=== PATIENT | female | born 1985 | race African-American/Black ===

== ENCOUNTER 2019-08-17 12:06 | Emergency (ER) | payer SELFPAY ==
[2019-08-17 13:14] LABS: #Basophils 0.1 thou/uL (0.0-0.2); #Eosinphils 0.1 thou/uL (0.0-0.7); #Lymphocytes 1.8 thou/uL (1.20-3.40); #Monocytes 0.5 thou/uL (0.11-0.59); #Neutrophils 8.2 thou/uL (1.40-6.50); %Basophils 0.5 % (0.0-1.0); %Eosinophils 1.3 % (0.0-10.0); %Lymphocytes 17.1 % (21.0-51.0); %Monocytes 4.8 % (0.0-10.0); %Neutrophils 76.2 % (42.0-75.0); Hemoglobin 12.4 g/dL (12.0-16.0); Mean Corpuscular HGB CONC 34.1 g/dL (32.0-36.0); Mean Corpuscular Hemoglobin 29.8 pg (27.0-31.0); Mean Corpuscular Volume 87.4 fL (78.0-98.0); Mean Platelet Volume 8.7 fL (7.4-10.4); Platelet Count 478 thou/uL (130-400); RBC Distribution Width 20.8 % (11.5-14.5); Red Blood Cell (RBC) Count 4.16 mill/uL (4.20-5.40); White Blood Cell (WBC) Count 10.7 thou/uL (4.8-10.8)
[2019-08-17 13:23] LABS: Bilirubin Negative (Negative); Blood, Urine Trace (Negative); Clarity Clear (Clear); Glucose, Urine (Dipstick) Normal (Negative); Leukocyte Negative Leu/uL (Negative); Nitrite Negative (Negative); Protein, Urine (Dipstick) Negative (Neg-Trace); RBC/HPF 0-3 HPF (0-3); Urobilinogen Normal mg/dL (Less than 2); WBC/HPF 0-3 HPF (0-3)
[2019-08-17 13:29] LABS: ALT (SGPT) 38 U/L (8-55); AST (SGOT) 28 U/L (5-34); Albumin 4.2 g/dL (3.5-5.0); Alkaline Phosphatase 156 U/L (40-110); Anion Gap 15 mmol/L (10-20); BUN (Urea Nitrogen) 7 mg/dL (7.0-18.7); Bilirubin, Total 0.6 mg/dL (0.2-1.2); Calc. Creatinine Clearance 0 mL/min (70-130); Calcium 9.7 mg/dL (7.8-10.44); Carbon Dioxide 22 mmol/L (22-29); Chloride 100 mmol/L (98-107); Estimated GFR-MDRD Greater than 90; Globulin 4.1 g/dL (2.4-3.5); Glucose 110 mg/dL (70-105); Lipase 147 U/L (8-78); Protein, Total 8.3 g/dL (6.0-8.3); Sodium 134 mmol/L (136-145)
[2019-08-17 13:29] LABS: Pregnancy Test - Urine (BHCG) Negative (Negative); Pregu Control Background? CLEAR/WHITE (CLR/WHITE); Pregu Control Bar Appear? YES (CONTROL BAR); Specific Gravity 1.012 (1.002-1.036)
[2019-08-17 13:33] LABS: Bacteria/HPF 1+ HPF (None Seen)
[2019-08-17 13:41] LABS: Potassium 2.9 mmol/L (3.5-5.1)
[2019-08-17] MEDS ORDERED: Lidocaine Viscous Sol 2% 15 ml UD Cup ONE (13:42)
[2019-08-17] MEDS ORDERED: Dicyclomine 20 MG TAB ONE (13:42)
[2019-08-17] MEDS ORDERED: Mag-Al 1200 mg/1200 mg/30 ML UDCUP ONE (13:42)
[2019-08-17] MEDS ORDERED: Ondansetron PF 4 MG/2 ML Vial ONE (13:42)
[2019-08-17] MEDS ORDERED: Potassium Chloride 20 MEQ TAB ONE (13:44)
[2019-08-17] MEDS ORDERED: Acetaminophen/Codeine 30-300mg Tablet ONE (14:20)
== END 2019-08-17 14:23 | disposition home or self-care (01) ==
LOC: ERS 12:06
DX: K52.9 Noninfective gastroenteritis and colitis, unspecified (principal); I10 Essential (primary) hypertension
CPT/HCPCS: 80053; 81003; 81015; 81025; 83690; 85025; 96374; J2405

== ENCOUNTER 2019-08-17 19:52 | Inpatient (IN) | payer SELFPAY ==
[~2019-08-17 19:52] MED LIST: ISOVUE-370 76%-LOCM 1 ML ONE
[2019-08-17] MEDS ORDERED: Morphine 4 MG/ML VIAL ONE ×2 (20:18→21:23)
[2019-08-17] MEDS ORDERED: Ondansetron PF 4 MG/2 ML Vial ONE (20:18)
[2019-08-17 20:31] LABS: #Eosinphils 0.1 thou/uL (0.0-0.7); #Lymphocytes 1.9 thou/uL (1.20-3.40); #Monocytes 0.6 thou/uL (0.11-0.59); #Neutrophils 7.9 thou/uL (1.40-6.50); %Basophils 0.3 % (0.0-1.0); %Eosinophils 1.1 % (0.0-10.0); %Monocytes 5.8 % (0.0-10.0); Hemoglobin 11.7 g/dL (12.0-16.0); Mean Corpuscular HGB CONC 33.7 g/dL (32.0-36.0); Mean Corpuscular Hemoglobin 29.8 pg (27.0-31.0); Mean Corpuscular Volume 88.3 fL (78.0-98.0); Mean Platelet Volume 8.4 fL (7.4-10.4); Platelet Count 447 thou/uL (130-400); RBC Distribution Width 20.6 % (11.5-14.5); Red Blood Cell (RBC) Count 3.95 mill/uL (4.20-5.40); White Blood Cell (WBC) Count 10.6 thou/uL (4.8-10.8)
[2019-08-17 20:42] LABS: BHCG - Serum Negative (NEGATIVE); Pregs Control Background? CLEAR/WHITE (CLR/WHITE); Pregs Control Bar Appear? YES (CONTROL BAR)
[2019-08-17 21:10] LABS: ALT (SGPT) 32 U/L (8-55); AST (SGOT) 23 U/L (5-34); Alkaline Phosphatase 144 U/L (40-110); Anion Gap 15 mmol/L (10-20); BUN (Urea Nitrogen) 9 mg/dL (7.0-18.7); Bilirubin, Total 0.4 mg/dL (0.2-1.2); CRP (Inflammatory) Less than 0.50 mg/dL (= or < 0.5); Calc. Creatinine Clearance 0 mL/min (70-130); Calcium 9.5 mg/dL (7.8-10.44); Carbon Dioxide 21 mmol/L (22-29); Chloride 104 mmol/L (98-107); Estimated GFR-MDRD Greater than 90; Globulin 3.7 g/dL (2.4-3.5); Glucose 111 mg/dL (70-105); Lipase 253 U/L (8-78); Potassium 3.5 mmol/L (3.5-5.1); Protein, Total 7.7 g/dL (6.0-8.3); Sodium 135 mmol/L (136-145)
--- NOTE | 2019-08-17 22:01 | CT ---
CT Abdomen Pelvis W Con: 08/17/2019 12:00 AM CLINICAL INFORMATION: Abdominal pain. History of pancreatitis COMPARISON: None. TECHNIQUE: Multiple contiguous axial images were obtained and a CT of the abdomen and pelvis with IV contrast. C oronal and sagittal reformats were performed. FINDINGS: Lower Chest: within normal limits. Abdomen: Liver: within normal limits. Bile Ducts: Normal caliber. Gallbladder: Removed Pancreas: Stranding changes surrounding the pancreatic head are likely secondary to pancreatitis. Spleen: within normal limits. Adrenals: within normal limits. Kidneys: within normal limits. Pelvis: Reproductive Organs: There are 2 calcified uterine fibroids. A 4.9 cm cystic structure in the right a dnexa likely represents an ovarian follicle/cyst. Ureters: within normal limits. Bladder: within normal limits. Peritoneum: No ascites or free air, no fluid collection. Bowel: Normal caliber. Normal appendix. Mesentery and Retroperitoneum: No enlarged mesenteric or retroperitoneal lymph nodes. Vessels: Normal. Abdominal Wall: within normal limits. Bones: Within normal limits IMPRESSION: 1. Acute pancreatitis 2. Uterine fibroids
[2019-08-17] MEDS ORDERED: Fentanyl 100 MCG/2 ML VIAL ONE (23:21)
[2019-08-18] MEDS ORDERED: Fentanyl 100 MCG/2 ML VIAL SLOW IVP PRN (00:51)
[2019-08-18] MEDS ORDERED: Sodium Chloride 0.9% 1,000 ML IV SCH (01:00)
[2019-08-18] MEDS: Morphine 4 MG/ML VIAL SLOW IVP PRN ×7 (01:14→20:45)
[2019-08-18] MEDS ORDERED: Bisacodyl 10 MG SUPP PR PRN (06:50)
--- NOTE | 2019-08-18 06:50 | PDOC.HHP ---
Hospitalist HPI - History of Present Illness Abdominal pain History of Present Illness: Patient is a 33 year old female with PMH alcoholic pancreatitis, history of cholecystectomy who presents for abdominal pain, vomiting after drinking binge. Patient normally drinks about 3 drinks three times a week however she went to a ball on Thursday and drank a gallon of alcoholic drink, developed vomiting over 2 days and then thursday developed an epigastric paijn radiating to the back similar to previuos alsocohlic pancreatitis episode she had last year after similar binge. Patient went to ED where lipase in 200s, CT A/p ordered and pending, elevated alk phos noted as well, patient has had her gallbladder out previuosly. otherwise only complains of constipation with no BM yesterday or today Hospitalist ROS - Review of Systems Constitutional: denies: fever, chills Eyes: denies: vision change, eyelid inflammation ENT: denies: ear discharge, throat pain, throat swelling Respiratory: denies: cough, shortness of breath Cardiovascular: denies: chest pain, palpitations Gastrointestinal: reports: nausea, abdominal pain, constipation. denies: vomiting Genitourinary: denies: dysuria, frequency Musculoskeletal: denies: neck pain, shoulder pain Skin: denies: rash, lesions Neurological: denies: weakness, numbness All other systems reviewed; all pertinent +/- noted in HPI/Subj - Medication Medications: Active Medications Generic Name Dose Route Start Last Admin Trade Name Freq PRN Reason Stop Dose Admin Sodium Chloride 1,000 mls @ 100 mls/hr 08/18/19 01:00 08/18/19 01:15 Normal Saline 0.9% IV 08/18/19 09:30 1,000 mls .Q10H ROBERT Administration Morphine Sulfate 4 mg 08/18/19 00:52 08/18/19 05:39 Morphine SLOW IVP 08/18/19 09:30 4 mg Q2H PRN Administration SEVERE BREATHROUGH PAIN Hospitalist History - Past Medical History Other Medical History: panbcreatitis - Past Surgical History Other Surgical History: cholecystectomy - Family History Other Family History: reviewed and noncontributory - Social History Alcohol: reports: Occassional (3 drinks 3 times a week) - Exam General Appearance: NAD, awake alert Eye: PERRL, anicteric sclera ENT: normocephalic atraumatic, no oropharyngeal lesions Neck: supple, symmetric, no JVD, no thyromegaly Heart: RRR, no murmur, no gallops, no rubs Respiratory: CTAB, no wheezes, no rales Gastrointestinal: soft, non-distended, normal bowel sounds, no palpable masses, no guarding, no rigidity Gastrointestinal - other findings: epigastric tenderness Extremities: no cyanosis, no clubbing, no edema Skin: no lesions, no rashes Neurological: cranial nerve grossly intact, normal sensation to touch, no weakness, no focal deficits Musculoskeletal: normal tone, normal strength Psychiatric: normal affect, normal behavior, A&O x 3, oriented to person, oriented to place, oriented to time Hospitalist Results - Labs Result Diagrams: 08/17/19 20:22 08/17/19 20:22 Lab results: WBC 10.6 thou/uL (4.8-10.8) 08/17/19 20:22 Hgb 11.7 g/dL (12.0-16.0) L 08/17/19 20:22 Hct 34.8 % (36.0-47.0) L 08/17/19 20:22 MCV 88.3 fL (78.0-98.0) 08/17/19 20:22 Plt Count 447 thou/uL (130-400) H 08/17/19 20:22 Neutrophils % 75.0 % (42.0-75.0) 08/17/19 20:22 Sodium 135 mmol/L (136-145) L 08/17/19 20:22 Potassium 3.5 mmol/L (3.5-5.1) 08/17/19 20:22 Chloride 104 mmol/L (98-107) 08/17/19 20:22 Carbon Dioxide 21 mmol/L (22-29) L 08/17/19 20:22 BUN 9 mg/dL (7.0-18.7) 08/17/19 20:22 Creatinine 0.64 mg/dL (0.6-1.1) 08/17/19 20:22 Glucose 111 mg/dL (70-105) H 08/17/19 20:22 Calcium 9.5 mg/dL (7.8-10.44) 08/17/19 20:22 Total Bilirubin 0.4 mg/dL (0.2-1.2) 08/17/19 20:22 AST 23 U/L (5-34) 08/17/19 20:22 ALT 32 U/L (8-55) 08/17/19 20:22 Alkaline Phosphatase 144 U/L (40-110) H 08/17/19 20:22 C-Reactive Protein Less than 0.50 mg/dL (= or < 0.5) 08/17/19 20:22 Serum Total Protein 7.7 g/dL (6.0-8.3) 08/17/19 20:22 Albumin 4.0 g/dL (3.5-5.0) 08/17/19 20:22 Lipase 253 U/L (8-78) H 08/17/19 20:22 Hospitalist H&P A/P - Problem (1) Pancreatitis Code(s): K85.90 - ACUTE PANCREATITIS WITHOUT NECROSIS OR INFECTION, UNSP Status: Acute (2) Elevated alkaline phosphatase level Code(s): R74.8 - ABNORMAL LEVELS OF OTHER SERUM ENZYMES Status: Acute (3) History of cholecystectomy Code(s): Z90.49 - ACQUIRED ABSENCE OF OTHER SPECIFIED PARTS OF DIGESTIVE TRACT Status: Acute (4) Alcohol abuse Code(s): F10.10 - ALCOHOL ABUSE, UNCOMPLICATED Status: Acute (5) Thrombocythemia Status: Acute - Plan Plan: - admit to floor - NPO, IVF, pain medication - suppository PRN constipation - follow up CT a/p and us abdomen, has had gallbladder out but could still have a duct stone, though clinical scenario seems more likely to be due to alcohol binge - upgrade to inpatient status
[2019-08-18] MEDS: Sodium Chloride 0.9% 1,000 ML IV SCH ×3 (08:14→18:31)
[2019-08-18] MEDS ORDERED: FLU VACC QS2019-20(6MOS UP)/PF 60 MCG/0.5 ML SYRINGE IM ONE (09:00)
[2019-08-18] MEDS: Enoxaparin Sodium 40 MG/0.4 ML SYRINGE SC SCH (09:16)
--- NOTE | 2019-08-18 11:04 | PDOC.HOSPP ---
- Subjective Encounter Date: 08/18/19 Encounter Time: 11:03 Subjective: Ms. Grande was seen today in follow-up of acute pancreatitis. She continues to have abdominal pain. She notes some nasuea, but has not vomited. - Objective Vital Signs & Weight: Vital Signs (12 hours) Temp Pulse Resp BP Pulse Ox 08/18/19 09:34 100 08/18/19 09:32 98.0 F 88 16 144/90 H 100 08/18/19 08:19 98.1 F 107 H 16 117/73 99 08/18/19 03:26 98.0 F 101 H 18 150/104 H 100 08/17/19 23:38 98.1 F 93 15 159/99 H 99 Weight Weight 167 lb 14.4 oz I&O: 08/17/19 08/18/19 08/19/19 06:59 06:59 06:59 Intake Total 558 Output Total 925 Balance -367 Result Diagrams: 08/17/19 20:22 08/17/19 20:22 Hospitalist ROS - Medication Medications: Active Medications Generic Name Dose Route Start Last Admin Trade Name Nelly PRN Reason Stop Dose Admin Enoxaparin Sodium 40 mg 08/18/19 09:00 08/18/19 09:16 Lovenox SC 40 mg 0900 ROBERT Administration Sodium Chloride 1,000 mls @ 150 mls/hr 08/18/19 07:00 08/18/19 09:12 Normal Saline 0.9% IV 1,000 mls .Q6H40M ROBERT Administration Sodium Chloride 10 ml 08/18/19 09:00 08/18/19 09:16 Flush - Normal Saline IVF 10 ml Q12HR ROBERT Administration - Exam Eye: PERRL, anicteric sclera Heart: RRR, no murmur, no gallops, no rubs, normal peripheral pulses Respiratory: CTAB, no wheezes, no rales, no ronchi, normal chest expansion, no tachypnea, normal percussion Gastrointestinal: soft, tender to palpation (+ diminished bowel sounds, no rebound voluntary guarding) Extremities: no cyanosis, no clubbing, no edema Hosp A/P (1) Acute pancreatitis Code(s): K85.90 - ACUTE PANCREATITIS WITHOUT NECROSIS OR INFECTION, UNSP Status: Acute (2) Alcohol abuse Code(s): F10.10 - ALCOHOL ABUSE, UNCOMPLICATED Status: Chronic - Plan * Acute pancreatitis- continue bowel rest, IV fluids, and Analgesics * Alcohol abuse- will offer brief counseling * Will place on IV folic acid, and thiamine * ASE precautions, and Ativan PRN
[2019-08-18] MEDS ORDERED: Multivit, Adult Inj 10 ML VIAL IV SCH (11:15)
[2019-08-18] MEDS ORDERED: Multivitamins, Adult 10 ML in Sodium Chloride 0.9% 1,000 ML IV SCH (11:45)
[2019-08-18] MEDS: Lorazepam 2 MG/ML VIAL SLOW IVP PRN ×3 (13:21→23:07)
[2019-08-18] MEDS: Ondansetron PF 4 MG/2 ML Vial IVP PRN (13:21)
[2019-08-18] MEDS ORDERED: Diazepam 5 MG TAB PO PRN (19:52)
--- NOTE | 2019-08-18 20:05 | RAD ---
EXAM: Single view of the chest HISTORY: Chest pain COMPARISON: None FINDINGS: Single view of the chest shows a normal sized cardiomediastinal silhouette. There is no naga dence of consolidation, mass, or pleural effusion. The bones are unremarkable. IMPRESSION: No evidence of acute cardiopulmonary disease
[2019-08-18 20:15] LABS: #Eosinphils 0.2 thou/uL (0.0-0.7); #Lymphocytes 1.2 thou/uL (1.20-3.40); #Monocytes 0.5 thou/uL (0.11-0.59); #Neutrophils 12.4 thou/uL (1.40-6.50); %Basophils 0.1 % (0.0-1.0); %Eosinophils 1.3 % (0.0-10.0); %Lymphocytes 8.4 % (21.0-51.0); %Monocytes 3.6 % (0.0-10.0); %Neutrophils 86.6 % (42.0-75.0); Hemoglobin 12.2 g/dL (12.0-16.0); Mean Corpuscular HGB CONC 33.4 g/dL (32.0-36.0); Mean Corpuscular Hemoglobin 29.8 pg (27.0-31.0); Mean Corpuscular Volume 89.3 fL (78.0-98.0); Mean Platelet Volume 8.3 fL (7.4-10.4); Platelet Count 411 thou/uL (130-400); RBC Distribution Width 20.4 % (11.5-14.5); Red Blood Cell (RBC) Count 4.09 mill/uL (4.20-5.40); White Blood Cell (WBC) Count 14.3 thou/uL (4.8-10.8)
[2019-08-18 20:30] LABS: Lactic Acid 0.5 mmol/L (0.5-2.2)
[2019-08-18 20:36] LABS: ALT (SGPT) 25 U/L (8-55); AST (SGOT) 19 U/L (5-34); Albumin 3.9 g/dL (3.5-5.0); Alkaline Phosphatase 136 U/L (40-110); Anion Gap 15 mmol/L (10-20); BUN (Urea Nitrogen) 4 mg/dL (7.0-18.7); Bilirubin, Total 0.5 mg/dL (0.2-1.2); Calc. Creatinine Clearance 173 mL/min (70-130); Calcium 9.8 mg/dL (7.8-10.44); Carbon Dioxide 21 mmol/L (22-29); Chloride 101 mmol/L (98-107); Estimated GFR-MDRD Greater than 90; Globulin 3.9 g/dL (2.4-3.5); Glucose 97 mg/dL (70-105); Lipase 971 U/L (8-78); Magnesium 1.6 mg/dL (1.6-2.6); Potassium 3.3 mmol/L (3.5-5.1); Protein, Total 7.8 g/dL (6.0-8.3); Sodium 134 mmol/L (136-145)
[2019-08-18] MEDS ORDERED: Potassium Chloride 20 MEQ in Premix Bag 1 BAG IVPB SCH ×2 (21:30→22:00)
[2019-08-18] MEDS: Lactated Ringer's 1,000 ML IV SCH ×2 (22:01→23:04)
[2019-08-19] MEDS: Ondansetron PF 4 MG/2 ML Vial IVP PRN ×2 (00:24→08:57)
[2019-08-19] MEDS: Morphine 4 MG/ML VIAL SLOW IVP PRN ×7 (00:24→23:51)
[2019-08-19] MEDS: Sodium Chloride 0.9% 1,000 ML IV SCH ×4 (02:29→23:56)
[2019-08-19] MEDS ORDERED: Labetalol HCl 100 MG/20 ML VIAL SLOW IVP PRN (02:41)
[2019-08-19] MEDS: Lorazepam 2 MG/ML VIAL SLOW IVP PRN (03:04)
[2019-08-19 05:03] LABS: #Basophils 0.1 thou/uL (0.0-0.2); #Eosinphils 0.2 thou/uL (0.0-0.7); #Lymphocytes 1.6 thou/uL (1.20-3.40); #Monocytes 0.6 thou/uL (0.11-0.59); %Basophils 0.5 % (0.0-1.0); %Eosinophils 1.5 % (0.0-10.0); %Lymphocytes 12.7 % (21.0-51.0); %Monocytes 4.8 % (0.0-10.0); %Neutrophils 80.5 % (42.0-75.0); Hemoglobin 11.4 g/dL (12.0-16.0); Mean Corpuscular HGB CONC 32.1 g/dL (32.0-36.0); Mean Corpuscular Hemoglobin 28.7 pg (27.0-31.0); Mean Corpuscular Volume 89.2 fL (78.0-98.0); Mean Platelet Volume 8.4 fL (7.4-10.4); Platelet Count 393 thou/uL (130-400); RBC Distribution Width 20.3 % (11.5-14.5); Red Blood Cell (RBC) Count 3.99 mill/uL (4.20-5.40); White Blood Cell (WBC) Count 12.4 thou/uL (4.8-10.8)
[2019-08-19 05:19] LABS: ALT (SGPT) 22 U/L (8-55); AST (SGOT) 19 U/L (5-34); Albumin 3.7 g/dL (3.5-5.0); Alkaline Phosphatase 131 U/L (40-110); Anion Gap 14 mmol/L (10-20); BUN (Urea Nitrogen) 4 mg/dL (7.0-18.7); Bilirubin, Total 0.5 mg/dL (0.2-1.2); Calc. Creatinine Clearance 183 mL/min (70-130); Calcium 9.6 mg/dL (7.8-10.44); Carbon Dioxide 24 mmol/L (22-29); Chloride 99 mmol/L (98-107); Estimated GFR-MDRD Greater than 90; Globulin 3.2 g/dL (2.4-3.5); Glucose 97 mg/dL (70-105); Lipase 841 U/L (8-78); Magnesium 1.5 mg/dL (1.6-2.6); Potassium 3.3 mmol/L (3.5-5.1); Protein, Total 6.9 g/dL (6.0-8.3); Sodium 134 mmol/L (136-145)
[2019-08-19] MEDS: Enoxaparin Sodium 40 MG/0.4 ML SYRINGE SC SCH (08:57)
--- NOTE | 2019-08-19 10:29 | PDOC.HOSPP ---
- Subjective Encounter Date: 08/19/19 Encounter Time: 10:27 Subjective: Ms. Grande was seen today in follow-up of acute pancreatitis. She continues to have significant pain. She rates it about a 6/10. She tells me the medication for pain wares off quickly. - Objective Vital Signs & Weight: Vital Signs (12 hours) Temp Pulse BP Pulse Ox 08/19/19 08:00 96 08/19/19 07:44 98.0 F 08/19/19 04:00 143/102 H 08/19/19 03:45 98.6 F 08/19/19 03:03 128 H 148/103 H 08/19/19 00:00 98.6 F 151/116 H 96 Weight Weight 167 lb 14.4 oz Most Recent Monitor Data Heart Rate from ECG 111 NIBP 130/86 NIBP BP-Mean 100 Respiration from ECG 16 SpO2 97 I&O: 08/18/19 08/19/19 08/20/19 06:59 06:59 06:59 Intake Total 558 945 Output Total 927 6797 500 Balance -367 205 500 Result Diagrams: 08/19/19 04:38 08/19/19 04:38 Hospitalist ROS - Medication Medications: Active Medications Generic Name Dose Route Start Last Admin Trade Name Freq PRN Reason Stop Dose Admin Enoxaparin Sodium 40 mg 08/18/19 09:00 08/19/19 08:57 Lovenox SC 40 mg 0900 ROBERT Administration Thiamine HCl 100 mg/ Sodium 51 mls @ 100 mls/hr 08/18/19 12:00 08/18/19 12:08 Chloride IVPB 51 mls 1200 ROBERT Administration Sodium Chloride 1,000 mls @ 150 mls/hr 08/18/19 18:29 08/19/19 08:55 Normal Saline 0.9% IV 1,000 mls .Q6H40M ROBERT Administration Labetalol HCl 20 mg 08/19/19 02:41 08/19/19 03:03 Normodyne SLOW IVP 20 mg Q4H PRN Administration HR>120 Lorazepam 1 mg 08/18/19 11:09 08/19/19 03:04 Ativan SLOW IVP 1 mg Q4H PRN Administration Anxiety/Agitation Morphine Sulfate 4 mg 08/18/19 10:40 08/19/19 08:56 Morphine SLOW IVP 4 mg Q4H PRN Administration Ear Pain Ondansetron HCl 4 mg 08/18/19 06:50 08/19/19 08:57 Zofran IVP 4 mg Q6H PRN Administration Nausea/Vomiting Sodium Chloride 10 ml 08/18/19 09:00 08/19/19 08:58 Flush - Normal Saline IVF 10 ml Q12HR ROBERT Administration - Exam Eye: PERRL Heart: RRR, no murmur, no gallops, no rubs, normal peripheral pulses Respiratory: CTAB, no wheezes, no rales, no ronchi, normal chest expansion, no tachypnea, normal percussion Gastrointestinal: soft (+ epigastric tenderness), normal bowel sounds, no palpable masses, no hepatomegaly Hosp A/P (1) Acute pancreatitis Code(s): K85.90 - ACUTE PANCREATITIS WITHOUT NECROSIS OR INFECTION, UNSP Status: Acute (2) Alcohol abuse Code(s): F10.10 - ALCOHOL ABUSE, UNCOMPLICATED Status: Chronic - Plan * Acute pancreatitis- continue bowel rest, IV fluids, and Analgesics * Her abdomen is softer today, but she continues to have pain- will consult GI to aid in management- she may benefit from Naso-jejuenal feeding * Alcohol abuse- continue ASE protocol, and Ativan as needed * She does not appear to require IMCU care-but she likely would benefit from continues telemetry monitoring- will transfer to Tele
--- NOTE | 2019-08-19 14:18 | EKG ---
Test Reason : Blood Pressure : / mmHG Vent. Rate : 125 BPM Atrial Rate : 125 BPM P-R Int : 146 ms QRS Dur : 084 ms QT Int : 312 ms P-R-T Axes : 065 068 050 degrees QTc Int : 450 ms Sinus tachycardia Otherwise normal ECG No previous ECGs available Confirmed by DR. Kalpana PEPPER ([id number]) on 08/19/2019 2:18:15 PM Referred By: QIANA Confirmed By:DR. Kalpana PEPPER
[2019-08-19] MEDS ORDERED: Pantoprazole 40 MG VIAL IVP SCH (16:15)
--- NOTE | 2019-08-19 21:14 | CON ---
DATE OF CONSULTATION: 08/19/2019 REQUESTING PHYSICIAN: Dr. Mcconnell. REASON FOR CONSULTATION: Acute pancreatitis. HISTORY OF PRESENT ILLNESS: Nadira Grande is a 33-year-old woman, who was admitted to the hospital a couple of nights ago with acute recurrent alcoholic pancreatitis. She has a prior history of cholecystectomy and says that a few years ago she was hospitalized in [place] with acute alcoholic pancreatitis. She has no chronic gastrointestinal symptoms otherwise. Evidently last Thursday she was at a republican and had over a gallon of alcohol. This is on top of her baseline of 3 drinks 3 times per week. Following that republican, she started having episodes of nonbloody emesis, which progressed to abdominal pain over the next couple of days. Over the past 3 to 4 days since then she has had worsened epigastric pain, which seems to radiate to the back associated with nausea and a couple more episodes of clear emesis. Upon presentation, she was found to have lipase elevation, which is currently at 841, but LFTs have been normal. Labs otherwise essentially unremarkable. A CT scan demonstrated characteristics of inflammatory stranding around the pancreatic head, but normal appearing liver and bile duct with absent gallbladder. She has been receiving IV fluid resuscitation adequately as well as morphine, which is currently being given every 3 hours. The patient states her pain is essentially unchanged from admission. She has remained hemodynamically stable with some intermittent tachycardia. She has not had any bowel movement since arrival. REVIEW OF SYSTEMS: Full review of systems including constitutional, head, eyes, ears, nose, throat, GI, , cardiovascular, respiratory, musculoskeletal, neurologic systems is negative except as noted in the HPI. PAST MEDICAL HISTORY: Cholecystectomy, alcoholic pancreatitis. OUTPATIENT MEDICATIONS: Amlodipine. INPATIENT MEDICATIONS: 1. Dulcolax p.r.n. 2. Valium p.r.n. 3. Lovenox 40 mg subcutaneous daily. 4. Labetalol p.r.n. 5. Morphine 4 mg every 3 hours p.r.n. 6. Zofran 4 mg every 6 hours p.r.n. 7. Thiamine 100 mg daily. FAMILY HISTORY: Noncontributory. SOCIAL HISTORY: Normally, the patient will have about 3 alcoholic beverages 3 times per week with intermittent binges. PHYSICAL EXAMINATION: VITAL SIGNS: Temperature 98.2, blood pressure 140/85, pulse 103, 96% oxygen saturation on room air. GENERAL: A 33-year-old woman lying in bed comfortably, in no acute distress. SKIN: No jaundice, no rashes were palpable. EYES: No scleral icterus. Extraocular movements intact. ENT: Mucous membranes moist. No oral lesions. LYMPH: No submandibular, supraclavicular lymphadenopathy. ENDOCRINE: Thyroid nontender to palpation. HEART: Regular rate and rhythm. LUNGS: Clear to auscultation bilaterally. ABDOMEN: Nondistended. Bowel sounds are hypoactive, but present. The abdomen is soft tender to palpation in the epigastrium. No guarding or rebound tenderness. EXTREMITIES: No peripheral edema. VESSELS: Radial pulses 2+ bilaterally. NEUROLOGIC: Cranial nerves 2-12 intact bilaterally. No focal deficits. LABORATORY STUDIES: WBC 12.4, hemoglobin 11.4, platelets 393, BUN 4, creatinine 0.53, glucose 97. D-dimer 1.79. TSH undetectable. Lipase 841. Lactic acid 0.5. Total bilirubin 0.5, alkaline phosphatase 131, AST 19, ALT 22, albumin 3.7. Troponin negative. test negative. Alcohol level negative. IMAGING STUDIES: On 08/17/2019, CT of the abdomen and pelvis demonstrates inflammatory stranding around the pancreatic head, normal appearing liver, bile ducts and spleen. Gallbladder is absent. She has some uterine fibroids and a 4.9 cm adnexal cyst. ASSESSMENT AND PLAN: 1. Acute alcoholic pancreatitis, recurrent. 2. Abdominal pain, secondary to pancreatitis. I have very low suspicion for any biliary etiology here given the essentially normal liver function tests, her post cholecystectomy state. No evidence of biliary dilation on imaging. Everything seems consistent with acute recurrent alcoholic pancreatitis. The patient really needs to stay away from alcohol from this point forward. Current supportive care seems appropriate. I would continue her on n.p.o. status for now, advance diet only when her pain requirements are decreasing and she starts feeling hungry. I would not consider any nasoenteric feeding until hospital day #5 or later. It would be reasonable to add IV Protonix 40 mg once daily in the acute setting. No other recommendations from a GI perspective. Please call back at anytime with questions or concerns. Job ID: [id number]
[2019-08-20] MEDS: Morphine 4 MG/ML VIAL SLOW IVP PRN ×6 (03:11→21:28)
[2019-08-20 04:22] LABS: #Eosinphils 0.2 thou/uL (0.0-0.7); #Lymphocytes 1.6 thou/uL (1.20-3.40); #Monocytes 0.6 thou/uL (0.11-0.59); #Neutrophils 6.1 thou/uL (1.40-6.50); %Basophils 0.3 % (0.0-1.0); %Eosinophils 2.8 % (0.0-10.0); %Lymphocytes 18.3 % (21.0-51.0); %Monocytes 7.4 % (0.0-10.0); %Neutrophils 71.2 % (42.0-75.0); Hemoglobin 10.3 g/dL (12.0-16.0); Mean Corpuscular HGB CONC 32.3 g/dL (32.0-36.0); Mean Corpuscular Volume 89.8 fL (78.0-98.0); Mean Platelet Volume 8.6 fL (7.4-10.4); Platelet Count 320 thou/uL (130-400); RBC Distribution Width 20.2 % (11.5-14.5); Red Blood Cell (RBC) Count 3.56 mill/uL (4.20-5.40); White Blood Cell (WBC) Count 8.5 thou/uL (4.8-10.8)
[2019-08-20 04:41] LABS: Anion Gap 15 mmol/L (10-20); BUN (Urea Nitrogen) 4 mg/dL (7.0-18.7); Calc. Creatinine Clearance 190 mL/min (70-130); Calcium 9.3 mg/dL (7.8-10.44); Carbon Dioxide 21 mmol/L (22-29); Chloride 102 mmol/L (98-107); Estimated GFR-MDRD Greater than 90; Glucose 64 mg/dL (70-105); Sodium 135 mmol/L (136-145)
[2019-08-20] MEDS: Sodium Chloride 0.9% 1,000 ML IV SCH (07:54)
[2019-08-20] MEDS: Enoxaparin Sodium 40 MG/0.4 ML SYRINGE SC SCH (07:56)
[2019-08-20] MEDS: Pantoprazole 40 MG VIAL IVP SCH (07:57)
--- NOTE | 2019-08-20 10:28 | PRG ---
DATE OF SERVICE: SUBJECTIVE: Ms. Grande says her abdominal pain level is about the same as yesterday. She was able to get some sleep last night, but continued to request pain medicine frequently. No nausea or vomiting this morning. She has remained hemodynamically stable. PHYSICAL EXAMINATION: VITAL SIGNS: Temperature 98.0, pulse 95, blood pressure 126/78, 99% oxygen saturation on room air. GENERAL: Lying in bed comfortably, in no acute distress. HEART: Regular rate and rhythm. LUNGS: Clear to auscultation bilaterally. ABDOMEN: Nondistended. Bowel sounds are hypoactive, but present and soft. Some tenderness to palpation in the epigastrium, but no guarding or rebound tenderness. EXTREMITIES: No peripheral edema. LABORATORY STUDIES: WBC down to 8.5, hemoglobin 10.3, platelets 320. Sodium 135, potassium 3.0, BUN 4, creatinine 0.51, glucose 64, calcium 9.3. ASSESSMENT AND PLAN: 1. Acute alcoholic pancreatitis, recurrent. 2. Abdominal pain, secondary to pancreatitis. Laboratory studies all remain favorable. She has remained hemodynamically stable. Continue with current supportive care, IV fluids. I would continue her on n.p.o. status for now, and advance diet only when pain requirements are decreasing, and she is starting to feel hungry. No other new recommendations from a GI perspective. Job ID: [id number]
--- NOTE | 2019-08-20 15:05 | PDOC.HOSPP ---
- Subjective Encounter Date: 08/20/19 Encounter Time: 14:00 non-verbal Subjective: CC: pancreatitis The patient has persistent pain in her abdomen which is 06/21. Last time she had pancreatitis she was in the hospital for a week. The patient drank clear liquids last night and she did not tolerate it. She denies nausea or vomiting, but she took a shower today and says that made her feel worst and she had spit up some green phlegm. She hasn't had a bowel movement since prior to admission. Prior to admission patient states she drank 1 gallon of beer. She doesn't drink regularly but says it was the first time she didn't have child- care duties. Her Kids are 12 and 2. - Objective Vital Signs & Weight: Vital Signs (12 hours) Temp Pulse Resp BP Pulse Ox 08/20/19 15:01 98.3 F 92 17 127/80 99 08/20/19 11:43 97.7 F 90 16 121/83 98 08/20/19 07:44 98 F 95 16 126/78 99 08/20/19 03:58 98.0 F 95 16 126/77 96 Weight Weight 167 lb 14.4 oz Most Recent Monitor Data Heart Rate from ECG 112 NIBP 140/100 NIBP BP-Mean 113 Respiration from ECG 25 SpO2 96 I&O: 08/19/19 08/20/19 08/21/19 06:59 06:59 06:59 Intake Total 945 Output Total 1150 500 Balance -205 -500 Result Diagrams: 08/20/19 03:58 08/20/19 03:58 Hospitalist ROS - Review of Systems Constitutional: denies: fever, chills ENT: denies: ear discharge Cardiovascular: denies: chest pain, palpitations Gastrointestinal: reports: abdominal pain. denies: diarrhea - Medication Medications: Active Medications Generic Name Dose Route Start Last Admin Trade Name Freq PRN Reason Stop Dose Admin Enoxaparin Sodium 40 mg 08/18/19 09:00 08/20/19 07:56 Lovenox SC 40 mg 0900 [facility] Administration Thiamine HCl 100 mg/ Sodium 51 mls @ 100 mls/hr 08/18/19 12:00 08/20/19 11:31 Chloride IVPB 51 mls 1200 ROBERT Administration Labetalol HCl 20 mg 08/19/19 02:41 08/19/19 03:03 Normodyne SLOW IVP 20 mg Q4H PRN Administration HR>120 Lorazepam 1 mg 08/18/19 11:09 08/19/19 03:04 Ativan SLOW IVP 1 mg Q4H PRN Administration Anxiety/Agitation Morphine Sulfate 4 mg 08/19/19 10:34 08/20/19 11:31 Morphine SLOW IVP 4 mg Q3H PRN Administration Moderate to Severe Pain (6-10) Ondansetron HCl 4 mg 08/18/19 06:50 08/19/19 08:57 Zofran IVP 4 mg Q6H PRN Administration Nausea/Vomiting Pantoprazole Sodium 40 mg 08/20/19 09:00 08/20/19 07:57 Protonix IVP 40 mg DAILY ROBERT Administration Sodium Chloride 10 ml 08/18/19 09:00 08/20/19 08:11 Flush - Normal Saline IVF 10 ml Q12HR ROBERT Administration - Exam General Appearance: NAD, awake alert Eye: PERRL, anicteric sclera ENT: normocephalic atraumatic, no oropharyngeal lesions Neck: supple, symmetric, no JVD, no thyromegaly Heart: RRR, no murmur, no gallops, no rubs Respiratory: CTAB, no wheezes, no rales, no ronchi Respiratory - other findings: takes shallow breaths due to pain Gastrointestinal: soft Gastrointestinal - other findings: RUQ tenderness present. Mild guarding present. NO rebound or rigidity Extremities: no cyanosis, no clubbing, no edema Hosp A/P - Plan Chest X ray: no acute disease This is a 33 year old female admitted for acute alcoholic pancreatitis Acute pancreatitis secondary to alcoholism - CT showed acute pancreatitis. On morphine every 3 hours prn as needed. Will add IV toradol, bentyl prn - switch IV fluids to D5 NS Hyponatremia - sodium of 135. Continue IV fluids Hypokalemia - potassium level was noted to be 3.0 Will replace with 40 mg IV - recheck potassium around 8:00 pm Alcohol abuse - s/p banana bag - continue thiamine - check folate levels Hypertension - hold amlodipine for now Code status: full code
[2019-08-20] MEDS ORDERED: Potassium Chloride 40 MEQ in Sodium Chloride 0.9% 250 ML 250 ML IVPB SCH (15:15)
[2019-08-20 16:03] LABS: Cardiac Risk 2.8 (Less than 4.5)
[2019-08-20] MEDS: Dextrose 5 % And 0.9 % NaCl 1,000 ML IV SCH (16:48)
[2019-08-20 20:13] LABS: Potassium 3.3 mmol/L (3.5-5.1)
[2019-08-20] MEDS: Senokot S 8.6-50 MG TAB PO SCH (21:29)
[2019-08-20] MEDS ORDERED: Folic Acid 1 MG TAB PO SCH (22:30)
[2019-08-20] MEDS ORDERED: Potassium Chloride 20 MEQ TAB PO SCH (22:30)
[2019-08-21] MEDS: Morphine 4 MG/ML VIAL SLOW IVP PRN ×8 (00:48→23:10)
[2019-08-21] MEDS: Dextrose 5 % And 0.9 % NaCl 1,000 ML IV SCH ×3 (00:49→20:59)
[2019-08-21 06:42] LABS: Hemoglobin 9.9 g/dL (12.0-16.0); Mean Corpuscular HGB CONC 33.5 g/dL (32.0-36.0); Mean Corpuscular Volume 89.7 fL (78.0-98.0); Mean Platelet Volume 8.6 fL (7.4-10.4); Platelet Count 288 thou/uL (130-400); RBC Distribution Width 20.1 % (11.5-14.5); Red Blood Cell (RBC) Count 3.31 mill/uL (4.20-5.40)
[2019-08-21 07:01] LABS: Anion Gap 11 mmol/L (10-20); BUN (Urea Nitrogen) Less than 4 mg/dL (7.0-18.7); Calc. Creatinine Clearance 180 mL/min (70-130); Calcium 9.4 mg/dL (7.8-10.44); Carbon Dioxide 22 mmol/L (22-29); Chloride 106 mmol/L (98-107); Estimated GFR-MDRD Greater than 90; Glucose 96 mg/dL (70-105); Potassium 3.8 mmol/L (3.5-5.1); Sodium 135 mmol/L (136-145)
[2019-08-21] MEDS: Enoxaparin Sodium 40 MG/0.4 ML SYRINGE SC SCH (08:32)
[2019-08-21] MEDS: Pantoprazole 40 MG VIAL IVP SCH (08:33)
[2019-08-21] MEDS: Senokot S 8.6-50 MG TAB PO SCH ×2 (08:33→20:04)
[2019-08-21] MEDS ORDERED: Folic Acid 1 MG TAB PO SCH (09:00)
--- NOTE | 2019-08-21 11:27 | PRG ---
DATE OF SERVICE: 08/21/2019 SUBJECTIVE: Ms. Grande says her abdominal discomfort persists. She has still been requesting morphine every 3 to 4 hours. She had a single episode of emesis yesterday. Hemodynamics status and laboratory parameters all remain favorable. She had a bowel movement after enema yesterday. OBJECTIVE: VITAL SIGNS: Temperature 97.7, pulse 75, blood pressure 114/60, and 98% oxygen saturation on room air. GENERAL: No acute distress. HEART: Regular rate and rhythm. LUNGS: Clear to auscultation bilaterally. ABDOMEN: Bowel sounds hypoactive. Soft. Tender to palpation in the epigastrium. No guarding or rebound tenderness. EXTREMITIES: No peripheral edema. LABORATORY STUDIES: WBC 6.0, hemoglobin 9.9, and platelets 288. Sodium 135, potassium 3.8, BUN less than 4, creatinine 0.54, and calcium 9.4. ASSESSMENT AND PLAN: 1. Acute alcoholic pancreatitis, recurrent. 2. Epigastric pain, secondary to pancreatitis. I discussed with the patient that all of her lab parameters remain favorable, she is being adequately resuscitated, still awaiting symptom improvement. Would remain n.p.o. until her pain medication requirements have decreased. Job ID: [id number]
--- NOTE | 2019-08-21 21:23 | PDOC.HOSPP ---
- Subjective Encounter Date: 08/21/19 Encounter Time: 19:00 Subjective: The patient states she still has some abdominal pain. Last night she threw up her potassium pills and threw up her folic acid pill this morning. She had an enema yesterday and only a few drops of stool came out. She has only been getting morphine for pain. SHe says she hasn't received the toradol or bentyl yet. SHe will try clear liquid tomorrow - Objective Vital Signs & Weight: Vital Signs (12 hours) Temp Pulse Resp BP Pulse Ox 08/21/19 16:00 16 08/21/19 15:50 97.7 F 66 16 131/79 99 08/21/19 12:00 97.5 F L 72 18 121/71 99 Weight Weight 167 lb 14.4 oz Most Recent Monitor Data Heart Rate from ECG 112 NIBP 140/100 NIBP BP-Mean 113 Respiration from ECG 25 SpO2 96 I&O: 08/20/19 08/21/19 08/22/19 06:59 06:59 06:59 Intake Total 2596 Output Total 500 Balance -500 2596 Result Diagrams: 08/21/19 06:13 08/21/19 06:13 Hospitalist ROS - Review of Systems Constitutional: denies: fever, chills Respiratory: denies: cough, dry - Medication Medications: Active Medications Generic Name Dose Route Start Last Admin Trade Name Freq PRN Reason Stop Dose Admin Bisacodyl 10 mg 08/18/19 06:50 08/20/19 16:10 Dulcolax IN 10 mg DAILYPRN PRN Administration Constipation Enoxaparin Sodium 40 mg 08/18/19 09:00 08/21/19 08:32 Lovenox SC 40 mg 0900 ROBERT Administration Folic Acid 1 mg 08/21/19 09:00 08/21/19 08:33 Folvite PO 1 mg DAILY ROBERT Administration Thiamine HCl 100 mg/ Sodium 51 mls @ 100 mls/hr 08/18/19 12:00 08/21/19 11:37 Chloride IVPB 51 mls 1200 ROBERT Administration Dextrose/Sodium Chloride 1,000 mls @ 100 mls/hr 08/20/19 15:15 08/21/19 20:59 D5 0.9% Ns IV 1,000 mls .Q10H ROBERT Administration Labetalol HCl 20 mg 08/19/19 02:41 11/08/19 03:03 Normodyne SLOW IVP 20 mg Q4H PRN Administration HR>120 Lorazepam 1 mg 08/18/19 11:09 08/19/19 03:04 Ativan SLOW IVP 1 mg Q4H PRN Administration Anxiety/Agitation Morphine Sulfate 4 mg 08/19/19 10:34 08/21/19 20:05 Morphine SLOW IVP 4 mg Q3H PRN Administration Moderate to Severe Pain (6-10) Ondansetron HCl 4 mg 08/18/19 06:50 08/19/19 08:57 Zofran IVP 4 mg Q6H PRN Administration Nausea/Vomiting Pantoprazole Sodium 40 mg 08/20/19 09:00 08/21/19 08:33 Protonix IVP 40 mg DAILY ROBERT Administration Senna/Docusate Sodium 1 tab 08/20/19 21:00 08/21/19 20:04 Senokot S PO 1 tab BID ROBERT Administration Sodium Chloride 10 ml 08/18/19 09:00 08/21/19 20:11 Flush - Normal Saline IVF 10 ml Q12HR ROBERT Administration - Exam General Appearance: NAD, awake alert Eye: PERRL, anicteric sclera ENT: normocephalic atraumatic, no oropharyngeal lesions Neck: supple, symmetric, no JVD, no thyromegaly Heart: RRR, no murmur, no gallops, no rubs Respiratory: CTAB, no wheezes, no rales, no ronchi Gastrointestinal: soft Gastrointestinal - other findings: diffuse mild tenderness, hypoactive bowel sounds. Extremities: no cyanosis, no clubbing, no edema Skin: normal turgor, no lesions, no rashes Neurological: cranial nerve grossly intact, normal sensation to touch, no focal deficits, no new deficit Musculoskeletal: normal tone, normal strength Hosp A/P - Plan Chest X ray: no acute disease This is a 33 year old female admitted for acute alcoholic pancreatitis Acute pancreatitis secondary to alcoholism - CT showed acute pancreatitis. On morphine every 3 hours prn as needed. Continue IV toradol, bentyl prn - continue D5NS with IV fluids Hyponatremia -stable at 135 Hypokalemia -resolved Alcohol abuse - s/p banana bag - continue thiamine Folate deficiency - switch to 0.4 mg SC folate daily Hypertension - hold amlodipine for now Dispo: d/c when tolerating diet Code status: full code
[2019-08-22] MEDS: Morphine 4 MG/ML VIAL SLOW IVP PRN ×6 (02:17→23:41)
[2019-08-22 05:03] LABS: Mean Corpuscular HGB CONC 32.9 g/dL (32.0-36.0); Mean Corpuscular Hemoglobin 29.5 pg (27.0-31.0); Mean Corpuscular Volume 89.7 fL (78.0-98.0); Mean Platelet Volume 8.7 fL (7.4-10.4); Platelet Count 300 thou/uL (130-400); RBC Distribution Width 19.9 % (11.5-14.5); Red Blood Cell (RBC) Count 3.37 mill/uL (4.20-5.40)
[2019-08-22] MEDS: Ketorolac Tromethamine 30 MG/ML VIAL IVP PRN ×3 (05:15→20:21)
[2019-08-22 05:27] LABS: Anion Gap 11 mmol/L (10-20); BUN (Urea Nitrogen) Less than 4 mg/dL (7.0-18.7); Calc. Creatinine Clearance 180 mL/min (70-130); Calcium 9.4 mg/dL (7.8-10.44); Carbon Dioxide 24 mmol/L (22-29); Chloride 104 mmol/L (98-107); Estimated GFR-MDRD Greater than 90; Glucose 108 mg/dL (70-105); Potassium 3.2 mmol/L (3.5-5.1); Sodium 136 mmol/L (136-145)
[2019-08-22] MEDS: Dextrose 5 % And 0.9 % NaCl 1,000 ML IV SCH ×2 (05:48→17:24)
[2019-08-22] MEDS: Enoxaparin Sodium 40 MG/0.4 ML SYRINGE SC SCH (08:36)
[2019-08-22] MEDS: Pantoprazole 40 MG VIAL IVP SCH (08:36)
[2019-08-22] MEDS: Senokot S 8.6-50 MG TAB PO SCH ×2 (08:36→20:21)
--- NOTE | 2019-08-22 10:12 | PRG ---
DATE OF SERVICE: 08/22/2019 SUBJECTIVE: Ms. Grande has still been requesting morphine frequently. She drank some soda earlier today and felt it made her a bit nauseated, so she backed off. She has had no bowel movements. She has remained hemodynamically stable with stable labs. OBJECTIVE: VITAL SIGNS: Temperature 98.7, pulse 68, blood pressure 136/70, and 98% oxygen saturation on room air. GENERAL: No acute distress, sitting up in bed comfortably. HEART: Regular rate and rhythm. LUNGS: Clear to auscultation bilaterally. ABDOMEN: Bowel sounds hypoactive. The abdomen is soft. Some tenderness to palpation in the upper abdomen, but no guarding or rebound tenderness. EXTREMITIES: No peripheral edema. LABORATORY STUDIES: Hemoglobin 10.0, WBC 6.0, platelets 300. Sodium 136, potassium 3.2, BUN less than 4, creatinine 0.54, glucose 108. ASSESSMENT/PLAN: 1. Acute alcoholic pancreatitis, recurrent. 2. Upper abdominal pain, persistent. I advised the patient to continue to cautiously try clear liquids today. If she really feels like it exacerbates her pain and nausea, then she should again back off. I think if we are unable to make any progress with dietary advancement over the next couple of days, then repeat CT of the abdomen and pelvis would be appropriate, rule out significant fluid collection or pseudocyst. Otherwise, continue with current adequate supportive care. Job ID: [id number]
[2019-08-22] MEDS ORDERED: Potassium Chloride 20 MEQ TAB PO SCH (11:45)
[2019-08-22] MEDS: THIAMINE HCL IVPB SCH (11:48)
[2019-08-22] MEDS: FOLIC ACID IVPB SCH (11:48)
[2019-08-22] MEDS: SODIUM CHLORIDE 0.9% IVPB SCH (11:48)
--- NOTE | 2019-08-22 15:47 | PDOC.HOSPP ---
- Subjective Encounter Date: 08/22/19 Encounter Time: 15:45 Subjective: The patient tolerated soda today but yesterday she said she drank it too fast. She does not like the taste of the broth and was wondering if there was some other clear liquid she could try. She still has some abdominal pain. She reports relief with toradol, it makes her sleep She hasn't gotten the bentyl. She is passing gas, but hasn't been having bowel movements - Objective Vital Signs & Weight: Vital Signs (12 hours) Temp Pulse Resp BP Pulse Ox 08/22/19 14:58 99 F 76 16 143/92 H 99 08/22/19 11:50 98 F 80 16 127/86 08/22/19 07:25 98.7 F 68 16 136/70 98 Weight Weight 167 lb 14.4 oz Most Recent Monitor Data Heart Rate from ECG 112 NIBP 140/100 NIBP BP-Mean 113 Respiration from ECG 25 SpO2 96 I&O: 08/21/19 08/22/19 08/23/19 06:59 06:59 06:59 Intake Total 2596 1725 Balance 2596 1725 Result Diagrams: 08/22/19 04:36 08/22/19 04:36 Hospitalist ROS - Review of Systems Constitutional: denies: fever, chills Respiratory: denies: cough, dry - Medication Medications: Active Medications Generic Name Dose Route Start Last Admin Trade Name Freq PRN Reason Stop Dose Admin Bisacodyl 10 mg 08/18/19 06:50 08/20/19 16:10 Dulcolax [place] 10 mg DAILYPRN PRN Administration Constipation Enoxaparin Sodium 40 mg 08/18/19 09:00 08/22/19 08:36 Lovenox SC 40 mg 0900 ROBERT Administration Dextrose/Sodium Chloride 1,000 mls @ 100 mls/hr 08/20/19 15:15 08/22/19 05:48 D5 0.9% Ns IV 1,000 mls .Q10H ROBERT Administration Thiamine HCl 100 mg/ Folic 51.08 mls @ 100.157 mls/hr 08/22/19 12:00 11:48 Acid 0.4 mg/ Sodium Chloride IVPB 51.08 mls 1200 ROBERT Administration Ketorolac Tromethamine 15 mg 08/20/19 15:02 08/22/19 11:53 Toradol IVP 08/25/19 15:03 15 mg Q6H PRN Administration GI Cramping Labetalol HCl 20 mg 08/19/19 02:41 08/19/19 03:03 Normodyne SLOW IVP 20 mg Q4H PRN Administration HR>120 Lorazepam 1 mg 08/18/19 11:09 08/19/19 03:04 Ativan SLOW IVP 1 mg Q4H PRN Administration Anxiety/Agitation Morphine Sulfate 4 mg 08/19/19 10:34 08/22/19 15:05 Morphine SLOW IVP 4 mg Q3H PRN Administration Moderate to Severe Pain (6-10) Ondansetron HCl 4 mg 08/18/19 06:50 08/19/19 08:57 Zofran IVP 4 mg Q6H PRN Administration Nausea/Vomiting Pantoprazole Sodium 40 mg 08/20/19 09:00 08/22/19 08:36 Protonix IVP 40 mg DAILY ROBERT Administration Senna/Docusate Sodium 1 tab 08/20/19 21:00 08/22/19 08:36 Senokot S PO 1 tab BID ROBERT Administration Sodium Chloride 10 ml 08/18/19 09:00 08/22/19 10:34 Flush - Normal Saline IVF Not Given Q12HR ROBERT - Exam General Appearance: NAD, awake alert Eye: PERRL, anicteric sclera ENT: normocephalic atraumatic, no oropharyngeal lesions Neck: supple, symmetric, no JVD, no thyromegaly Heart: RRR, no murmur, no gallops, no rubs Respiratory: CTAB, no wheezes, no rales, no ronchi Gastrointestinal: soft Gastrointestinal - other findings: RUQ and LUQ tenderness Extremities: no cyanosis, no clubbing, no edema Skin: normal turgor, no lesions, no rashes Neurological: cranial nerve grossly intact, normal sensation to touch, no focal deficits, no new deficit Musculoskeletal: normal tone, normal strength Psychiatric: normal affect, normal behavior, A&O x 3, oriented to person Hosp A/P - Plan Chest X ray: no acute disease This is a 33 year old female admitted for acute alcoholic pancreatitis Acute pancreatitis secondary to alcoholism - CT showed acute pancreatitis. On morphine every 3 hours prn as needed and toradol prn and bentyl prn - continue D5NS - advised patient can get soup from outside as long as it doesn't have excessive fat/dairy. - consider repeat CT scan if no improvement tomorrow Hypokalemia -potassium 3.2. Will give 40 meq of potassium. Alcohol abuse - s/p banana bag - continue thiamine Folate deficiency - switch to 0.4 mg SC folate daily Hypertension - hold amlodipine for now Hyponatremia- resolved Dispo: d/c when tolerating diet Code status: full code
[2019-08-22 17:47] VITALS: BMI 29.7
[2019-08-23] MEDS: Morphine 4 MG/ML VIAL SLOW IVP PRN ×6 (03:07→23:46)
[2019-08-23] MEDS: Dextrose 5 % And 0.9 % NaCl 1,000 ML IV SCH ×3 (03:15→23:46)
[2019-08-23 06:00] LABS: Hemoglobin 9.8 g/dL (12.0-16.0); Mean Corpuscular HGB CONC 31.7 g/dL (32.0-36.0); Mean Corpuscular Hemoglobin 28.8 pg (27.0-31.0); Mean Corpuscular Volume 90.9 fL (78.0-98.0); Mean Platelet Volume 9.2 fL (7.4-10.4); Platelet Count 299 thou/uL (130-400); Red Blood Cell (RBC) Count 3.39 mill/uL (4.20-5.40); White Blood Cell (WBC) Count 4.4 thou/uL (4.8-10.8)
[2019-08-23 06:27] LABS: Anion Gap 9 mmol/L (10-20); BUN (Urea Nitrogen) Less than 4 mg/dL (7.0-18.7); Calc. Creatinine Clearance 170 mL/min (70-130); Calcium 9.4 mg/dL (7.8-10.44); Carbon Dioxide 28 mmol/L (22-29); Chloride 104 mmol/L (98-107); Estimated GFR-MDRD Greater than 90; Glucose 98 mg/dL (70-105); Potassium 3.3 mmol/L (3.5-5.1); Sodium 138 mmol/L (136-145)
[2019-08-23] MEDS: Enoxaparin Sodium 40 MG/0.4 ML SYRINGE SC SCH (08:13)
[2019-08-23] MEDS: Pantoprazole 40 MG VIAL IVP SCH (08:13)
[2019-08-23] MEDS: Senokot S 8.6-50 MG TAB PO SCH ×2 (08:15→20:40)
[2019-08-23] MEDS: THIAMINE HCL IVPB SCH (11:43)
[2019-08-23] MEDS: FOLIC ACID IVPB SCH (11:43)
[2019-08-23] MEDS: SODIUM CHLORIDE 0.9% IVPB SCH (11:43)
--- NOTE | 2019-08-23 12:07 | PRG ---
DATE OF SERVICE: 08/23/2019 SUBJECTIVE: Ms. Grande says she is feeling a bit better today. Abdominal pain and nausea have been last. She has been tolerating her clear liquid diet and is hoping to move on to something more substantial. OBJECTIVE: VITAL SIGNS: Temperature 98.0, pulse 59, blood pressure 140/98, and 96% oxygen saturation on room air. GENERAL: No acute distress. HEART: Regular rate and rhythm. LUNGS: Clear to auscultation bilaterally. ABDOMEN: Soft and nontender to palpation. EXTREMITIES: No peripheral edema. LABORATORY STUDIES: WBC 4.4, hemoglobin 9.8, platelets 299. Sodium 138, potassium 3.3, BUN less than 4, and creatinine 0.59. ASSESSMENT AND PLAN: 1. Acute alcoholic pancreatitis, recurrent. 2. Abdominal pain, improved a bit. We will go ahead and try to advance her diet to full liquids today. If this goes well, advance as tolerated. If her pain is worsening by this point tomorrow, we would consider repeat CT imaging of the abdomen. Job ID: [id number]
--- NOTE | 2019-08-23 13:43 | PDOC.HOSPP ---
- Subjective Encounter Date: 08/23/19 Encounter Time: 13:00 Subjective: The patient tolerated clear liquids overnight. She had a very large bowel movement per patient this morning. She is currently eating ice cream and taking it slow. She drank her soda last night too fast and caused her to have cramping in scapula area. No nausea or vomiting. - Objective Vital Signs & Weight: Vital Signs (12 hours) Temp Pulse Resp BP BP Pulse Ox 08/23/19 12:00 138/90 08/23/19 11:46 98.0 F 52 L 16 138/90 98 08/23/19 08:00 140/98 H 98 08/23/19 07:34 98.0 F 59 L 16 140/98 H 96 08/23/19 04:00 97.5 F L 55 L 15 127/74 97 Weight Weight 173 lb 4.8 oz Most Recent Monitor Data Heart Rate from ECG 112 NIBP 140/100 NIBP BP-Mean 113 Respiration from ECG 25 SpO2 96 I&O: 08/22/19 08/23/19 08/24/19 06:59 06:59 06:59 Intake Total 1725 490 400 Balance 1725 490 400 Result Diagrams: 08/23/19 05:16 08/23/19 05:16 Hospitalist ROS - Medication Medications: Active Medications Generic Name Dose Route Start Last Admin Trade Name Freq PRN Reason Stop Dose Admin Bisacodyl 10 mg 08/18/19 06:50 08/20/19 16:10 Dulcolax [place] 10 mg DAILYPRN PRN Administration Constipation Enoxaparin Sodium 40 mg 08/18/19 09:00 08/23/19 08:13 Lovenox SC 40 mg 0900 ROBERT Administration Dextrose/Sodium Chloride 1,000 mls @ 100 mls/hr 08/20/19 15:15 08/23/19 03:15 D5 0.9% Ns IV 1,000 mls .Q10H ROBERT Administration Thiamine HCl 100 mg/ Folic 51.08 mls @ 100.157 mls/hr 08/22/19 12:00 11:43 Acid 0.4 mg/ Sodium Chloride IVPB 51.08 mls 1200 ROBERT Administration Ketorolac Tromethamine 15 mg 08/20/19 15:02 08/22/19 20:21 Toradol IVP 08/25/19 15:03 15 mg Q6H PRN Administration GI Cramping Labetalol HCl 20 mg 08/19/19 02:41 08/19/19 03:03 Normodyne SLOW IVP 20 mg Q4H PRN Administration HR>120 Lorazepam 1 mg 08/18/19 11:09 08/19/19 03:04 Ativan SLOW IVP 1 mg Q4H PRN Administration Anxiety/Agitation Morphine Sulfate 4 mg 08/19/19 10:34 08/23/19 11:37 Morphine SLOW IVP 4 mg Q3H PRN Administration Moderate to Severe Pain (6-10) Ondansetron HCl 4 mg 08/18/19 06:50 08/19/19 08:57 Zofran IVP 4 mg Q6H PRN Administration Nausea/Vomiting Pantoprazole Sodium 40 mg 08/20/19 09:00 08/23/19 08:13 Protonix IVP 40 mg DAILY ROBERT Administration Senna/Docusate Sodium 1 tab 08/20/19 21:00 08/23/19 08:15 Senokot S PO Not Given BID ROBERT Sodium Chloride 10 ml 08/18/19 09:00 08/23/19 08:15 Flush - Normal Saline IVF 10 ml Q12HR ROBERT Administration - Exam General Appearance: NAD, awake alert Eye: PERRL, anicteric sclera ENT: normocephalic atraumatic, no oropharyngeal lesions Neck: supple, no JVD Heart: RRR, no murmur, no gallops, no rubs Respiratory: CTAB, no wheezes, no rales, no ronchi Gastrointestinal: soft Gastrointestinal - other findings: mild epigastric tenderness. Decreased bowel sounds Extremities: no cyanosis, no clubbing, no edema Skin: normal turgor, no lesions, no rashes Neurological: cranial nerve grossly intact, normal sensation to touch, no focal deficits, no new deficit Musculoskeletal: normal tone, normal strength, no muscle wasting Psychiatric: normal affect, normal behavior, A&O x 3, oriented to person, oriented to place, oriented to time Hosp A/P - Plan Chest X ray: no acute disease This is a 33 year old female admitted for acute alcoholic pancreatitis Acute pancreatitis secondary to alcoholism - CT showed acute pancreatitis. On morphine every 3 hours prn as needed and toradol prn and bentyl prn - continue D5NS - advance diet to full liquid. Consider CT if no improvement tomorrow per GI Hypokalemia -potassium 3.3. Will give 40 meq of potassium. Alcohol abuse - s/p banana bag - continue thiamine Folate deficiency - switch to 0.4 mg SC folate daily Hypertension - hold amlodipine for now Hyponatremia- resolved Dispo: d/c when tolerating diet Code status: full code
[2019-08-23] MEDS ORDERED: Potassium Chloride 20 MEQ TAB PO SCH (13:45)
[2019-08-23] MEDS: Ketorolac Tromethamine 30 MG/ML VIAL IVP PRN (14:29)
[2019-08-24] MEDS: Morphine 4 MG/ML VIAL SLOW IVP PRN ×6 (02:57→20:45)
[2019-08-24 07:36] LABS: Hemoglobin 10.5 g/dL (12.0-16.0); Mean Corpuscular HGB CONC 32.8 g/dL (32.0-36.0); Mean Corpuscular Hemoglobin 30.1 pg (27.0-31.0); Mean Corpuscular Volume 91.7 fL (78.0-98.0); Mean Platelet Volume 9.3 fL (7.4-10.4); Platelet Count 297 thou/uL (130-400); RBC Distribution Width 19.8 % (11.5-14.5); Red Blood Cell (RBC) Count 3.48 mill/uL (4.20-5.40); White Blood Cell (WBC) Count 5.1 thou/uL (4.8-10.8)
[2019-08-24 07:46] LABS: ALT (SGPT) 80 U/L (8-55); AST (SGOT) 41 U/L (5-34); Albumin 3.2 g/dL (3.5-5.0); Alkaline Phosphatase 142 U/L (40-110); Anion Gap 9 mmol/L (10-20); BUN (Urea Nitrogen) Less than 4 mg/dL (7.0-18.7); Bilirubin, Total 0.2 mg/dL (0.2-1.2); Calc. Creatinine Clearance 164 mL/min (70-130); Calcium 9.2 mg/dL (7.8-10.44); Carbon Dioxide 28 mmol/L (22-29); Chloride 104 mmol/L (98-107); Estimated GFR-MDRD Greater than 90; Globulin 3.4 g/dL (2.4-3.5); Glucose 95 mg/dL (70-105); Potassium 3.2 mmol/L (3.5-5.1); Protein, Total 6.6 g/dL (6.0-8.3); Sodium 138 mmol/L (136-145)
[2019-08-24] MEDS: Enoxaparin Sodium 40 MG/0.4 ML SYRINGE SC SCH (09:36)
[2019-08-24] MEDS: Pantoprazole 40 MG VIAL IVP SCH (09:36)
[2019-08-24] MEDS: Dextrose 5 % And 0.9 % NaCl 1,000 ML IV SCH ×2 (10:23→18:28)
[2019-08-24] MEDS: Senokot S 8.6-50 MG TAB PO SCH ×2 (10:23→20:52)
[2019-08-24] MEDS ORDERED: Potassium Chloride 20 MEQ TAB PO SCH (12:15)
[2019-08-24] MEDS: THIAMINE HCL IVPB SCH (12:42)
[2019-08-24] MEDS: FOLIC ACID IVPB SCH (12:42)
[2019-08-24] MEDS: SODIUM CHLORIDE 0.9% IVPB SCH (12:42)
--- NOTE | 2019-08-24 14:54 | PRG ---
DATE OF SERVICE: 08/24/2019 SUBJECTIVE: Ms. Grande is feeling a bit better today. She has been tolerating ice cream, soda, and juice. She says she is feeling a bit more hungry. She did have some nausea earlier today. OBJECTIVE: VITAL SIGNS: Temperature 98.1, pulse 67, blood pressure 117/71, 97% oxygen saturation on room air. GENERAL: No acute distress. HEART: Regular rate and rhythm. LUNGS: Clear to auscultation bilaterally. ABDOMEN: Bowel sounds are present, soft. Mild tenderness to palpation in the upper abdomen, but no guarding or rebound tenderness. EXTREMITIES: No peripheral edema. LABORATORY STUDIES: WBC 5.1, hemoglobin 10.5, platelets 297. Sodium 138, potassium 3.2, BUN is less than 4, creatinine is 0.61, total bilirubin 0.2, alkaline phosphatase 142, AST 41, ALT 80. ASSESSMENT AND PLAN: Acute alcoholic pancreatitis, recurrent. The patient has had some clinical improvement over the past couple of days, currently tolerating full liquid diet. Notably, her oral intake does not exacerbate symptoms. So, I think today, we could cautiously advance to a regular diet this evening. If she tolerates this fine, I would move toward hospital discharge in the next day or two. If symptoms worsen and she cannot tolerate this, then I would obtain abdominal CT scan tomorrow. Job ID: [id number]
[2019-08-24] MEDS: Ondansetron PF 4 MG/2 ML Vial IVP PRN (18:28)
--- NOTE | 2019-08-24 18:37 | PDOC.HOSPP ---
- Subjective Encounter Date: 08/24/19 Encounter Time: 18:34 Subjective: The patient tolerated a full liquid diet well. She has mild abdominal pain. She was advanced to regular diet. She threw up some mild hematemesis afterwards. - Objective Vital Signs & Weight: Vital Signs (12 hours) Temp Pulse Resp BP Pulse Ox 08/24/19 11:28 98.1 F 67 16 117/71 97 08/24/19 08:00 95 08/24/19 07:53 98.2 F 56 L 18 112/58 L 95 Weight Weight 173 lb 4.8 oz Most Recent Monitor Data Heart Rate from ECG 112 NIBP 140/100 NIBP BP-Mean 113 Respiration from ECG 25 SpO2 96 I&O: 08/23/19 08/24/19 08/25/19 06:59 06:59 06:59 Intake Total 490 4100 3240 Balance 490 4100 3240 Result Diagrams: 08/24/19 07:02 08/24/19 07:02 Hospitalist ROS - Medication Medications: Active Medications Generic Name Dose Route Start Last Admin Trade Name Freq PRN Reason Stop Dose Admin Bisacodyl 10 mg 08/18/19 06:50 08/20/19 16:10 Dulcolax [place] 10 mg DAILYPRN PRN Administration Constipation Enoxaparin Sodium 40 mg 08/18/19 09:00 08/24/19 09:36 Lovenox SC 40 mg 0900 ROBERT Administration Dextrose/Sodium Chloride 1,000 mls @ 100 mls/hr 08/20/19 15:15 08/24/19 18:28 D5 0.9% Ns IV 1,000 mls .Q10H ROBERT Administration Thiamine HCl 100 mg/ Folic 51.08 mls @ 100.157 mls/hr 08/22/19 12:00 12:42 Acid 0.4 mg/ Sodium Chloride IVPB 51.08 mls 1200 ROBERT Administration Ketorolac Tromethamine 15 mg 08/20/19 15:02 08/23/19 14:29 Toradol IVP 08/25/19 15:03 15 mg Q6H PRN Administration GI Cramping Labetalol HCl 20 mg 08/19/19 02:41 08/19/19 03:03 Normodyne SLOW IVP 20 mg Q4H PRN Administration HR>120 Lorazepam 1 mg 08/18/19 11:09 08/19/19 03:04 Ativan SLOW IVP 1 mg Q4H PRN Administration Anxiety/Agitation Morphine Sulfate 4 mg 08/19/19 10:34 08/24/19 16:06 Morphine SLOW IVP 4 mg Q3H PRN Administration Moderate to Severe Pain (6-10) Ondansetron HCl 4 mg 08/18/19 06:50 08/24/19 18:28 Zofran IVP 4 mg Q6H PRN Administration Nausea/Vomiting Pantoprazole Sodium 40 mg 08/20/19 09:00 08/24/19 09:36 Protonix IVP 40 mg DAILY ROBERT Administration Senna/Docusate Sodium 1 tab 08/20/19 21:00 08/24/19 10:23 Senokot S PO Not Given BID ROBERT Sodium Chloride 10 ml 08/18/19 09:00 08/24/19 09:37 Flush - Normal Saline IVF 10 ml Q12HR ROBERT Administration - Exam General Appearance: NAD, awake alert Eye: PERRL, anicteric sclera ENT: normocephalic atraumatic, no oropharyngeal lesions Neck: supple, symmetric, no JVD, no thyromegaly Heart: RRR, no murmur, no gallops, no rubs, normal peripheral pulses Respiratory: CTAB, no wheezes, no rales, no ronchi, normal chest expansion Gastrointestinal: soft, non-tender, non-distended Extremities: no cyanosis, no clubbing, no edema Skin: normal turgor, no lesions, no rashes Neurological: cranial nerve grossly intact, normal sensation to touch, no focal deficits, no new deficit Musculoskeletal: normal tone, normal strength, no muscle wasting Psychiatric: normal affect, normal behavior, A&O x 3, oriented to person Hosp A/P - Plan Chest X ray: no acute disease This is a 33 year old female admitted for acute alcoholic pancreatitis Acute pancreatitis secondary to alcoholism Mild hematemesis - CT showed acute pancreatitis. On morphine every 3 hours prn as needed and toradol prn and bentyl prn - will d/c fluid rate - diet advanced to regular diet, patient threw up some mild blood tinged emesis. Daniel recheck CBC - continue protonix Hypokalemia -potassium 3.2. Will give 40 meq of potassium. Recheck potassium Alcohol abuse - s/p banana bag - continue thiamine Folate deficiency - switch to 0.4 mg SC folate daily until tolerating po Hypertension - hold amlodipine for now Hyponatremia- resolved Dispo: d/c when tolerating diet Code status: full code
[2019-08-24 18:46] LABS: #Eosinphils 0.2 thou/uL (0.0-0.7); #Lymphocytes 2.1 thou/uL (1.20-3.40); #Monocytes 0.7 thou/uL (0.11-0.59); #Neutrophils 3.1 thou/uL (1.40-6.50); %Basophils 0.2 % (0.0-1.0); %Eosinophils 3.7 % (0.0-10.0); %Lymphocytes 34.8 % (21.0-51.0); %Monocytes 10.7 % (0.0-10.0); %Neutrophils 50.6 % (42.0-75.0); Hemoglobin 10.6 g/dL (12.0-16.0); Mean Corpuscular HGB CONC 33.6 g/dL (32.0-36.0); Mean Corpuscular Hemoglobin 30.1 pg (27.0-31.0); Mean Corpuscular Volume 89.6 fL (78.0-98.0); Mean Platelet Volume 8.9 fL (7.4-10.4); Platelet Count 306 thou/uL (130-400); RBC Distribution Width 19.6 % (11.5-14.5); Red Blood Cell (RBC) Count 3.51 mill/uL (4.20-5.40); White Blood Cell (WBC) Count 6.1 thou/uL (4.8-10.8)
[2019-08-24 19:10] LABS: Hemoglobin 10.5 g/dL (12.0-16.0); Mean Corpuscular HGB CONC 33.3 g/dL (32.0-36.0); Mean Corpuscular Volume 89.9 fL (78.0-98.0); Mean Platelet Volume 8.6 fL (7.4-10.4); Platelet Count 294 thou/uL (130-400); RBC Distribution Width 19.7 % (11.5-14.5); Red Blood Cell (RBC) Count 3.51 mill/uL (4.20-5.40); White Blood Cell (WBC) Count 5.9 thou/uL (4.8-10.8)
[2019-08-24 19:24] LABS: Potassium 3.7 mmol/L (3.5-5.1)
[2019-08-24] MEDS: Ketorolac Tromethamine 30 MG/ML VIAL IVP PRN (23:02)
[2019-08-25] MEDS: Morphine 4 MG/ML VIAL SLOW IVP PRN ×5 (00:56→20:43)
[2019-08-25] MEDS: Dextrose 5 % And 0.9 % NaCl 1,000 ML IV SCH ×2 (06:20→17:35)
[2019-08-25] MEDS: Enoxaparin Sodium 40 MG/0.4 ML SYRINGE SC SCH (08:10)
[2019-08-25] MEDS: Senokot S 8.6-50 MG TAB PO SCH ×2 (08:10→20:44)
[2019-08-25] MEDS: Ketorolac Tromethamine 30 MG/ML VIAL IVP PRN (08:10)
[2019-08-25] MEDS: Pantoprazole 40 MG VIAL IVP SCH (08:14)
[2019-08-25 11:59] LABS: Hemoglobin 10.8 g/dL (12.0-16.0); Mean Corpuscular HGB CONC 33.3 g/dL (32.0-36.0); Mean Corpuscular Hemoglobin 30.1 pg (27.0-31.0); Mean Corpuscular Volume 90.3 fL (78.0-98.0); Mean Platelet Volume 8.8 fL (7.4-10.4); Platelet Count 304 thou/uL (130-400); RBC Distribution Width 19.7 % (11.5-14.5); Red Blood Cell (RBC) Count 3.57 mill/uL (4.20-5.40)
[2019-08-25 12:28] LABS: ALT (SGPT) 58 U/L (8-55); AST (SGOT) 27 U/L (5-34); Albumin 3.3 g/dL (3.5-5.0); Alkaline Phosphatase 137 U/L (40-110); Anion Gap 10 mmol/L (10-20); BUN (Urea Nitrogen) Less than 4 mg/dL (7.0-18.7); Bilirubin, Total 0.2 mg/dL (0.2-1.2); Calc. Creatinine Clearance 159 mL/min (70-130); Calcium 9.5 mg/dL (7.8-10.44); Carbon Dioxide 27 mmol/L (22-29); Chloride 105 mmol/L (98-107); Estimated GFR-MDRD Greater than 90; Globulin 3.5 g/dL (2.4-3.5); Glucose 105 mg/dL (70-105); Iron 20 ug/dL (50-170); Iron Binding Capacity, Total 331 mcg/dL (265-497); Potassium 3.4 mmol/L (3.5-5.1); Protein, Total 6.8 g/dL (6.0-8.3); Sodium 139 mmol/L (136-145)
[2019-08-25 12:30] LABS: Iron 19 ug/dL (50-170); Iron Binding Capacity, Total 329 mcg/dL (265-497)
[2019-08-25] MEDS: FOLIC ACID IVPB SCH (13:26)
[2019-08-25] MEDS: THIAMINE HCL IVPB SCH (13:26)
[2019-08-25] MEDS: SODIUM CHLORIDE 0.9% IVPB SCH (13:26)
--- NOTE | 2019-08-25 14:13 | CT ---
CT ABDOMEN WITH AND WITHOUT IV CONTRAST CT PELVIS WITH IV CONTRAST: HISTORY: Epigastric pain, increasing LFTs, pancreatitis. COMPARISON: 08/17/2019. FINDINGS: Tiny lung nodules are stable. There are mild atelectatic changes of the lung bases. The patient is post cholecystectomy. The liver, spleen, adrenal glands, and kidneys are normal. The pancreas has a normal appearance with peripancreatic inflammatory changes. No abnormally loculat ed fluid collection is seen to suggest pseudocyst formation. No portosplenic venous thrombosis is no sharon. No pneumoperitoneum or ascites is identified. A few prominent mesenteric lymph nodes are again seen. No lymphadenopathy is identified in the abdomen or pelvis. Two calcified uterine fibroids and changes of bilateral tubal ligation are again seen. The 6 cm righ t adnexal cystic mass, likely ovarian, is again noted. The small bowel loops are not abnormally dilated. A normal-appearing appendix is seen. Osseous stru ctures are unremarkable. There is sigmoid diverticulosis. IMPRESSION: 1. No evidence of complications of pancreatitis. 2. Findings are consistent with pancreatitis. 3. Uterine fibroids. 4. Sigmoid diverticulosis. 5. A 6 cm right adnexal cystic mass, likely ovarian, should be evaluated with pelvic ultrasound in 8 -10 weeks. POS: JUDI
[2019-08-25] MEDS ORDERED: Potassium Chloride 20 MEQ TAB PO SCH (15:00)
[2019-08-25] MEDS ORDERED: Iopamidol-370 76% 500 ML 1 ML ONE (15:15)
--- NOTE | 2019-08-25 15:52 | PDOC.HOSPP ---
- Subjective Encounter Date: 08/25/19 Encounter Time: 10:30 Subjective: The patient was advanced to a regular diet last night. She states she threw it up and had some mild hematemesis. This morning patient reports severe scapular pain. She has no nausea or vomiting. Repeat CT scan is consistent with pancreatitis but no other complications. - Objective Vital Signs & Weight: Vital Signs (12 hours) Temp Pulse Resp BP Pulse Ox 08/25/19 11:40 98.1 F 57 L 18 124/79 95 08/25/19 08:20 97 08/25/19 07:39 98.0 F 59 L 16 148/82 H 97 08/25/19 04:12 98.3 F 64 15 137/84 96 Weight Admit Weight 167 lb 14.4 oz Weight 173 lb 4.8 oz Most Recent Monitor Data Heart Rate from ECG 112 NIBP 140/100 NIBP BP-Mean 113 Respiration from ECG 25 SpO2 96 I&O: 08/24/19 08/25/19 08/26/19 06:59 06:59 06:59 Intake Total 4100 4260 Balance 4100 4260 Result Diagrams: 08/25/19 11:50 08/25/19 11:50 Hospitalist ROS - Review of Systems Constitutional: denies: fever, chills - Medication Medications: Active Medications Generic Name Dose Route Start Last Admin Trade Name Freq PRN Reason Stop Dose Admin Bisacodyl 10 mg 08/18/19 06:50 08/20/19 16:10 Dulcolax LA 10 mg DAILYPRN PRN Administration Constipation Enoxaparin Sodium 40 mg 08/18/19 09:00 08/25/19 08:10 Lovenox SC 40 mg 0900 ROBERT Administration Dextrose/Sodium Chloride 1,000 mls @ 100 mls/hr 08/20/19 15:15 08/25/19 06:20 D5 0.9% Ns IV 1,000 mls .Q10H ROBERT Administration Thiamine HCl 100 mg/ Folic 51.08 mls @ 100.157 mls/hr 08/22/19 12:00 13:26 Acid 0.4 mg/ Sodium Chloride IVPB 51.08 mls 1200 ROBERT Administration Labetalol HCl 20 mg 08/19/19 02:41 08/19/19 03:03 Normodyne SLOW IVP 20 mg Q4H PRN Administration HR>120 Morphine Sulfate 4 mg 08/19/19 10:34 08/25/19 15:37 Morphine SLOW IVP 4 mg Q3H PRN Administration Moderate to Severe Pain (6-10) Ondansetron HCl 4 mg 08/18/19 06:50 08/24/19 18:28 Zofran IVP 4 mg Q6H PRN Administration Nausea/Vomiting Pantoprazole Sodium 40 mg 08/20/19 09:00 08/25/19 08:14 Protonix IVP 40 mg DAILY ROBERT Administration Potassium Chloride 40 meq 08/25/19 15:00 08/25/19 15:37 K-Dur PO 08/25/19 17:00 40 meq 1500 ROBERT Administration Senna/Docusate Sodium 1 tab 08/20/19 21:00 08/25/19 08:10 Senokot S PO 1 tab BID ROBERT Administration Sodium Chloride 10 ml 08/18/19 09:00 08/25/19 11:22 Flush - Normal Saline IVF Not Given Q12HR ROBERT - Exam General Appearance: NAD, awake alert Eye: PERRL, anicteric sclera ENT: normocephalic atraumatic, no oropharyngeal lesions Neck: supple, symmetric, no JVD, no thyromegaly Heart: RRR, no murmur, no gallops, no rubs Respiratory: CTAB, no wheezes, no rales, no ronchi Gastrointestinal: soft, non-distended Gastrointestinal - other findings: Mild flank tenderness, RUQ and LUQ tenderness present Extremities: no cyanosis, no clubbing, no edema Skin: normal turgor, no lesions, no rashes Neurological: cranial nerve grossly intact, normal sensation to touch, no focal deficits, no new deficit Musculoskeletal: normal tone, normal strength, no muscle wasting Hosp A/P - Plan Chest X ray: no acute disease This is a 33 year old female admitted for acute alcoholic pancreatitis Acute pancreatitis secondary to alcoholism Mild hematemesis Transaminitis - CT showed acute pancreatitis. On morphine every 3 hours prn as needed and toradol prn and bentyl prn - patient did not tolerate regular diet, will place back to full liquid - her liver enzymes increased yesterday and have gone back down. I have discussed with Dr. Horton, he will consider doing an EGD on her tomorow - continue protonix Hypokalemia -potassium 3.4, will replace with 40 meq of potassium Alcohol abuse - s/p banana bag - continue thiamine Folate deficiency - switch to 0.4 mg SC folate daily until tolerating po Hypertension - hold amlodipine for now Hyponatremia- resolved Dispo: d/c when tolerating diet. Possible EGD tomorrow Code status: full code
[2019-08-25] MEDS ORDERED: Iron Sucrose Complex 200 MG in Sodium Chloride 0.9% 250 ML 250 ML IVPB SCH (16:00)
--- NOTE | 2019-08-25 17:07 | PRG ---
DATE OF SERVICE: 08/25/2019 SUBJECTIVE: Ms. Grande advanced her diet last night, but through the night and this morning, she had some nausea, actually had an episode of emesis with what appeared to be blood streaks. She was made n.p.o. again. Since that time, she has been feeling better. No current nausea. Abdominal discomfort persists. Repeat CT scan showed no changes, just continued changes of pancreatitis. No complications. OBJECTIVE: VITAL SIGNS: Temperature 98.1, pulse 55, blood pressure 118/79, 95% oxygen saturation on room air. GENERAL: No acute distress. HEART: Regular rate and rhythm. LUNGS: Clear to auscultation bilaterally. ABDOMEN: Soft. Mild tenderness to palpation. EXTREMITIES: No peripheral edema. LABORATORY STUDIES: WBC 6.0, hemoglobin 10.8, platelets 304. Sodium 139, potassium 3.4, BUN less than 4, creatinine 0.63. Iron 19, TIBC 329, 6% saturation, ferritin is 22.65. Total bilirubin only 0.2, alkaline phosphatase 137, AST 27, ALT 58, albumin 3.3. CT of the abdomen and pelvis from today demonstrated continued peripancreatic inflammatory changes, but no evidence of any abnormally loculated fluid collection to suggest pseudocyst. No portal splenic venous thrombosis. No lymphadenopathy. ASSESSMENT AND PLAN: 1. Acute alcoholic pancreatitis, recurrent, now hospital day #8. 2. Epigastric abdominal pain, persistent. 3. Nausea and vomiting, persistent. 4. Hematemesis, single episode. We made the patient n.p.o. status again. Given the single episode of hematemesis, we will plan for diagnostic esophagogastroduodenoscopy tomorrow, rule out peptic ulcer disease as contributor to her persistent symptoms. If EGD is negative and she is feeling well tomorrow, try again to advance the diet. Job ID: [id number]
[2019-08-26] MEDS: Morphine 4 MG/ML VIAL SLOW IVP PRN ×3 (00:24→15:22)
[2019-08-26] MEDS: Ondansetron PF 4 MG/2 ML Vial IVP PRN (03:02)
[2019-08-26] MEDS: Dextrose 5 % And 0.9 % NaCl 1,000 ML IV SCH ×2 (05:52→14:07)
[2019-08-26] MEDS: Pantoprazole 40 MG VIAL IVP SCH (09:55)
[2019-08-26] MEDS: Enoxaparin Sodium 40 MG/0.4 ML SYRINGE SC SCH (10:06)
[2019-08-26] MEDS: Senokot S 8.6-50 MG TAB PO SCH (10:07)
[2019-08-26] MEDS ORDERED: Potassium Chloride 20 MEQ TAB PO SCH (10:30)
[2019-08-26] MEDS ORDERED: PROPOFOL 200 MG/20 ML VIAL ONE (11:59)
[2019-08-26 13:41] VITALS: BP 146/84; TEMP 97.7
[2019-08-26] MEDS: SODIUM CHLORIDE 0.9% IVPB SCH (14:06)
[2019-08-26] MEDS: FOLIC ACID IVPB SCH (14:06)
[2019-08-26] MEDS: THIAMINE HCL IVPB SCH (14:06)
--- NOTE | 2019-08-26 17:48 | OP ---
DATE OF PROCEDURE: 08/26/2019 PROCEDURE PERFORMED: Esophagogastroduodenoscopy (diagnostic). INDICATIONS FOR PROCEDURE: Hematemesis. DESCRIPTION OF PROCEDURE: After the risks and benefits of the procedure were explained to the patient including risks of bleeding, infection, perforation, reactions to anesthesia, aspiration, and/or pain, informed consent was obtained. The patient was then taken to the endoscopy suite, where she was placed in the left lateral decubitus position, followed by introduction of propofol with Anesthesia support. Once adequate sedation was achieved, the standard gastroscope was introduced into the mouth with intubation of the esophagus, stomach, and the proximal small intestines with the findings listed below. The patient tolerated the procedure well with no immediate perioperative complications. Upon conclusion of the procedure, all equipment was removed from the patient and she was transferred to PACU in satisfactory condition. FINDINGS: Esophagus: Normal-appearing mucosa was seen in the proximal, mid, and distal esophagus. There was no evidence of erosions, ulcerations, mass lesions, or active/recent bleeding. Stomach: Normal-appearing mucosa was seen in the gastric cardia, fundus, body, greater curvature, antrum, and incisura. There was no evidence of erosions, ulcerations, mass lesions, or active/recent bleeding. Duodenum: Normal-appearing mucosa was seen in both the duodenal bulb and second portion of the duodenum. There was no evidence of erosions, ulcerations, mass lesions, or active/recent bleeding. IMPRESSION: 1. Normal upper endoscopy. 2. No etiology for the patient's recent hematemesis was seen on examination today. RECOMMENDATIONS: 1. We would continue PPI in light of possible hematemesis and acid reflux. 2. Pain control per primary team. 3. We would advance the patient's diet given the negative upper endoscopy today and assess as tolerated. 4. If the patient is able to tolerate a solid diet without a significant increase in her abdominal pain, discharge to home with followup in the outpatient GI clinic could be considered. We will continue to follow. Please call with any questions. Job ID: [id number]
--- NOTE | 2019-08-28 21:51 | DIS ---
DATE OF ADMISSION: 08/17/2019 DATE OF DISCHARGE: 08/26/2019 DISCHARGE DIAGNOSES: Acute pancreatitis secondary to alcoholism, transaminitis, mild hematemesis, hypokalemia, folate deficiency, hyponatremia, uterine fibroid, ovarian follicle/cyst. CONSULTATIONS: Gastroenterology with Dr. Moises Horton. PROCEDURE PERFORMED: Upper endoscopy on 08/26. BRIEF HISTORY OF PRESENT ILLNESS: This is a 33-year-old female with past medical history of hypertension, who presented to the emergency room with abdominal pain and vomiting after binge drinking. The patient reported epigastric pain radiating to her back. Her lipase on admission was 253, which increased to 971. She had a CT scan of her abdomen in the ER, which was consistent with acute pancreatitis. The patient was admitted to the floor for IV fluids and pain management. Acute pancreatitis: The patient was treated with IV fluids and narcotics as needed. She was very slow to progress to a solid diet due to persistent pain. On 08/25, she was eventually advanced to a regular diet, however, developed some vomiting and hematemesis. GI performed an upper endoscopy on her today, which was unremarkable. After the endoscopy, the patient had a regular diet and tolerated it without any nausea or vomiting. She was therefore discharged home and will follow up with the PCP in a week. She was given a prescription for ibuprofen as needed for pain. The patient's liver enzymes were slightly elevated on the with an ALT of 58 and alkaline phosphatase of 137. Her AST was normal at 27. It is unclear why it went up during her hospitalization and downtrended again. These numbers can be repeated as an outpatient. Hypokalemia: The patient was noted to have a potassium of 3.4 on 08/25. This was replaced with supplementation. The patient was advised to eat more bananas and have her potassium repeated as an outpatient. Folate deficiency anemia: The patient was noted to be anemic with a hemoglobin of 10.8. Her folate levels were checked and were low at 4.5. She was started on folic acid 1 mg daily. She should have her CBC rechecked as an outpatient. Possible iron deficiency: The patient was noted to be anemic and had iron levels checked which showed a ferritin of 22.6 and iron saturation of 6. She received one dose of IV iron on the . The patient does give a history of having two or three periods a month; therefore, she was discharged on iron supplementation 325 mg p.o. b.i.d. and was given senna for constipation p.r.n. Hypertension: The patient was resumed on her amlodipine on discharge. Hyponatremia: The patient had a sodium of 135 on admission, which improved to 139 on 08/25. Uterine fibroids/ovarian cyst: The patient had a CT scan of her abdomen repeated on the due to persistent pain, which showed a 6 cm right adnexal cystic mass and a uterine fibroid. The patient was told that she should have a pelvic ultrasound done for further evaluation. This should be repeated within 8 to 10 weeks. The patient does give a history of having multiple periods a month. 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 Alcoholism: The patient was advised to refrain from drinking alcohol. She was prescribed thiamine and folic acid as a prophylaxis. DISCHARGE PHYSICAL EXAMINATION: VITAL SIGNS: Temperature 97.7, heart rate 56, respiratory rate 18, O2 saturation 98% on room air, blood pressure 146/84. GENERAL: The patient is alert, awake, oriented x3. CVS: Regular rate and rhythm with no murmurs, rubs, or gallops. LUNGS: Clear to auscultation bilaterally. ABDOMEN: The patient is obese with positive bowel sounds. She has some mild epigastric tenderness. No distention. EXTREMITIES: No edema. PERTINENT LABORATORY DATA: CBC on 08/25; white blood cell count is normal, hemoglobin 10.8, hematocrit 32.3, platelet count is 304. BMP on 08/25; potassium was 3.4. Rest of BMP is normal. LFTs on 08/25; AST 27, ALT 58, alkaline phosphatase is 137. Iron panel; ferritin 22.65, iron saturation is 6%, iron is 19, TIBC is 329. Vitamin B12 is 409. Folate is 4.50, which is low. TSH was less than 0.025. Serum test was negative. Lipid panel; LDL was 62, HDL is 45, total cholesterol is 127, triglyceride was 98. PERTINENT IMAGING STUDIES: CT of abdomen on 08/17, shows 2 calcified uterine fibroids. A 4.9 cm cystic structure in the adnexa representing an ovarian follicle/cyst. Findings of acute pancreatitis. Chest x-ray on 08/18/2019, no acute disease. CT of abdomen and pelvis on 08/25/2019, no evidence of complications of pancreatitis. Findings are consistent with acute pancreatitis. Uterine fibroids and a 6 cm right adnexal cystic mass, which should be followed up with pelvic ultrasound in 8-10 weeks. EGD shows normal upper endoscopy. DISCHARGE CONDITION: Stable. ACTIVITY: As tolerated. DIET RESTRICTION: The patient should consider a low-fat diet if she does not tolerate a regular diet. DISCHARGE MEDICATIONS: New medications: 1. Ferrous sulfate 325 mg p.o. b.i.d. 2. Folic acid 1 mg p.o. daily. 3. Senna 8.6 mg p.o. at bedtime p.r.n. 4. Thiamine 100 mg p.o. daily. 5. Ibuprofen 600 mg p.o. q.6 hours p.r.n. Continue amlodipine 5 mg daily for hypertension. DISCHARGE INSTRUCTIONS: The patient should follow up with PCP in a week; however, CBC repeated and her iron tests rechecked. She should follow up with a director utilization management for evaluation of ovarian cyst and uterine fibroids and consider pelvic ultrasound in 8 to 10 weeks. She should also have her potassium levels rechecked and refrain from drinking alcohol. Job ID: [id number]
== END 2019-08-26 17:31 | disposition home or self-care (01) | DRG 439 ==
LOC: ERS 19:52 → 2SW 21:30 → OBSVTOIN 21:30 → T4-B 08-18 09:01 → IMCU/EMU 08-18 23:57 → 2NO 08-19 20:13 → T4-B 08-22 17:04
PROVIDERS: ADMIT Internal Medicine; ATTEND Internal Medicine
PROC: 0DJ08ZZ Inspection of Upper Intestinal Tract, Via Natural or Artificial Opening Endoscopic (ICD-10-PCS; principal; 2019-08-26)
DX: K85.20 Alcohol induced acute pancreatitis without necrosis or infection (principal); F10.188 Alcohol abuse with other alcohol-induced disorder; E87.1 Hypo-osmolality and hyponatremia; K92.0 Hematemesis; D25.9 Leiomyoma of uterus, unspecified; E87.6 Hypokalemia; D52.9 Folate deficiency anemia, unspecified; K21.9 Gastro-esophageal reflux disease without esophagitis; Z90.49 Acquired absence of other specified parts of digestive tract; D69.6 Thrombocytopenia, unspecified; I10 Essential (primary) hypertension; D50.9 Iron deficiency anemia, unspecified
CPT/HCPCS: 36415; 36416; 71045; 74177; 74178; 80048; 80053; 80061; 80307; 82607; 82728; 82746; 83540; 83550; 83605; 83615; 83690; 83735; 84443; 84484; 84703; 85025; 85027; 85379; 86140; 90471; 90686; 90732; 93005; 93010; 96361; 96374; 96375; 96376; C9113; G0008; G0009; J1650; J1756; J1885; J2060; J2270; J2405; J2704; J3010; J3411; J3480; J7050; Q9966; Q9967

== ENCOUNTER 2020-06-05 09:20 | Emergency (ER) | payer SELFPAY ==
[~2020-06-05 09:20] MED LIST changes: -ISOVUE-370 76%-LOCM 1 ML ONE; +Iopamidol-370 76% 500 ML 1 ML ONE
[2020-06-05] MEDS ORDERED: Morphine 4 MG/ML VIAL ONE (09:48)
[2020-06-05] MEDS ORDERED: Ondansetron PF 4 MG/2 ML Vial ONE (09:48)
[2020-06-05 09:58] LABS: #Lymphocytes 1.5 thou/uL (1.20-3.40); #Monocytes 0.7 thou/uL (0.11-0.59); #Neutrophils 8.4 thou/uL (1.40-6.50); %Basophils 0.1 % (0.0-1.0); %Eosinophils 0.3 % (0.0-10.0); %Monocytes 6.3 % (0.0-10.0); %Neutrophils 79.3 % (42.0-75.0); Hemoglobin 11.1 g/dL (12.0-16.0); Mean Corpuscular HGB CONC 33.3 g/dL (32.0-36.0); Mean Corpuscular Hemoglobin 28.4 pg (27.0-31.0); Mean Corpuscular Volume 85.4 fL (78.0-98.0); Mean Platelet Volume 8.7 fL (7.4-10.4); Platelet Count 300 thou/uL (130-400); RBC Distribution Width 15.8 % (11.5-14.5); White Blood Cell (WBC) Count 10.6 thou/uL (4.8-10.8)
[2020-06-05 09:58] LABS: Bacteria/HPF 4+ HPF (None Seen); Bilirubin Negative (Negative); Blood, Urine 2+ (Negative); Clarity Turbid (Clear); Glucose, Urine (Dipstick) Normal (Negative); Ketone, Urine Negative (Negative); Leukocyte 500 Leu/uL (Negative); Nitrite 2+ (Negative); Protein, Urine (Dipstick) 20 mg/dL (Neg-Trace); Specific Gravity, Urine 1.013 (1.002-1.036); Squamous Epithelial 0-3 HPF (0-3); Urobilinogen Normal mg/dL (Less than 2); WBC/HPF Greater than 50 HPF (0-3)
[2020-06-05 09:59] LABS: Pregnancy Test - Urine (BHCG) Negative (Negative); Pregu Control Background? CLEAR/WHITE (CLR/WHITE); Pregu Control Bar Appear? YES (CONTROL BAR); Specific Gravity 1.013 (1.002-1.036)
[2020-06-05 10:08] LABS: ALT (SGPT) 66 U/L (8-55); AST (SGOT) 53 U/L (5-34); Albumin 3.7 g/dL (3.5-5.0); Alkaline Phosphatase 137 U/L (40-110); Anion Gap 12 mmol/L (10-20); BUN (Urea Nitrogen) 5 mg/dL (7.0-18.7); Bilirubin, Total 0.5 mg/dL (0.2-1.2); Calc. Creatinine Clearance 0 mL/min (70-130); Calcium 8.9 mg/dL (7.8-10.44); Carbon Dioxide 21 mmol/L (22-29); Chloride 102 mmol/L (98-107); Estimated GFR-MDRD Greater than 90; Globulin 3.9 g/dL (2.4-3.5); Glucose 109 mg/dL (70-105); Lipase 11 U/L (8-78); Potassium 3.4 mmol/L (3.5-5.1); Protein, Total 7.6 g/dL (6.0-8.3); Sodium 132 mmol/L (136-145)
--- NOTE | 2020-06-05 10:45 | CT ---
CT Abdomen Pelvis W Con History: Left-sided abdominal pain Comparison: CT abdomen and pelvis August 2019 Findings: Mild atelectasis within the lung bases. No significant pericardial effusion. Prior cholecys tectomy. Mild inflammatory stranding along the left kidney. Small adjacent inflamed left perinephric lymph nod es. No hydroureteronephrosis. No nephroureterolithiasis. Multiple calcified pedunculated subserosal uterine fibroids. The appendix is visualized and is normal . No dilated loops of large or small bowel. The spleen and pancreas as well as the liver are unremarkable. Aortic contour is normal. Impression: 1. Uncomplicated left pyelonephritis. 2. No hydroureteronephrosis. No renal calculi. 3. Result previously described pancreatitis. 4. Pedunculated peripherally calcified subserosal uterine fibroids.
[2020-06-05] MEDS ORDERED: cefTRIAXone\\ROCEPHIN 1 GM VIAL ONE (10:47)
== END 2020-06-05 11:30 | disposition home or self-care (01) ==
LOC: ERS 09:20
DX: N12 Tubulo-interstitial nephritis, not specified as acute or chronic (principal); R74.0 Nonspecific elevation of levels of transaminase and lactic acid dehydrogenase [LDH]; I10 Essential (primary) hypertension; F17.210 Nicotine dependence, cigarettes, uncomplicated; Z79.899 Other long term (current) drug therapy
CPT/HCPCS: 36415; 74177; 80053; 81003; 81015; 81025; 83690; 85025; 87077; 87086; 87186; 93005; 96361; 96365; 96375; J0696; J2270; J2405; Q9967

== ENCOUNTER 2020-08-09 08:29 | Emergency (ER) | payer SELFPAY ==
[2020-08-09] MEDS ORDERED: Ketorolac Tromethamine 30 MG/ML VIAL ONE (10:48)
[2020-08-09] MEDS ORDERED: Ondansetron PF 4 MG/2 ML Vial ONE (10:48)
[2020-08-09 11:09] LABS: #Eosinphils 0.2 thou/uL (0.0-0.7); #Lymphocytes 2.8 thou/uL (1.20-3.40); #Monocytes 0.6 thou/uL (0.11-0.59); #Neutrophils 10.1 thou/uL (1.40-6.50); %Basophils 0.3 % (0.0-1.0); %Eosinophils 1.4 % (0.0-10.0); %Lymphocytes 20.6 % (21.0-51.0); %Monocytes 4.6 % (0.0-10.0); %Neutrophils 73.1 % (42.0-75.0); Hemoglobin 11.4 g/dL (12.0-16.0); Mean Corpuscular Hemoglobin 26.9 pg (27.0-31.0); Mean Corpuscular Volume 81.5 fL (78.0-98.0); Mean Platelet Volume 8.5 fL (7.4-10.4); Platelet Count 536 thou/uL (130-400); RBC Distribution Width 18.4 % (11.5-14.5); Red Blood Cell (RBC) Count 4.23 mill/uL (4.20-5.40); White Blood Cell (WBC) Count 13.8 thou/uL (4.8-10.8)
--- NOTE | 2020-08-09 11:14 | RAD ---
Chest AP view INDICATION: Chest pain with facial swelling COMPARISON: Prior exam dated August 28, 2019 FINDINGS: Lungs: There is hazy airspace opacity involving the right lung base. Left lung is clear. Cardiac silhouette: The cardiomediastinal silhouette appears within normal limits. Pulmonary vasculature: Normal Pleural spaces: No pleural effusion or pneumothorax is demonstrated. Upper abdomen: No abnormality seen. Osseous structures: No acute osseous abnormality. Additional findings: None. IMPRESSION: New hazy airspace opacity on the right lung base may reflect a developing pneumonia. Two-view chest r adiograph is recommended for additional evaluation.
[2020-08-09 11:33] LABS: ALT (SGPT) 19 U/L (8-55); AST (SGOT) 20 U/L (5-34); Albumin 4.3 g/dL (3.5-5.0); Alkaline Phosphatase 145 U/L (40-110); Anion Gap 13 mmol/L (10-20); BUN (Urea Nitrogen) 4 mg/dL (7.0-18.7); Bilirubin, Total 0.3 mg/dL (0.2-1.2); Calc. Creatinine Clearance 0 mL/min (70-130); Calcium 9.7 mg/dL (7.8-10.44); Carbon Dioxide 25 mmol/L (22-29); Estimated GFR-MDRD Greater than 90; Globulin 4.5 g/dL (2.4-3.5); Glucose 118 mg/dL (70-105); Potassium 3.1 mmol/L (3.5-5.1); Protein, Total 8.8 g/dL (6.0-8.3); Sodium 135 mmol/L (136-145)
[2020-08-09 11:54] LABS: Chloride 100 mmol/L (98-107)
== END 2020-08-09 13:03 | disposition home or self-care (01) ==
LOC: ERS 08:29
DX: K08.89 Other specified disorders of teeth and supporting structures (principal); R91.8 Other nonspecific abnormal finding of lung field; I10 Essential (primary) hypertension; F41.9 Anxiety disorder, unspecified; F17.210 Nicotine dependence, cigarettes, uncomplicated
CPT/HCPCS: 71045; 80053; 84484; 85025; 93005; 96374; 96375; J1885; J2405

== ENCOUNTER 2020-11-01 04:59 | Inpatient (IN) | payer SELFPAY ==
[2020-11-01] MEDS ORDERED: Morphine 4 MG/ML VIAL ONE (05:11)
[2020-11-01 05:53] LABS: BHCG - Serum Negative (NEGATIVE); Pregs Control Background? CLEAR/WHITE (CLR/WHITE); Pregs Control Bar Appear? YES (CONTROL BAR)
[2020-11-01 05:55] LABS: ALT (SGPT) 25 U/L (8-55); AST (SGOT) 21 U/L (5-34); Albumin 3.7 g/dL (3.5-5.0); Alkaline Phosphatase 144 U/L (40-110); Anion Gap 12 mmol/L (10-20); BUN (Urea Nitrogen) 7 mg/dL (7.0-18.7); Bilirubin, Total 0.5 mg/dL (0.2-1.2); Calc. Creatinine Clearance 0 mL/min (70-130); Carbon Dioxide 24 mmol/L (22-29); Chloride 102 mmol/L (98-107); Globulin 3.9 g/dL (2.4-3.5); Glucose 112 mg/dL (70-105); Lipase 135 U/L (8-78); Protein, Total 7.6 g/dL (6.0-8.3); Sodium 135 mmol/L (136-145)
[2020-11-01 05:59] LABS: Potassium 2.9 mmol/L (3.5-5.1)
[2020-11-01] MEDS ORDERED: Pot Chloride/Pot Bicarb/Cit Ac 25 mEq Effervescent Tablet ONE (06:07)
[2020-11-01 06:34] LABS: #Basophils 0.1 thou/uL (0.0-0.2); #Eosinphils 0.3 thou/uL (0.0-0.7); #Lymphocytes 1.8 thou/uL (1.20-3.40); #Monocytes 0.4 thou/uL (0.11-0.59); #Neutrophils 6.1 thou/uL (1.40-6.50); %Basophils 0.6 % (0.0-1.0); %Eosinophils 3.6 % (0.0-10.0); %Lymphocytes 20.8 % (21.0-51.0); %Monocytes 4.2 % (0.0-10.0); %Neutrophils 70.9 % (42.0-75.0); Hemoglobin 10.2 g/dL (12.0-16.0); Mean Corpuscular HGB CONC 32.3 g/dL (32.0-36.0); Mean Corpuscular Hemoglobin 27.4 pg (27.0-31.0); Mean Corpuscular Volume 84.7 fL (78.0-98.0); Mean Platelet Volume 8.8 fL (7.4-10.4); Platelet Count 479 thou/uL (130-400); Red Blood Cell (RBC) Count 3.74 mill/uL (4.20-5.40); White Blood Cell (WBC) Count 8.6 thou/uL (4.8-10.8)
[2020-11-01 07:22] LABS: Anisocytosis MODERATE=16-30 cells (100X) (0-5/hpf); MDiff Complete? YES; Platelet Morphology Comment Appears Increased; Polychromasia MODERATE = 3-4 cells (100X) (0-2/hpf)
[2020-11-01] MEDS ORDERED: Acetaminophen 325 MG TAB PO PRN (07:45)
[2020-11-01] MEDS ORDERED: Acetaminophen 650 MG Suppository PR PRN (07:45)
[2020-11-01] MEDS ORDERED: Ondansetron ODT 4 MG TAB PO PRN (07:45)
[2020-11-01] MEDS ORDERED: Morphine 2 MG/ML VIAL ONE (07:55)
--- NOTE | 2020-11-01 07:57 | PDOC.HHP ---
Hospitalist HPI - History of Present Illness Abdominal pain History of Present Illness: Ms. Grande is a 34-year-old female with past medical history of pancreatitis, hypertension, uterine fibroids, alcohol use who presents to the emergency room for acute onset of abdominal pain. Patient reports her pain began approximately 36 hours prior to admission and has been constant. Patient describes pain as s evere epigastric radiating to her back. She reports it feels similar to her prior episodes of pancreatitis. Patient does endorse using a large amount of alcohol to celebrate a recent job promotion which she feels set off her abdominal pain. Patient also endorses severe nausea, a few episodes of v omiting. She is unable to tolerate any food or liquid p.o. She denies fever, night sweats, chills. She denies chest pain or shortness of breath. She denies pelvic pain or urinary symptoms. Patient's prior episodes of pancreatitis thought to be caused by alcohol use and additionally another episode caused by a gallstone. Patient has undergone a cholecystectomy. In emergency room initial vital signs 129/86, 82, 18, 98.0, 100% on room air. Lipase 135, H/H 10.2/31.7. WBC 8.6. Platelets 479. BUN/CR 7/0.68, sodium 135, potassium 2.9, glucose 112. AST/ALT 21/25. T-clarence 0.5. Alk phos 144. Beta hCG was negative. ER attempted p.o. challenge which patient failed in the house she is admitted to the hospitalist service. Hospitalist ROS - Review of Systems Constitutional: denies: fever, chills, sweats, weakness, malaise, other Eyes: denies: pain, vision change, conjunctivae inflammation, eyelid i nflammation, redness, other ENT: denies: ear pain, ear discharge, nose pain, nose discharge, nose congestion, mouth pain, mouth swelling, throat pain, throat swelling, other Respiratory: denies: cough, dry, shortness of breath, hemoptysis, SOB with e xcertion, pleuritic pain, sputum, wheezing, other Cardiovascular: denies: chest pain, palpitations, orthopnea, paroxysmal noc. dyspnea, edema, light headedness, other Gastrointestinal: reports: nausea, vomiting, abdominal pain. denies: diarrhea, constipation, melena, hematochezia, other Genitourinary: denies: dysuria, frequency, incontinence, hematuria, retention, other Musculoskeletal: denies: neck pain, shoulder pain, arm pain, back pain, hand pain, leg pain, foot pain, other Skin: denies: rash, lesions, maria de jesus, bruising, other Neurological: denies: weakness, numbness, incoordination, change in speech, confusion, seizures, other - Medication Medications: Home medications include Amlodipine No known drug allergies Hospitalist History - Past Medical History Other Medical History: Past medical history includes Pancreatitis Hypertension Uterine fibroids Status post cholecystectomy Alcohol use - Past Surgical History Other Surgical History: Cholecystectomy - Social History Smoking Status: Current every day smoker (1/2 pack/day) Tobacco Type: chewing tobacco Alcohol: reports: Heavy (Patient uses alcohol more than 5 times a week) - Exam General Appearance: NAD, awake alert Eye: PERRL, anicteric sclera ENT: normocephalic atraumatic, no oropharyngeal lesions, moist mucosa Neck: supple, symmetric, no JVD, no thyromegaly, no lymphadenopathy, no carotid bruit Heart: RRR, no murmur, no gallops, no rubs, normal peripheral pulses Respiratory: CTAB, no wheezes, no rales, no ronchi, normal chest expansion, no tachypnea, normal percussion Gastrointestinal: soft, normal bowel sounds, no guarding, no rigidity, tender to palpation Extremities: no cyanosis, no clubbing, no edema Skin: normal turgor, no lesions, no rashes Neurological: cranial nerve grossly intact, normal sensation to touch, no weakness, no focal deficits, no new deficit Musculoskeletal: normal tone, normal strength, no muscle wasting Psychiatric: normal affect, normal behavior, A&O x 3 Hospitalist Results - Labs Result Diagrams: 11/01/20 05:27 11/01/20 05:27 Lab results: WBC 8.6 thou/uL (4.8-10.8) 11/01/20 05:27 Hgb 10.2 g/dL (12.0-16.0) L 11/01/20 05:27 Hct 31.7 % (36.0-47.0) L 11/01/20 05:27 MCV 84.7 fL (78.0-98.0) 11/01/20 05:27 Plt Count 479 thou/uL (130-400) H 11/01/20 05:27 Neutrophils % 70.9 % (42.0-75.0) 11/01/20 05:27 Sodium 135 mmol/L (136-145) L 11/01/20 05:27 Potassium 2.9 mmol/L (3.5-5.1) L* 11/01/20 05:27 Chloride 102 mmol/L (98-107) 11/01/20 05:27 Carbon Dioxide 24 mmol/L (22-29) 11/01/20 05:27 BUN 7 mg/dL (7.0-18.7) 11/01/20 05:27 Creatinine 0.68 mg/dL (0.6-1.1) 11/01/20 05:27 Glucose 112 mg/dL (70-105) H 11/01/20 05:27 Calcium 9.0 mg/dL (7.8-10.44) 11/01/20 05:27 Total Bilirubin 0.5 mg/dL (0.2-1.2) 11/01/20 05:27 AST 21 U/L (5-34) 11/01/20 05:27 ALT 25 U/L (8-55) 11/01/20 05:27 Alkaline Phosphatase 144 U/L (40-110) H 11/01/20 05:27 Serum Total Protein 7.6 g/dL (6.0-8.3) 11/01/20 05:27 Albumin 3.7 g/dL (3.5-5.0) 11/01/20 05:27 Lipase 135 U/L (8-78) H 11/01/20 05:27 Hospitalist H&P A/P - Plan Plan: Acute on chronic pancreatitis Patient with history of prior pancreatitis episodes due to alcohol and gallstone, S/p patricio, who presents with severe epigastric abdominal pain ra diating to her back along with nausea and p.o. intolerance. Lipase mildly elevated to 135. WBC 8.6. Patient afebrile. Patient endorses recent alcohol binge prior to episode. Patient failed p.o. challenge in emergency room. Patient has had multiple CT scans in the past. I will hold off on rescanning and instead obtain an ultrasound to avoid unnecessary radiation unless patient's clinical course worsens. Will start aggressive IV fluids, manage pain and bowel rest. Plan Abdominal ultrasound IV fluids at 200 cc/h N.p.o., may transition to clears Serial abdominal exams Pain control with morphine Hypokalemia Potassium low at 2.9 on admission. ER repleted with p.o., however patient was unable to tolerate and vomited. Will replete IV and continue to monitor. EtOH use Patient with a history of alcohol use and prior episodes of pancreatitis. Patient reports nearly daily alcohol use. She usually drinks wine coolers and finds that those do not aggravate her pancreatitis symptoms, but that hard liquor which he binged on prior to admission she is unable to tolerate. Patient denies any history of seizures or prior admissions for alcohol withdrawal. Will place patient on ASE protocol and monitor for withdrawal symptoms. Plan ASE protocol Magnesium, vitamin B12, folate Hypertension Patient with history of hypertension on home amlodipine. Patient normotensive in emergency room. Will hold home medication and restart as needed. Uterine fibroids History of uterine fibroids which was identified on last admission. Patient endorses heavy periods and reports that she has not yet had a chance to follow- up with her financial planning consultant. She currently denies pelvic pain, urinary symptoms or any changes in her menstrual pattern. Beta hCG negative. Encouraged patient to seek gynecological evaluation as an outpatient. DVT prophylaxisLovenox Full code Case discussed with attending physician, Dr. Kennedy.
[2020-11-01] MEDS ORDERED: Potassium Phosphate 30 MMOL in Sodium Chloride 0.9% 250 ML 250 ML IVPB SCH (08:45)
--- NOTE | 2020-11-01 09:23 | ULT ---
EXAM: US Abdominal CLINICAL HISTORY: Abdominal pain. Past medical history of pancreatitis. COMPARISON: None. FINDINGS: Pancreas: Obscured by bowel gas IVC: Visualized IVC has a normal caliber. Aorta: Visualized aorta has a normal caliber. Liver:Dense echotexture which may be due to hepatic steatosis or hepatocellular disease. Subsequent l imited evaluation for hepatic masses and intrahepatic biliary dilatation. Right hepatic lobe measures 14.7 cm Gallbladder: Surgically absent Bray's sign:Not applicable CBD: 0.4 cm common bile duct diameter Portal vein: Patent. Appropriate directional flow. Right kidney: Normal cortical echotexture. No hydronephrosis Right kidney measuring 3.8 x 5.1 x 11. 2 cm in length. Left kidney: Limited evaluation due to shadowing. No obvious cortical masses. No obvious hydronephros is. Left kidney measuring 5.0 x 5.8 x 11.8 cm in length Spleen: Normal echotexture, measuring 9.1 cm IMPRESSION: 1. Nonvisualization the pancreas 2. Surgically absent gallbladder 3. Increased echogenicity of the liver which may be due to hepatic steatosis or hepatocellular diseas e. Comparison from a CT from 06/05/2020 favors hepatocellular disease given the lack of hypoattenuation of the liver.
[2020-11-01] MEDS: Morphine 2 MG/ML VIAL SLOW IVP PRN ×3 (10:02→15:42)
[2020-11-01] MEDS: Enoxaparin Sodium 40 MG/0.4 ML SYRINGE SC SCH (10:02)
[2020-11-01 10:05] VITALS: BMI 35.4
[2020-11-01] MEDS: Potassium Chloride 20 MEQ in Lactated Ringer's 1,000 ML IV SCH ×3 (12:14→18:54)
[2020-11-01 16:14] LABS: Anion Gap 13 mmol/L (10-20); BUN (Urea Nitrogen) 4 mg/dL (7.0-18.7); Calc. Creatinine Clearance 174 mL/min (70-130); Calcium 9.2 mg/dL (7.8-10.44); Carbon Dioxide 25 mmol/L (22-29); Chloride 103 mmol/L (98-107); Glucose 94 mg/dL (70-105); Potassium 3.5 mmol/L (3.5-5.1); Sodium 137 mmol/L (136-145)
[2020-11-01] MEDS ORDERED: Ibuprofen 800 MG TAB PO PRN (18:25)
[2020-11-01] MEDS: Morphine 4 MG/ML VIAL SLOW IVP PRN (19:41)
[2020-11-02] MEDS: Morphine 4 MG/ML VIAL SLOW IVP PRN ×7 (00:02→23:24)
[2020-11-02] MEDS: Potassium Chloride 20 MEQ in Lactated Ringer's 1,000 ML IV SCH ×3 (02:24→23:12)
[2020-11-02] MEDS ORDERED: Ketorolac Tromethamine 30 MG/ML VIAL IVP SCH (02:45)
[2020-11-02 06:00] LABS: #Eosinphils 0.3 thou/uL (0.0-0.7); #Lymphocytes 2.3 thou/uL (1.20-3.40); #Monocytes 0.3 thou/uL (0.11-0.59); %Basophils 0.6 % (0.0-1.0); %Eosinophils 3.5 % (0.0-10.0); %Lymphocytes 28.9 % (21.0-51.0); %Monocytes 3.2 % (0.0-10.0); %Neutrophils 63.7 % (42.0-75.0); Hemoglobin 9.7 g/dL (12.0-16.0); Mean Corpuscular HGB CONC 31.9 g/dL (32.0-36.0); Mean Corpuscular Hemoglobin 27.6 pg (27.0-31.0); Mean Corpuscular Volume 86.4 fL (78.0-98.0); Mean Platelet Volume 8.6 fL (7.4-10.4); Platelet Count 443 thou/uL (130-400); RBC Distribution Width 26.6 % (11.5-14.5); Red Blood Cell (RBC) Count 3.53 mill/uL (4.20-5.40); White Blood Cell (WBC) Count 7.9 thou/uL (4.8-10.8)
[2020-11-02 06:17] LABS: Anion Gap 11 mmol/L (10-20); BUN (Urea Nitrogen) 4 mg/dL (7.0-18.7); Calc. Creatinine Clearance 182 mL/min (70-130); Calcium 8.9 mg/dL (7.8-10.44); Carbon Dioxide 26 mmol/L (22-29); Chloride 102 mmol/L (98-107); Glucose 83 mg/dL (70-105); Potassium 3.5 mmol/L (3.5-5.1); Sodium 135 mmol/L (136-145)
[2020-11-02] MEDS: Ondansetron PF 4 MG/2 ML Vial IVP PRN (07:48)
[2020-11-02] MEDS: Enoxaparin Sodium 40 MG/0.4 ML SYRINGE SC SCH (07:48)
--- NOTE | 2020-11-02 10:35 | PDOC.HOSPP ---
- Subjective Encounter Date: 11/02/20 Encounter Time: 10:33 Subjective: No overnight events. Patient reports her abdominal pain has worsened this am. Continues to have N/V. Deneis fever, chills. Denies CP or SOB. Still unable to tolerate anything PO. Patient also endorses tooth pain to her L upper molar and feels as though her cheek is swollen on that side. Chart and medications reviewed. - Objective Vital Signs & Weight: Vital Signs (12 hours) Temp Pulse Resp BP Pulse Ox 11/02/20 08:04 98.5 F 93 20 126/79 98 11/02/20 04:27 98.3 F 75 18 111/71 97 11/02/20 00:03 97.8 F 72 14 115/79 98 Weight Weight 200 lb I&O: 11/01/20 11/02/20 11/03/20 06:59 06:59 06:59 Intake Total 3300 Balance 3300 Result Diagrams: 11/02/20 04:43 11/02/20 04:43 Hospitalist ROS - Review of Systems Constitutional: denies: fever, chills, sweats, weakness, malaise, other Eyes: denies: pain, vision change, conjunctivae inflammation, eyelid inflammation, redness, other ENT: reports: mouth pain, mouth swelling Respiratory: denies: cough, dry, shortness of breath, hemoptysis, SOB with excertion, pleuritic pain, sputum, wheezing, other Cardiovascular: denies: chest pain, palpitations, orthopnea, paroxysmal noc. dyspnea, edema, light headedness, other Gastrointestinal: reports: nausea, vomiting, abdominal pain. denies: diarrhea, constipation, melena, hematochezia, other Genitourinary: denies: dysuria, frequency, incontinence, hematuria, retention, other Musculoskeletal: denies: neck pain, shoulder pain, arm pain, back pain, hand pain, leg pain, foot pain, other Skin: denies: rash, lesions, maria de jesus, bruising, other Neurological: denies: weakness, numbness, incoordination, change in speech, confusion, seizures, other - Medication Medications: Active Medications Generic Name Dose Route Start Last Admin Trade Name Freq PRN Reason Stop Dose Admin Enoxaparin Sodium 40 mg 11/01/20 09:00 11/02/20 07:48 Enoxaparin Sodium 40 Mg/0.4 Ml Syringe SC 40 mg 0900 ROBERT Administration Potassium Chloride 20 meq/ 1,010 mls @ 150 mls/hr 11/01/20 08:45 11/02/20 02:24 Lactated Ringer's IV 1,010 mls .[id number] ROBERT Administration Morphine Sulfate 4 mg 11/01/20 18:24 11/02/20 07:48 Morphine 4 Mg/Ml Vial SLOW IVP 4 mg Q4H PRN Administration Severe Pain (7-10) Ondansetron HCl 4 mg 11/01/20 07:45 11/02/20 07:48 Ondansetron Pf 4 Mg/2 Ml Vial IVP 4 mg Q6H PRN Administration Nausea/Vomiting - Exam General Appearance: NAD, awake alert Eye: PERRL, anicteric sclera ENT: normocephalic atraumatic, no oropharyngeal lesions, moist mucosa Neck: supple, symmetric, no JVD, no thyromegaly, no lymphadenopathy, no carotid bruit Heart: RRR, no murmur, no gallops, no rubs, normal peripheral pulses Respiratory: CTAB, no wheezes, no rales, no ronchi, normal chest expansion, no tachypnea, normal percussion Gastrointestinal: non-distended, normal bowel sounds, no palpable masses, no hepatomegaly, no splenomegaly, no bruit, no guarding, no rigidity, tender to palpation Extremities: no cyanosis, no clubbing, no edema Skin: normal turgor, no lesions, no rashes Neurological: cranial nerve grossly intact, normal sensation to touch, no weakness, no focal deficits, no new deficit Musculoskeletal: normal tone, normal strength, no muscle wasting Psychiatric: normal affect, normal behavior, A&O x 3 Hosp A/P - Plan Acute on chronic pancreatitis Patient with history of prior pancreatitis episodes due to alcohol and gallsto ne, S/p patricio, who presents with severe epigastric abdominal pain radiating to her back along with nausea and p.o. intolerance. Lipase mildly elevated to 135. WBC 8.6. Patient afebrile. Patient endorses recent alcohol binge prior to episode. Patient failed p.o. challenge in emergency room. Patient has had multiple CT scans in the past. Initially held off on pursing CT scan, however patient's abdominal pain is worse on exam today and she continues to have severe nausea and PO intolerance. Will obtain CT a/p. Abdominal US was not able to visualize the pancreas, but did note increased echogenicity of the liver favoring hepatocellular disease. Triglyceride level wnl. Igg pending. Plan CT a/p LR @ 150 cc/h Clears Serial abdominal exams Pain control with morphine Hypokalemia Potassium low at 2.9 on admission. ER repleted with p.o., however patient was unable to tolerate and vomited. Has been recieving IV repletion and this am K 3.5. Will continue to monitor and replete as needed. EtOH use Patient with a history of alcohol use and prior episodes of pancreatitis. Patient reports nearly daily alcohol use. She usually drinks wine coolers and finds that those do not aggravate her pancreatitis symptoms, but that hard liquor which he binged on prior to admission she is unable to tolerate. Patient denies any history of seizures or prior admissions for alcohol withdrawal. Will place patient on ASE protocol and monitor for withdrawal symptoms. Plan ASE protocol Magnesium, vitamin B12, folate Dental abscess Patient endorses upper molar tooth pain. Mild facial swelling on exam. No concern for threat to airway at this time. Will start patient on IV Unasyn as she is unable to tolerate PO and continue to monitor. Plan -IV unasyn -Continue to monitor Hypertension Patient with history of hypertension on home amlodipine. Patient normotensive in emergency room. Will hold home medication and restart as needed. Uterine fibroids History of uterine fibroids which was identified on last admission. 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 She currently denies pelvic pain, urinary symptoms or any changes in her menstrual pattern. Beta hCG negative. Encouraged patient to seek gynecological evaluation as an outpatient. DVT prophylaxisLovenox Full code Case discussed with attending physician, Dr. Kennedy.
--- NOTE | 2020-11-02 12:04 | CT ---
EXAM: CT ABDOMEN AND PELVIS HISTORY: Pancreatitis. Abdominal pain. COMPARISON: 06/05/2020 Procedure: Multiple contiguous axial images were obtained and a CT of the abdomen and pelvis with IV contrast. C oronal reformats were performed. FINDINGS: Lower Chest: Bibasilar subsegmental atelectasis and scarring Vessels: Normal caliber aorta. No periaortic fat stranding Heart: Normal heart size. No significant pericardial fluid Abdomen: Portal vein:Patent Gallbladder: Surgically absent Liver: within normal limits. Pancreas: There is stranding involving the peripancreatic soft tissues at the level of the head and p roximal body the pancreas. There are associated enlarged peripancreatic lymph nodes. No evidence of abscess or pseudocyst. No CT evidence of choledocholithiasis. Spleen: within normal limits. Adrenals: within normal limits. Kidneys: Symmetric enhancement. No obstructive uropathy. Peritoneum: No ascites, free air or free fluid. Scattered upper normal mesenteric lymph nodes are antonette ntified, similar to the previous examination. Bowel: Limited evaluation by the lack of oral contrast. There are reactive changes involving the seco nd and third portion of the duodenum. No small bowel obstruction. Normal ileocecal junction. Normal caliber appendix. Scattered fecal material in nondistended, nondilated colon. Mesentery and Retroperitoneum: Scattered retroperitoneal and mesenteric upper normal lymph nodes, non specific Abdominal Wall: within normal limits. Pelvis: Reproductive Organs: At least 2 separate calcified uterine leiomyomas Pelvis: No mass, lymphadenopathy, free air or free fluid. Bladder: within normal limits. Bones: within normal limits. IMPRESSION: 1. CT evidence of pancreatitis. No evidence of abscess or pseudocyst. 2. Reactive changes of the second and third portion the duodenum.
[2020-11-02] MEDS: Ampicillin/Sulbactam 3 GM in Sodium Chloride 0.9% 100 ML IVPB SCH ×4 (13:38→23:41)
[2020-11-02] MEDS ORDERED: Iopamidol-370 76% 500 ML 1 ML ONE (14:55)
[2020-11-02 15:46] LABS: Bacteria/HPF None Seen HPF (None Seen); Bilirubin Negative (Negative); Blood, Urine Trace (Negative); Clarity Clear (Clear); Glucose, Urine (Dipstick) Normal (Negative); Ketone, Urine 40 mg/dL (Negative); Leukocyte Negative Leu/uL (Negative); Nitrite Negative (Negative); Protein, Urine (Dipstick) Negative (Neg-Trace); RBC/HPF 0-3 HPF (0-3); Urobilinogen Normal mg/dL (Less than 2); WBC/HPF 0-3 HPF (0-3)
[2020-11-02 15:48] LABS: Specific Gravity, Urine 1.062 (1.002-1.036)
[2020-11-02 15:49] LABS: Urine Culture Reflex No No
[2020-11-02 16:02] LABS: Iron 49 ug/dL (50-170); Iron Binding Capacity, Total 410 mcg/dL (265-497)
--- NOTE | 2020-11-02 20:38 | PDOC.EVN ---
Event Note - Event Note Event Note: Patient was reviewed with Kerri Odom. Patient appears to have a fairly straightforward pancreatitis as evidenced by her CT scan today and her elevated lipase. Consistent with her history and exam. I evaluated the patient however she was fairly somnolent due to pain medications. Continue with the current plan of bowel rest, pain management and time.
[2020-11-02] MEDS: Lactated Ringer's 1,000 ML IV SCH (23:24)
[2020-11-03] MEDS: Morphine 4 MG/ML VIAL SLOW IVP PRN ×6 (03:22→23:51)
[2020-11-03] MEDS: Ampicillin/Sulbactam 3 GM in Sodium Chloride 0.9% 100 ML IVPB SCH ×6 (04:42→23:58)
[2020-11-03 05:37] LABS: IgG Subclass 1 699 mg/dL (248-810); IgG Subclass 2 376 mg/dL (130-555); IgG Subclass 3 132 mg/dL (15-102); Immunoglobulin - G (Sendout) 1373 mg/dL (586-1602)
[2020-11-03] MEDS: Lactated Ringer's 1,000 ML IV SCH ×3 (06:00→17:58)
[2020-11-03 06:46] LABS: #Basophils 0.1 thou/uL (0.0-0.2); #Eosinphils 0.2 thou/uL (0.0-0.7); #Lymphocytes 1.9 thou/uL (1.20-3.40); #Monocytes 0.3 thou/uL (0.11-0.59); #Neutrophils 6.1 thou/uL (1.40-6.50); %Basophils 1.1 % (0.0-1.0); %Eosinophils 2.7 % (0.0-10.0); %Lymphocytes 21.5 % (21.0-51.0); %Monocytes 3.9 % (0.0-10.0); %Neutrophils 70.8 % (42.0-75.0); Hemoglobin 9.7 g/dL (12.0-16.0); Mean Corpuscular HGB CONC 32.8 g/dL (32.0-36.0); Mean Corpuscular Hemoglobin 28.3 pg (27.0-31.0); Mean Corpuscular Volume 86.2 fL (78.0-98.0); Mean Platelet Volume 8.5 fL (7.4-10.4); Platelet Count 429 thou/uL (130-400); RBC Distribution Width 26.5 % (11.5-14.5); Red Blood Cell (RBC) Count 3.44 mill/uL (4.20-5.40); White Blood Cell (WBC) Count 8.6 thou/uL (4.8-10.8)
[2020-11-03 07:04] LABS: Anion Gap 15 mmol/L (10-20); BUN (Urea Nitrogen) 4 mg/dL (7.0-18.7); Calc. Creatinine Clearance 188 mL/min (70-130); Calcium 8.9 mg/dL (7.8-10.44); Carbon Dioxide 25 mmol/L (22-29); Chloride 99 mmol/L (98-107); Glucose 76 mg/dL (70-105); Potassium 3.5 mmol/L (3.5-5.1); Sodium 135 mmol/L (136-145)
[2020-11-03] MEDS: Folic Acid 1 MG TAB PO SCH (09:01)
[2020-11-03] MEDS: Enoxaparin Sodium 40 MG/0.4 ML SYRINGE SC SCH (09:01)
[2020-11-03] MEDS: Thiamine 100 MG TAB PO SCH (09:01)
--- NOTE | 2020-11-03 12:07 | PDOC.HOSPP ---
- Subjective Encounter Date: 11/03/20 Encounter Time: 12:05 Subjective: No overnight events. Patient continues to endorse abdominal pain. Unable to tolerate PO intake. CT scan from yesterday showed non-complicated pancreatitis without pseudocyt or necrosis. Chart and medications reviewed. - Objective Vital Signs & Weight: Vital Signs (12 hours) Temp Pulse Resp BP Pulse Ox 11/03/20 07:44 98.2 F 96 18 123/83 97 11/03/20 03:28 98.8 F 104 H 18 129/85 98 Weight Weight 200 lb I&O: 11/02/20 11/03/20 11/04/20 06:59 06:59 06:59 Intake Total 3300 3900 Balance 3300 3900 Result Diagrams: 11/03/20 06:15 11/03/20 06:15 Hospitalist ROS - Review of Systems Constitutional: denies: fever, chills, sweats, weakness, malaise, other Eyes: denies: vision change ENT: denies: ear pain, ear discharge, nose pain, nose discharge, nose congestion, mouth pain, mouth swelling, throat pain, throat swelling, other Respiratory: denies: cough, shortness of breath, hemoptysis, SOB with excertion Cardiovascular: denies: chest pain, palpitations, edema, light headedness Gastrointestinal: reports: nausea, abdominal pain. denies: vomiting, diarrhea, constipation, melena, hematochezia Genitourinary: denies: dysuria, frequency, incontinence, hematuria, retention, other Musculoskeletal: denies: neck pain, shoulder pain, arm pain, back pain, hand pain, leg pain, foot pain, other Skin: denies: rash, lesions, maria de jesus, bruising, other Neurological: denies: weakness, numbness, incoordination, change in speech, confusion, seizures, other - Medication Medications: Active Medications Generic Name Dose Route Start Last Admin Trade Name Freq PRN Reason Stop Dose Admin Enoxaparin Sodium 40 mg 11/01/20 09:00 11/03/20 09:01 Enoxaparin Sodium 40 Mg/0.4 Ml Syringe SC 40 mg 0900 ROBERT Administration Folic Acid 1 mg 11/03/20 09:00 11/03/20 09:01 Folic Acid 1 Mg Tab PO 1 mg DAILY ROBERT Administration Ampicillin Sodium/Sulbactam 100 mls @ 200 mls/hr 11/02/20 13:00 11/03/20 09:18 Sodium 3 gm/ Sodium Chloride IVPB 100 mls Q4HR ROBERT Administration Lactated Ringer's 1,000 mls @ 150 mls/hr 11/02/20 22:00 11/03/20 09:02 Lactated Ringer's IV 1,000 mls .[id number] ROBERT Administration Morphine Sulfate 4 mg 11/01/20 18:24 11/03/20 11:41 Morphine 4 Mg/Ml Vial SLOW IVP 4 mg Q4H PRN Administration Severe Pain (7-10) Ondansetron HCl 4 mg 11/01/20 07:45 11/02/20 07:48 Ondansetron Pf 4 Mg/2 Ml Vial IVP 4 mg Q6H PRN Administration Nausea/Vomiting Thiamine HCl 100 mg 11/03/20 09:00 11/03/20 09:01 Thiamine 100 Mg Tab PO 100 mg DAILY ROBERT Administration - Exam General Appearance: NAD, awake alert Eye: PERRL, anicteric sclera ENT: normocephalic atraumatic, no oropharyngeal lesions, moist mucosa Neck: supple, symmetric, no JVD, no thyromegaly, no lymphadenopathy, no carotid bruit Heart: RRR, no murmur, no gallops, no rubs, normal peripheral pulses Respiratory: CTAB, no wheezes, no rales, no ronchi, normal chest expansion, no tachypnea, normal percussion Gastrointestinal: tender to palpation. negative: soft, non-tender, non- distended, normal bowel sounds, no palpable masses, no hepatomegaly, no splenomegaly, no bruit, no guarding, no rigidity, distended, diminished bowl sounds, voluntary guarding Extremities: no cyanosis, no clubbing, no edema Skin: normal turgor, no lesions, no rashes Neurological: cranial nerve grossly intact, normal sensation to touch, no weakness, no focal deficits, no new deficit Musculoskeletal: normal tone, normal strength, no muscle wasting Psychiatric: normal affect, normal behavior, A&O x 3 Hosp A/P - Plan Acute on chronic pancreatitis Patient with history of prior pancreatitis episodes due to alcohol and gallstone, S/p patricio, who presents with severe epigastric abdominal pain radiating to her back along with nausea and p.o. intolerance. Lipase mildly elevated to 135. WBC 8.6. Patient afebrile. Patient endorses recent alcohol binge prior to episode. Patient failed p.o. challenge in emergency room. Patient has had multiple CT scans in the past. Initially held off on pursing CT scan, however patient's abdominal pain is worse on exam today and she continues to have severe nausea and PO intolerance. CT a/p showed pancreatitis without necrosis or pseudocyst. Abdominal US was not able to visualize the pancreas, but did note increased echogenicity of the liver favoring hepatocellular disease. Triglyceride level wnl. Will continue medical management. Plan LR @ 150 cc/h Clears Serial abdominal exams Pain control with morphine Hypokalemia Potassium low at 2.9 on admission. ER repleted with p.o., however patient was unable to tolerate and vomited. Has been recieving IV repletion and this am K 3.5. Will continue to monitor and replete as needed. EtOH use Patient with a history of alcohol use and prior episodes of pancreatitis. Patient reports nearly daily alcohol use. She usually drinks wine coolers and finds that those do not aggravate her pancreatitis symptoms, but that hard liquor which he binged on prior to admission she is unable to tolerate. Patient denies any history of seizures or prior admissions for alcohol withdrawal. Will place patient on ASE protocol and monitor for withdrawal symptoms. Plan ASE protocol Magnesium, vitamin B12, folate Dental abscess Patient endorses upper molar tooth pain. Mild facial swelling on exam. No concern for threat to airway at this time. Will start patient on IV Unasyn as she is unable to tolerate PO and continue to monitor. 11/03, much improved. Patient afebrile. Infection localized to small abscess on gum line which patient burst herself. Will d/c abx. Plan -D/c abx -Continue to monitor Hypertension Patient with history of hypertension on home amlodipine. Patient normotensive in emergency room. Will hold home medication and restart as needed. Uterine fibroids History of uterine fibroids which was identified on last admission. 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 She currently denies pelvic pain, urinary symptoms or any changes in her menstrual pattern. Beta hCG negative. Encouraged patient to seek gynecological evaluation as an outpatient. DVT prophylaxisLovenox Full code Case discussed with attending physician, Dr. Morgan.
[2020-11-03] MEDS ORDERED: Morphine 2 MG/ML VIAL SLOW IVP PRN (14:47)
[2020-11-03 16:09] LABS: ANA Symphony (Qualitative) Negative (Negative); ANA Symphony (Quantitative) 0.3 Ratio (< 0.7 Negative); dsDNA IgG Antibody 2.7 IU/mL (<10 Negative)
[2020-11-04] MEDS: Morphine 4 MG/ML VIAL SLOW IVP PRN ×5 (03:59→20:34)
[2020-11-04] MEDS: Ampicillin/Sulbactam 3 GM in Sodium Chloride 0.9% 100 ML IVPB SCH (03:59)
[2020-11-04] MEDS: Lactated Ringer's 1,000 ML IV SCH ×2 (03:59→08:59)
[2020-11-04 06:55] LABS: Anion Gap 15 mmol/L (10-20); BUN (Urea Nitrogen) 4 mg/dL (7.0-18.7); Calc. Creatinine Clearance 208 mL/min (70-130); Calcium 9.1 mg/dL (7.8-10.44); Carbon Dioxide 20 mmol/L (22-29); Chloride 100 mmol/L (98-107); Potassium 3.3 mmol/L (3.5-5.1); Sodium 132 mmol/L (136-145)
[2020-11-04 06:57] LABS: Glucose 58 mg/dL (70-105)
[2020-11-04 07:04] LABS: #Basophils 0.1 thou/uL (0.0-0.2); #Eosinphils 0.3 thou/uL (0.0-0.7); #Monocytes 0.3 thou/uL (0.11-0.59); #Neutrophils 5.8 thou/uL (1.40-6.50); %Basophils 0.7 % (0.0-1.0); %Eosinophils 3.2 % (0.0-10.0); %Lymphocytes 23.5 % (21.0-51.0); %Neutrophils 68.5 % (42.0-75.0); Hemoglobin 9.7 g/dL (12.0-16.0); Mean Corpuscular HGB CONC 32.3 g/dL (32.0-36.0); Mean Corpuscular Hemoglobin 28.1 pg (27.0-31.0); Mean Corpuscular Volume 86.9 fL (78.0-98.0); Mean Platelet Volume 8.5 fL (7.4-10.4); Platelet Count 437 thou/uL (130-400); RBC Distribution Width 26.9 % (11.5-14.5); Red Blood Cell (RBC) Count 3.44 mill/uL (4.20-5.40); White Blood Cell (WBC) Count 8.4 thou/uL (4.8-10.8)
[2020-11-04 07:05] LABS: Band 3 % (5-11); Hypochromia SLIGHT = 6-15 cells (100X) (0-5/hpf); Lymphocytes 19 % (21-51); MDiff Complete? YES; Monocytes 4 % (0-10); Neutrophil 74 % (42-75); Platelet Morphology Comment Appears Increased
[2020-11-04] MEDS ORDERED: Magnesium 2 GM/50 ML 2 GM in Premix Bag 1 BAG IVPB SCH (07:30)
[2020-11-04] MEDS: Folic Acid 1 MG TAB PO SCH (10:03)
[2020-11-04] MEDS: Thiamine 100 MG TAB PO SCH (10:03)
[2020-11-04] MEDS: Enoxaparin Sodium 40 MG/0.4 ML SYRINGE SC SCH (10:03)
--- NOTE | 2020-11-04 11:04 | PDOC.HOSPP ---
- Subjective Encounter Date: 11/04/20 Encounter Time: 11:02 Subjective: No overnight events. Patient reports mild improvement in her abdominal pain. Endorses hunger, would like to try a soft diet today. Endorses nausea. Denies vomiting. Denies SOB or chest pain. Chart and medications reviewed. - Objective Vital Signs & Weight: Vital Signs (12 hours) Temp Pulse Resp BP Pulse Ox 11/04/20 08:00 97 11/04/20 06:55 98.1 F 73 16 126/74 97 11/04/20 04:13 98.2 F 83 16 116/81 97 11/04/20 00:00 98.4 F 76 16 107/69 96 Weight Weight 200 lb I&O: 11/03/20 11/04/20 11/05/20 06:59 06:59 06:59 Intake Total 3900 4200 Balance 3900 4200 Result Diagrams: 11/04/20 06:08 11/04/20 06:08 Hospitalist ROS - Review of Systems Constitutional: denies: fever, chills, sweats, weakness, malaise, other Eyes: denies: pain, vision change, conjunctivae inflammation, eyelid inflammation, redness, other ENT: denies: ear pain, ear discharge, nose pain, nose discharge, nose congestion, mouth pain, mouth swelling, throat pain, throat swelling, other Respiratory: denies: cough, dry, shortness of breath, hemoptysis, SOB with excertion, pleuritic pain, sputum, wheezing, other Cardiovascular: denies: chest pain, palpitations, orthopnea, paroxysmal noc. dyspnea, edema, light headedness, other Gastrointestinal: reports: nausea, abdominal pain. denies: vomiting, diarrhea, constipation, melena, hematochezia, other Genitourinary: denies: dysuria, frequency, incontinence, hematuria, retention, other Musculoskeletal: denies: neck pain, shoulder pain, arm pain, back pain, hand pain, leg pain, foot pain, other Skin: denies: rash, lesions, maria de jesus, bruising, other Neurological: denies: weakness, numbness, incoordination, change in speech, confusion, seizures, other - Medication Medications: Active Medications Generic Name Dose Route Start Last Admin Trade Name Freq PRN Reason Stop Dose Admin Enoxaparin Sodium 40 mg 11/01/20 09:00 11/04/20 10:03 Enoxaparin Sodium 40 Mg/0.4 Ml Syringe SC 40 mg 0900 ROBERT Administration Folic Acid 1 mg 11/03/20 09:00 11/04/20 10:03 Folic Acid 1 Mg Tab PO 1 mg DAILY ROBERT Administration Potassium Chloride 30 meq/ 1,015 mls @ 100 mls/hr 11/04/20 07:30 11/04/20 09:29 Dextrose/Lactated Ringer's IV 1,015 mls .Q10H9M ROBERT Administration Morphine Sulfate 4 mg 11/01/20 18:24 11/04/20 08:07 Morphine 4 Mg/Ml Vial SLOW IVP 4 mg Q4H PRN Administration Severe Pain (7-10) Ondansetron HCl 4 mg 11/01/20 07:45 11/02/20 07:48 Ondansetron Pf 4 Mg/2 Ml Vial IVP 4 mg Q6H PRN Administration Nausea/Vomiting Thiamine HCl 100 mg 11/03/20 09:00 11/04/20 10:03 Thiamine 100 Mg Tab PO 100 mg DAILY ROBERT Administration - Exam General Appearance: NAD, awake alert Eye: PERRL, anicteric sclera ENT: normocephalic atraumatic, no oropharyngeal lesions, moist mucosa Neck: supple, symmetric, no JVD, no thyromegaly, no lymphadenopathy, no carotid bruit Heart: RRR, no murmur, no gallops, no rubs, normal peripheral pulses Respiratory: CTAB, no wheezes, no rales, no ronchi, normal chest expansion, no tachypnea, normal percussion Gastrointestinal: soft, non-distended, normal bowel sounds, no palpable masses, no hepatomegaly, no splenomegaly, no bruit, tender to palpation Extremities: no cyanosis, no clubbing, no edema Skin: normal turgor, no lesions, no rashes Neurological: cranial nerve grossly intact, normal sensation to touch, no weakness, no focal deficits, no new deficit Musculoskeletal: normal tone, normal strength, no muscle wasting Psychiatric: normal affect, normal behavior, A&O x 3 Hosp A/P - Plan Acute on chronic pancreatitis Patient with history of prior pancreatitis episodes due to alcohol and gallstone, S/p patricio, who presents with severe epigastric abdominal pain radiating to her back along with nausea and p.o. intolerance. Lipase mildly elevated to 135. WBC 8.6. Patient afebrile. Patient endorses recent alcohol binge prior to episode. Patient failed p.o. challenge in emergency room. Patient has had multiple CT scans in the past. Initially held off on pursing CT scan, however patient's abdominal pain was worse on exam 11/02 and she continues to have severe nausea and PO intolerance. CT a/p showed pancreatitis without necrosis or pseudocyst. Abdominal US was not able to visualize the pancreas, but did note increased echogenicity of the liver favoring hepatocellular disease. Triglyceride level wnl. Will continue medical management. Plan Abdominal pain improving -Continue LR, encourage PO intake Transition to soft low fat diet Serial abdominal exams Pain control with morphine Hypokalemia Potassium low at 2.9 on admission. ER repleted with p.o., however patient was unable to tolerate and vomited. Has been receiving IV repletion and this am K 3.5. Will continue to monitor and replete as needed. EtOH use Patient with a history of alcohol use and prior episodes of pancreatitis. Patient reports nearly daily alcohol use. She usually drinks wine coolers and finds that those do not aggravate her pancreatitis symptoms, but that hard liquor which he binged on prior to admission she is unable to tolerate. Patient denies any history of seizures or prior admissions for alcohol withdrawal. Will place patient on ASE protocol and monitor for withdrawal symptoms. Plan ASE protocol Magnesium, vitamin B12, folate Dental abscess Patient endorses upper molar tooth pain. Mild facial swelling on exam. No concern for threat to airway at this time. Will start patient on IV Unasyn as she is unable to tolerate PO and continue to monitor. 11/03, much improved. Patient afebrile. Infection localized to small abscess on gum line which patient burst herself. Will d/c abx. Resolved. Plan -D/c abx -Continue to monitor Hypertension Patient with history of hypertension on home amlodipine. Patient normotensive in emergency room. Will hold home medication and restart as needed. Uterine fibroids History of uterine fibroids which was identified on last admission. 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 She currently denies pelvic pain, urinary symptoms or any changes in her menstrual pattern. Beta hCG negative. Encouraged patient to seek gynecological evaluation as an outpatient. DVT prophylaxisLovenox Full code Case discussed with attending physician, Dr. Morgan.
[2020-11-04 12:14] LABS: ALT (SGPT) 16 U/L (8-55); AST (SGOT) 17 U/L (5-34); Albumin 3.4 g/dL (3.5-5.0); Alkaline Phosphatase 108 U/L (40-110); Bilirubin, Direct 0.2 mg/dL (0.1-0.3); Bilirubin, Total 0.3 mg/dL (0.2-1.2); Protein, Total 7.2 g/dL (6.0-8.3)
[2020-11-05] MEDS: Morphine 4 MG/ML VIAL SLOW IVP PRN ×6 (00:48→20:47)
[2020-11-05 06:22] LABS: #Eosinphils 0.3 thou/uL (0.0-0.7); #Monocytes 0.4 thou/uL (0.11-0.59); #Neutrophils 4.8 thou/uL (1.40-6.50); %Basophils 0.6 % (0.0-1.0); %Eosinophils 4.1 % (0.0-10.0); %Lymphocytes 26.1 % (21.0-51.0); %Monocytes 5.9 % (0.0-10.0); %Neutrophils 63.3 % (42.0-75.0); Hemoglobin 9.7 g/dL (12.0-16.0); Mean Corpuscular HGB CONC 31.1 g/dL (32.0-36.0); Mean Corpuscular Hemoglobin 27.2 pg (27.0-31.0); Mean Corpuscular Volume 87.4 fL (78.0-98.0); Mean Platelet Volume 8.1 fL (7.4-10.4); Platelet Count 444 thou/uL (130-400); Red Blood Cell (RBC) Count 3.57 mill/uL (4.20-5.40); White Blood Cell (WBC) Count 7.5 thou/uL (4.8-10.8)
[2020-11-05 06:37] LABS: Anion Gap 12 mmol/L (10-20); BUN (Urea Nitrogen) Less than 4 mg/dL (7.0-18.7); Calc. Creatinine Clearance 201 mL/min (70-130); Calcium 9.1 mg/dL (7.8-10.44); Carbon Dioxide 24 mmol/L (22-29); Chloride 102 mmol/L (98-107); Glucose 88 mg/dL (70-105); Potassium 3.7 mmol/L (3.5-5.1); Sodium 134 mmol/L (136-145)
--- NOTE | 2020-11-05 08:16 | PDOC.HOSPP ---
- Subjective Encounter Date: 11/05/20 Encounter Time: 10:10 Subjective: Patient reports continued mid epigastric pain that worsened some when she ate some crackers this morning. She has been tolerating some clear liquids. She is still requiring pain medicines about every 4 hours. No other complaints. The symptoms are markedly improved from the last few days - Objective Vital Signs & Weight: Vital Signs (12 hours) Temp Pulse Resp BP Pulse Ox 11/05/20 04:40 98.3 F 76 16 125/88 98 11/04/20 23:47 94 14 116/74 99 11/04/20 20:30 98.6 F 66 16 120/78 97 Weight Weight 200 lb I&O: 11/04/20 11/05/20 11/06/20 06:59 06:59 06:59 Intake Total 4200 2850 Balance 4200 2850 Result Diagrams: 11/05/20 06:05 11/05/20 06:05 Hospitalist ROS - Review of Systems Constitutional: denies: fever, chills Respiratory: denies: cough, shortness of breath Cardiovascular: denies: chest pain, palpitations Gastrointestinal: reports: abdominal pain. denies: nausea, vomiting, diarrhea, constipation - Medication Medications: Active Medications Generic Name Dose Route Start Last Admin Trade Name Freq PRN Reason Stop Dose Admin Enoxaparin Sodium 40 mg 11/01/20 09:00 11/04/20 10:03 Enoxaparin Sodium 40 Mg/0.4 Ml Syringe SC 40 mg 0900 ROBERT Administration Folic Acid 1 mg 11/03/20 09:00 11/04/20 10:03 Folic Acid 1 Mg Tab PO 1 mg DAILY ROBERT Administration Potassium Chloride 30 meq/ 1,015 mls @ 100 mls/hr 11/04/20 07:30 11/05/20 04:47 Dextrose/Lactated Ringer's IV 1,015 mls .Q10H9M ROBERT Administration Morphine Sulfate 4 mg 11/01/20 18:24 11/05/20 04:39 Morphine 4 Mg/Ml Vial SLOW IVP 4 mg Q4H PRN Administration Severe Pain (7-10) Ondansetron HCl 4 mg 11/01/20 07:45 11/02/20 07:48 Ondansetron Pf 4 Mg/2 Ml Vial IVP 4 mg Q6H PRN Administration Nausea/Vomiting Thiamine HCl 100 mg 11/03/20 09:00 11/04/20 10:03 Thiamine 100 Mg Tab PO 100 mg DAILY ROBERT Administration - Exam General Appearance: NAD, awake alert ENT: moist mucosa Heart: RRR, no murmur, no gallops, no rubs Respiratory: CTAB, no wheezes, no rales, no ronchi Gastrointestinal: soft, non-distended, normal bowel sounds, no guarding, no rigidity Gastrointestinal - other findings: Moderate midepigastric pain to palpation Extremities: no edema Psychiatric: normal affect, normal behavior, A&O x 3 Hosp A/P - Plan Acute on chronic pancreatitis Patient with history of prior pancreatitis episodes due to alcohol and gallstone, S/p patricio, who presents with severe epigastric abdominal pain radiating to her back along with nausea and p.o. intolerance. Lipase mildly elevated to 135. WBC 8.6. Patient afebrile. Patient endorses recent alcohol binge prior to episode. Patient failed p.o. challenge in emergency room. Patient has had multiple CT scans in the past. Initially held off on pursing CT scan, however patient's abdominal pain was worse on exam 11/02 and she continues to have severe nausea and PO intolerance. CT abd showed pancreatitis without necrosis or pseudocyst. Abdominal US was not able to visualize the pancreas, but did note increased echogenicity of the liver favoring hepatocellular disease. Triglyceride level wnl. Will continue medical management. Plan Abdominal pain improving -Continue LR, encourage PO intake Transition to soft low fat diet as tolerated Serial abdominal exams Pain control with morphine Hypokalemia Potassium low at 2.9 on admission. ER repleted with p.o., however patient was unable to tolerate and vomited. Has been receiving IV repletion and this am K 3.7. Will continue to monitor and replete as needed. EtOH use Patient with a history of alcohol use and prior episodes of pancreatitis. Patient reports nearly daily alcohol use. She usually drinks wine coolers and finds that those do not aggravate her pancreatitis symptoms, but that hard liquor which she binged on prior to admission she is unable to tolerate. Patient denies any history of seizures or prior admissions for alcohol withdrawal. Will place patient on ASE protocol and monitor for withdrawal symptoms. Plan ASE protocol Magnesium, vitamin B12, folate Dental abscess-resolved Patient endorses upper molar tooth pain. Mild facial swelling on exam. No concer n for threat to airway at this time. Will start patient on IV Unasyn as she is unable to tolerate PO and continue to monitor. 11/03, much improved. Patient afebrile. Infection localized to small abscess on gum line which patient burst herself. Will d/c abx. Resolved. Plan -D/c'd abx -Continue to monitor Hypertension Patient with history of hypertension on home amlodipine. Patient normotensive in emergency room. Will hold home medication and restart as needed. Uterine fibroids History of uterine fibroids which was identified on last admission. 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 She currently denies pelvic pain, urinary symptoms or any changes in her menstrual pattern. Beta hCG negative. Encouraged patient to seek gynecological evaluation as an outpatient. DVT prophylaxisLovenox Full code Disposition Home soon when tolerating diet. Maybe 1 or 2 more days.
[2020-11-05] MEDS: Enoxaparin Sodium 40 MG/0.4 ML SYRINGE SC SCH (08:44)
[2020-11-05] MEDS: Folic Acid 1 MG TAB PO SCH (08:44)
[2020-11-05] MEDS: Thiamine 100 MG TAB PO SCH (08:44)
[2020-11-05] MEDS: Pantoprazole 40 MG VIAL IVP SCH (08:45)
[2020-11-05] MEDS: Ondansetron PF 4 MG/2 ML Vial IVP PRN (18:31)
[2020-11-06] MEDS: Morphine 4 MG/ML VIAL SLOW IVP PRN ×5 (01:00→21:34)
[2020-11-06] MEDS: Ondansetron PF 4 MG/2 ML Vial IVP PRN ×2 (05:03→10:48)
[2020-11-06 06:20] LABS: #Basophils 0.1 thou/uL (0.0-0.2); #Eosinphils 0.3 thou/uL (0.0-0.7); #Lymphocytes 2.3 thou/uL (1.20-3.40); #Monocytes 0.5 thou/uL (0.11-0.59); #Neutrophils 3.4 thou/uL (1.40-6.50); %Basophils 0.8 % (0.0-1.0); %Eosinophils 4.3 % (0.0-10.0); %Lymphocytes 35.2 % (21.0-51.0); %Monocytes 7.2 % (0.0-10.0); %Neutrophils 52.5 % (42.0-75.0); Hemoglobin 9.8 g/dL (12.0-16.0); Mean Corpuscular HGB CONC 32.9 g/dL (32.0-36.0); Mean Corpuscular Hemoglobin 29.1 pg (27.0-31.0); Mean Corpuscular Volume 88.4 fL (78.0-98.0); Mean Platelet Volume 8.6 fL (7.4-10.4); Platelet Count 466 thou/uL (130-400); RBC Distribution Width 27.2 % (11.5-14.5); Red Blood Cell (RBC) Count 3.38 mill/uL (4.20-5.40); White Blood Cell (WBC) Count 6.5 thou/uL (4.8-10.8)
[2020-11-06 06:35] LABS: Anion Gap 11 mmol/L (10-20); BUN (Urea Nitrogen) Less than 4 mg/dL (7.0-18.7); Calc. Creatinine Clearance 176 mL/min (70-130); Calcium 9.2 mg/dL (7.8-10.44); Carbon Dioxide 26 mmol/L (22-29); Chloride 102 mmol/L (98-107); Glucose 96 mg/dL (70-105); Sodium 135 mmol/L (136-145)
--- NOTE | 2020-11-06 07:44 | PDOC.HOSPP ---
- Subjective Encounter Date: 11/06/20 Encounter Time: 10:00 Subjective: Patient has been requesting morphine every 4 hours. She states she did has been drinking lots of fluids had crackers yesterday, and ate some chicken salad for dinner which did not seem to exacerbate her pain. No nausea or vomiting. Patient states that it took about 2 or 3 weeks for pain to resolve last time about 2 years ago when she was in the hospital for this. She ended up going home with [place] and Toradol orally at that time. She thinks that she is near ready to go home with oral medications. - Objective Vital Signs & Weight: Vital Signs (12 hours) Temp Pulse Resp BP Pulse Ox 11/06/20 03:52 98.1 F 65 16 94/67 95 11/05/20 23:36 98.3 F 63 16 110/78 97 11/05/20 19:56 98.5 F 70 16 110/66 96 Weight Weight 200 lb I&O: 11/05/20 11/06/20 11/07/20 06:59 06:59 06:59 Intake Total 2850 2780 Balance 2850 2780 Result Diagrams: 11/06/20 05:28 11/06/20 05:28 Additional Labs: Accuchecks 11/04/20 07:16 POC Glucose 57 L* Hospitalist ROS - Review of Systems Constitutional: denies: fever, chills Respiratory: denies: cough, shortness of breath Cardiovascular: denies: chest pain, palpitations Gastrointestinal: reports: abdominal pain. denies: nausea, vomiting, diarrhea, constipation Genitourinary: denies: dysuria, hematuria - Medication Medications: Active Medications Generic Name Dose Route Start Last Admin Trade Name Edsonq PRN Reason Stop Dose Admin Enoxaparin Sodium 40 mg 11/01/20 09:00 11/05/20 08:44 Enoxaparin Sodium 40 Mg/0.4 Ml Syringe SC 40 mg 0900 ROBERT Administration Folic Acid 1 mg 11/03/20 09:00 11/05/20 08:44 Folic Acid 1 Mg Tab PO 1 mg DAILY ROBERT Administration Potassium Chloride 30 meq/ 1,015 mls @ 100 mls/hr 11/04/20 07:30 11/06/20 05:04 Dextrose/Lactated Ringer's IV 1,015 mls .Q10H9M ROBERT Administration Morphine Sulfate 4 mg 11/01/20 18:24 11/06/20 05:03 Morphine 4 Mg/Ml Vial SLOW IVP 4 mg Q4H PRN Administration Severe Pain (7-10) Ondansetron HCl 4 mg 11/01/20 07:45 11/06/20 05:03 Ondansetron Pf 4 Mg/2 Ml Vial IVP 4 mg Q6H PRN Administration Nausea/Vomiting Pantoprazole Sodium 40 mg 11/05/20 09:00 11/05/20 08:45 Pantoprazole 40 Mg Vial IVP 40 mg DAILY ROBERT Administration Thiamine HCl 100 mg 11/03/20 09:00 11/05/20 08:44 Thiamine 100 Mg Tab PO 100 mg DAILY ROBERT Administration Hospitalist Exam Vitals: Vital Signs (12 hours) Temp Pulse Resp BP Pulse Ox 11/06/20 03:52 98.1 F 65 16 94/67 95 11/05/20 23:36 98.3 F 63 16 110/78 97 11/05/20 19:56 98.5 F 70 16 110/66 96 Weight Weight 200 lb General Appearance: NAD, awake alert ENT: moist mucosa Heart: RRR, no murmur, no gallops, no rubs Respiratory: CTAB, no wheezes, no rales, no ronchi Gastrointestinal: soft, non-distended, normal bowel sounds, no guarding, no rigidity Gastrointestinal - other findings: Tender to palpation in the midepigastric region Extremities: no edema Psychiatric: normal affect, normal behavior, A&O x 3 Hosp A/P - Plan Acute on chronic pancreatitis Patient with history of prior pancreatitis episodes due to alcohol and gallstone, S/p patricio, who presents with severe epigastric abdominal pain radiating to her back along with nausea and p.o. intolerance. Lipase mildly elevated to 135. WBC 8.6. Patient afebrile. Patient endorses recent alcohol binge prior to episode. Patient failed p.o. challenge in emergency room. Patient has had multiple CT scans in the past. Initially held off on pursing CT scan, however patient's abdominal pain was worse on exam 11/02 and she continues to have severe nausea and PO intolerance. CT abd showed pancreatitis without necrosis or pseudocyst. Abdominal US was not able to visualize the pancreas, but did note increased echogenicity of the liver favoring hepatocellular disease. Triglyceride level wnl. Will continue medical management. Plan Abdominal pain improving -Continue LR, encourage PO intake Transition to soft low fat diet as tolerated Serial abdominal exams Pain control with morphinewe will try switching her to oral pain medications only today and see how she is doing by tomorrow. Hypokalemia-resolved Potassium low at 2.9 on admission. ER repleted with p.o., however patient was unable to tolerate and vomited. Has been receiving IV repletion and has normalized. Continue to follow. EtOH use Patient with a history of alcohol use and prior episodes of pancreatitis. Patient reports nearly daily alcohol use. She usually drinks wine coolers and finds that those do not aggravate her pancreatitis symptoms, but that hard liquor which she binged on prior to admission she is unable to tolerate. Patient denies any history of seizures or prior admissions for alcohol withdrawal. Will place patient on ASE protocol and monitor for withdrawal symptoms. Plan ASE protocol Magnesium, vitamin B12, folate Dental abscess-resolved Patient endorses upper molar tooth pain. Mild facial swelling on exam. No concern for threat to airway at this time. Will start patient on IV Unasyn as she is unable to tolerate PO and continue to monitor. 11/03, much improved. Patient afebrile. Infection localized to small abscess on gum line which patient burst herself. Will d/c abx. Resolved. Plan -D/c'd abx -Continue to monitor Hypertension Patient with history of hypertension on home amlodipine. Patient normotensive in emergency room. Will hold home medication and restart as needed. Uterine fibroids History of uterine fibroids which was identified on last admission. 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 She currently denies pelvic pain, urinary symptoms or any changes in her menstrual pattern. Beta hCG negative. Encouraged patient to seek gynecological evaluation as an outpatient. DVT prophylaxisLovenox Full code Disposition Home soon when tolerating diet. Maybe 1 or 2 more days if can transition to oral pain medications.
[2020-11-06] MEDS: Pantoprazole 40 MG VIAL IVP SCH (09:09)
[2020-11-06] MEDS: Folic Acid 1 MG TAB PO SCH (09:09)
[2020-11-06] MEDS: Enoxaparin Sodium 40 MG/0.4 ML SYRINGE SC SCH (09:09)
[2020-11-06] MEDS: Thiamine 100 MG TAB PO SCH (09:09)
[2020-11-06] MEDS ORDERED: HYDROcodone/Acetaminophen 7.5/325 mg Tablet PO PRN (10:23)
[2020-11-06] MEDS ORDERED: Ibuprofen 600 MG TAB PO PRN (10:24)
[2020-11-06] MEDS ORDERED: Lidocaine 2% Viscous Solution 10 ML, Aluminum & Magnesium Hydroxide 30 ML SSW SCH (14:15)
[2020-11-07] MEDS: Morphine 4 MG/ML VIAL SLOW IVP PRN ×7 (01:33→21:56)
[2020-11-07 05:24] LABS: #Basophils 0.1 thou/uL (0.0-0.2); #Eosinphils 0.2 thou/uL (0.0-0.7); #Lymphocytes 1.9 thou/uL (1.20-3.40); #Monocytes 0.5 thou/uL (0.11-0.59); #Neutrophils 2.7 thou/uL (1.40-6.50); %Basophils 1.3 % (0.0-1.0); %Lymphocytes 35.6 % (21.0-51.0); %Monocytes 9.1 % (0.0-10.0); %Neutrophils 50.1 % (42.0-75.0); Hemoglobin 10.1 g/dL (12.0-16.0); Mean Corpuscular HGB CONC 32.7 g/dL (32.0-36.0); Mean Corpuscular Volume 88.6 fL (78.0-98.0); Mean Platelet Volume 8.4 fL (7.4-10.4); Platelet Count 448 thou/uL (130-400); RBC Distribution Width 26.9 % (11.5-14.5); Red Blood Cell (RBC) Count 3.49 mill/uL (4.20-5.40); White Blood Cell (WBC) Count 5.5 thou/uL (4.8-10.8)
[2020-11-07 05:47] LABS: ALT (SGPT) 44 U/L (8-55); AST (SGOT) 63 U/L (5-34); Albumin 3.3 g/dL (3.5-5.0); Alkaline Phosphatase 103 U/L (40-110); Anion Gap 13 mmol/L (10-20); BUN (Urea Nitrogen) Less than 4 mg/dL (7.0-18.7); Bilirubin, Total 0.3 mg/dL (0.2-1.2); Calc. Creatinine Clearance 161 mL/min (70-130); Calcium 9.1 mg/dL (7.8-10.44); Carbon Dioxide 24 mmol/L (22-29); Chloride 103 mmol/L (98-107); Globulin 3.7 g/dL (2.4-3.5); Glucose 96 mg/dL (70-105); Potassium 4.1 mmol/L (3.5-5.1); Sodium 136 mmol/L (136-145)
--- NOTE | 2020-11-07 07:32 | PDOC.HOSPP ---
- Subjective Encounter Date: 11/07/20 Encounter Time: 08:10 Subjective: Patient had severe worsening of pain with oral pain medicines and attempted eating dinner last night. Patient had to be put back on clear liquids and have IV morphine reinstituted. She did have one episode of vomiting last night. Pain is improved this morning but she is still needing IV morphine. - Objective Vital Signs & Weight: Vital Signs (12 hours) Temp Pulse Resp BP Pulse Ox 11/07/20 05:44 120/80 11/07/20 03:33 98.4 F 75 16 102/65 97 11/07/20 01:39 125/85 11/06/20 23:25 98.2 F 63 16 107/55 L 97 11/06/20 19:48 98.2 F 64 16 117/80 95 Weight Weight 200 lb I&O: 11/06/20 11/07/20 11/08/20 06:59 06:59 06:59 Intake Total 2780 1940 Balance 2780 1940 Result Diagrams: 11/07/20 05:10 11/07/20 05:10 Hospitalist ROS - Review of Systems Constitutional: denies: fever, chills Respiratory: denies: cough, shortness of breath Cardiovascular: denies: chest pain, palpitations Gastrointestinal: reports: nausea, vomiting, abdominal pain. denies: diarrhea, constipation - Medication Medications: Active Medications Generic Name Dose Route Start Last Admin Trade Name Freq PRN Reason Stop Dose Admin Hydrocodone Bitart/Acetaminophen 2 tab 11/06/20 10:23 11/06/20 11:17 Hydrocodone/Acetaminophen 7.5/325 Mg Tablet PO 2 tab Q4H PRN Administration Moderate Pain (4-6) Enoxaparin Sodium 40 mg 11/01/20 09:00 11/06/20 09:09 Enoxaparin Sodium 40 Mg/0.4 Ml Syringe SC 40 mg 0900 ROBERT Administration Folic Acid 1 mg 11/03/20 09:00 11/06/20 09:09 Folic Acid 1 Mg Tab PO 1 mg DAILY ROBERT Administration Potassium Chloride 30 meq/ 1,015 mls @ 100 mls/hr 11/04/20 07:30 11/07/20 02:01 Dextrose/Lactated Ringer's IV 1,015 mls .Q10H9M ROBERT Administration Morphine Sulfate 4 mg 11/06/20 17:04 11/07/20 05:39 Morphine 4 Mg/Ml Vial SLOW IVP 4 mg Q4H PRN Administration Severe Pain (7-10) Ondansetron HCl 4 mg 11/01/20 07:45 11/06/20 10:48 Ondansetron Pf 4 Mg/2 Ml Vial IVP 4 mg Q6H PRN Administration Nausea/Vomiting Pantoprazole Sodium 40 mg 11/05/20 09:00 11/06/20 09:09 Pantoprazole 40 Mg Vial IVP 40 mg DAILY ROBERT Administration Thiamine HCl 100 mg 11/03/20 09:00 11/06/20 09:09 Thiamine 100 Mg Tab PO 100 mg DAILY ROBERT Administration Hospitalist Exam Vitals: Vital Signs (12 hours) Temp Pulse Resp BP Pulse Ox 11/07/20 05:44 120/80 11/07/20 03:33 98.4 F 75 16 102/65 97 11/07/20 01:39 125/85 11/06/20 23:25 98.2 F 63 16 107/55 L 97 11/06/20 19:48 98.2 F 64 16 117/80 95 Weight Weight 200 lb General Appearance: NAD, awake alert ENT: moist mucosa Heart: RRR, no murmur, no gallops, no rubs Respiratory: CTAB, no wheezes, no rales, no ronchi Gastrointestinal: soft, non-distended, normal bowel sounds, voluntary guarding. negative: distended Gastrointestinal - other findings: Moderate midepigastric tenderness to palpation. Extremities: no edema Psychiatric: normal affect, normal behavior, A&O x 3 Hosp A/P - Plan Acute on chronic pancreatitis Patient with history of prior pancreatitis episodes due to alcohol and gallstone, S/p patricio, who presents with severe epigastric abdominal pain radiating to her back along with nausea and p.o. intolerance. Lipase mildly elevated to 135. WBC 8.6. Patient afebrile. Patient endorses recent alcohol binge prior to episode. Patient failed p.o. challenge in emergency room. Patient has had multiple CT scans in the past. Initially held off on pursing CT scan, however patient's abdominal pain was worse on exam 11/02 and she continues to have severe nausea and PO intolerance. CT abd showed pancreatitis without necrosis or pseudocyst. Abdominal US was not able to visualize the pancreas, but did note increased echogenicity of the liver favoring hepatocellular disease. Triglyceride level wnl. Will continue medical management. Plan Abdominal pain worse yesterday with trying to switch to oral pain medications -Continue LR, encourage PO intake Transition to soft low fat diet as toleratedhad to switch back to clear liquids yesterday Serial abdominal exams Pain control with morphineunable to transition to oral medications. We will consult GI for any input they might have due to persistent symptoms Hypokalemia-resolved Potassium low at 2.9 on admission. ER repleted with p.o., however patient was unable to tolerate and vomited. Has been receiving IV repletion and has normalized. Continue to follow. EtOH use Patient with a history of alcohol use and prior episodes of pancreatitis. Patient reports nearly daily alcohol use. She usually drinks wine coolers and finds that those do not aggravate her pancreatitis symptoms, but that hard liquor which she binged on prior to admission she is unable to tolerate. Patient denies any history of seizures or prior admissions for alcohol withdrawal. Will place patient on ASE protocol and monitor for withdrawal symptoms. Plan ASE protocol Magnesium, vitamin B12, folate Dental abscess-resolved Patient endorses upper molar tooth pain. Mild facial swelling on exam. No concern for threat to airway at this time. Will start patient on IV Unasyn as she is unable to tolerate PO and continue to monitor. 11/03, much improved. Patient afebrile. Infection localized to small abscess on gum line which patient burst herself. Will d/c abx. Resolved. Plan -D/c'd abx -Continue to monitor Hypertension Patient with history of hypertension on home amlodipine. Patient normotensive in emergency room. Will hold home medication and restart as needed. Uterine fibroids History of uterine fibroids which was identified on last admission. 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 She currently denies pelvic pain, urinary symptoms or any changes in her menstrual pattern. Beta hCG negative. Encouraged patient to seek gynecological evaluation as an outpatient. DVT prophylaxisLovenox Full code Disposition Home when tolerating diet. Patient reports hospital stays longer than a week with previous flares.
[2020-11-07] MEDS: Enoxaparin Sodium 40 MG/0.4 ML SYRINGE SC SCH (09:02)
[2020-11-07] MEDS: Folic Acid 1 MG TAB PO SCH (09:02)
[2020-11-07] MEDS: Thiamine 100 MG TAB PO SCH (09:02)
[2020-11-07] MEDS: Pantoprazole 40 MG VIAL IVP SCH ×2 (09:02→21:55)
--- NOTE | 2020-11-07 22:41 | CON ---
DATE OF CONSULTATION: REASON FOR CONSULT: Chronic pancreatitis, epigastric pain. HISTORY OF PRESENT ILLNESS: Ms. Grande is a 34-year-old female, who has been admitted to the hospital multiple times in the past with pancreatitis. She drinks alcohol chronically and continues to smoke. This has been going on since before 2009. She had an episode in [place], when she had pancreatitis attributed to alcohol. She also at one point in time maybe had gallstones, so she had her gallbladder removed. She was in this hospital in 08/2019, at that time with symptoms that persisted. She ultimately underwent an upper endoscopy that was normal. Apparently, she had a slight bit of hematemesis on that admission with no real significant findings. Apparently, she was improving at this admission and they began to feed her, but then she began to have abdominal pain, and she needed to go back on narcotics, so they placed her back on that and put her back on clear liquids. We have been asked to re-evaluate her. The patient is sitting up. She is drinking liquids. She is watching a movie. The nurses note she has been taking narcotics every 4 hours. She seems to be in no distress. She states that the pain is in her epigastrium. There is no radiation. There is no fever or chills. There is no nausea. There is no vomiting. She states she has reflux all the time even when she is at home. She does note she continues to smoke. This episode occurred after an episode of drinking. This hospitalization, she had a CAT scan on 11/02/2020, that showed some stranding involving the peripancreatic soft tissue along the head of the proximal body of the pancreas. There was also peripancreatic lymph node, enlarged, nonpathologic. There was no evidence of pseudocyst. There was a normal portal vein. Liver appeared normal. The gallbladder was absent. Some reactive changes in the second and third portion of the duodenum, but no evidence of bowel obstruction. Ultrasound was nondiagnostic. PAST MEDICAL HISTORY: 1. Recurrent pancreatitis, going back over 10 years, alcohol-related. 2. Hypertension. 3. Alcohol abuse. 4. Tobacco abuse. PAST SURGICAL HISTORY: Cholecystectomy. ALLERGIES: NONE KNOWN. MEDICATIONS AT HOME: Some amlodipine. SOCIAL HISTORY: She chews tobacco. She smokes half pack per day. She drinks alcohol more than five times per week, occasionally binge drinks. MEDICATIONS HERE: 1. Tylenol. 2. Lovenox. 3. Folic acid. 4. Hydrocodone. 5. Ibuprofen. 6. Morphine . 7. Zofran. 8. Protonix 40 IV daily. 9. D5 normal at 100 an hour. 10. Thiamine. PHYSICAL EXAMINATION: GENERAL: The patient is sitting up in bed. She is comfortable. She is in no distress. She is watching a movie. HEENT: Mucous membranes are pink and moist. Oropharynx, no lesions. VITAL SIGNS: Temperature is 97.7. She has been afebrile since admission. Pulse 64, blood pressure 107/69. NECK: Supple. LUNGS: Are clear. HEART: Regular rate and rhythm without clicks or murmurs. ABDOMEN: Soft and nontender. She is protuberant but soft without distention or tightness. EXTREMITIES: No clubbing, cyanosis, or edema. LABS: , potassium 4, BUN and creatinine of 4 and 0.7. AST is 63, ALT is 44, alkaline phosphatase 103, albumin 3.3. Lipase was checked today and it was 41, it was 191 on the . ASSESSMENT: 1. Acute on chronic pancreatitis from alcohol abuse and smoking abuse. 2. Reflux. 3. Previous admissions for this, most recently in August of 2019 with a similar course. 4. No signs of hematemesis or bleeding. RECOMMENDATIONS: 1. Would go to 40 IV q.12 of Protonix. 2. Advance diet slowly. 3. Wean off narcotics. 4. I see no advantage to repeating an endoscopy, it was done just about a year ago for similar circumstances. There are no signs of obstruction or bleeding, and we can treat her reflux with PPI. We will sign off. If I can be of any further assistance in the patient's care, please do not hesitate to contact me. Job ID: [id number]
[2020-11-08] MEDS: HYDROcodone/Acetaminophen 7.5/325 mg Tablet PO PRN ×2 (01:48→09:56)
[2020-11-08] MEDS: Morphine 4 MG/ML VIAL SLOW IVP PRN ×3 (03:42→13:38)
[2020-11-08] MEDS ORDERED: Bisacodyl 10 MG SUPP PR PRN (07:48)
[2020-11-08] MEDS ORDERED: Bisacodyl 5 MG TAB PO PRN (07:48)
[2020-11-08] MEDS ORDERED: Loratadine 10 MG TAB PO PRN (07:48)
[2020-11-08] MEDS ORDERED: Cepastat Lozenges 1 LOZ PO PRN (07:48)
[2020-11-08] MEDS ORDERED: Loperamide HCl 2 MG CAP PO PRN (07:48)
[2020-11-08] MEDS ORDERED: Benzonatate 100 MG CAP PO PRN (07:48)
[2020-11-08] MEDS ORDERED: Senokot S 8.6-50 MG TAB PO PRN (07:48)
[2020-11-08] MEDS ORDERED: GUAIFENESIN SF SOLN 200 MG/10 ML UDCUP PO PRN (07:48)
[2020-11-08] MEDS ORDERED: Sodium Chloride 0.65% Nasal 44 ML BOT EA NARE PRN (07:48)
[2020-11-08] MEDS ORDERED: Zolpidem Tartrate 5 MG TAB PO PRN (07:48)
[2020-11-08] MEDS ORDERED: hydrALAZINE 20 MG/ML VIAL SLOW IVP PRN (07:48)
[2020-11-08 08:18] VITALS: TEMP 97.9
[2020-11-08] MEDS: Pantoprazole 40 MG VIAL IVP SCH (08:18)
[2020-11-08] MEDS: Thiamine 100 MG TAB PO SCH (08:19)
[2020-11-08] MEDS: Enoxaparin Sodium 40 MG/0.4 ML SYRINGE SC SCH (08:19)
[2020-11-08] MEDS: Folic Acid 1 MG TAB PO SCH (08:19)
[2020-11-08] MEDS ORDERED: Polyethylene Glycol 3350 17 GM Packet PO SCH (09:00)
--- NOTE | 2020-11-08 11:14 | PDOC.DS.DS ---
Provider Date of Admission: 11/01/20 07:28 Date of Discharge: 11/08/20 Admitting Provider: Maco Mcconnell MD Consultations: Gastroentrology Primary Care Physician: [facility] Course Hospital Course: History on admission- Ms. Grande is a 34-year-old female with past medical history of pancreatitis, hypertension, uterine fibroids, alcohol use who presents to the emergency room for acute onset of abdominal pain. Patient reports her pain began approximately 36 hours prior to admission and has been constant. Patient describes pain as severe epigastric radiating to her back. She reports it feels similar to her prior episodes of pancreatitis. Patient does endorse using a large amount of alcohol to celebrate a recent job promotion which she feels set off her abdominal pain. Patient also endorses severe nausea, a few episodes of vomiting. She is unable to tolerate any food or liquid p.o. She denies fever, night sweats, chills. She denies chest pain or shortness of breath. She denies pelvic pain or urinary symptoms. Patient's prior episodes of pancreatitis thought to be caused by alcohol use and additionally another episode caused by a gallstone. Patient has undergone a cholecystectomy. In emergency room initial vital signs 129/86, 82, 18, 98.0, 100% on room air. Lipase 135, H/H 10.2/31.7. WBC 8.6. Platelets 479. BUN/CR 7/0.68, sodium 135, potassium 2.9, glucose 112. AST/ALT 21/25. T-clarence 0.5. Alk phos 144. Beta hCG was negative. Patient was admitted in the hospital and she was treated in standard fashion for acute pancreatitis, Patient had abdomen and pelvis CT scan on admission which showed 80s, there was reactive changes in the second and third portion of duodenum, no complication was identified, patient also had abdominal ultrasound which showed nonvisualization of pancreas and surgically absent gallbladder, hepatic steatosis was found, Patient's pain was controlled with narcotics, her symptoms of nausea and vomiting was controlled with symptomatic treatment while in hospital, we consulted gastroenterology, gastroenterology we are not planning to do any further procedure on her, Patient has significant clinical improvement with time, we advance her diet, she was tolerating her diet and we are discharging her home with p.o. Protonix and we have provided patient education about avoidance of alcohol, while in hospital her electrolytes corrected and her pain was controlled, patient is willing to go home today. Resuscitation Status: 11/01/20 07:45 Resuscitation Status Routine Co-Sign Provider: Resuscitation Status: FULL: Full Resuscitation Lab Results: 11/07/20 05:10 11/07/20 05:10 Abnormal Lab Results - Last 48 hrs 11/07/20 05:10: RBC 3.49 L, Hgb 10.1 L, Hct 30.9 L, RDW 26.9 H, Plt Count 448 H, Basophils % 1.3 H 11/07/20 05:10: BUN Less than 4 L, AST 63 H, Albumin 3.3 L, Globulin 3.7 H, Albumin/Globulin Ratio 0.9 L Vitals: Vital Signs (12 hours) Temp Pulse Resp BP BP Pulse Ox 11/08/20 08:00 98 11/08/20 07:41 97.9 F 65 18 91/64 98 11/08/20 03:44 98 F 70 18 123/74 96 11/08/20 01:50 101/95 H 11/08/20 00:27 98.2 F 61 18 95/64 94 L Weight Weight 200 lb Physical Exam: The patient was seen and examined on the day of discharge. General Appearance: NAD, awake alert Eye: PERRL, anicteric sclera ENT: normocephalic atraumatic, no oropharyngeal lesions Neck: supple, symmetric, no JVD, no thyromegaly Respiratory: CTAB, no wheezes, no rales, no ronchi Cardiovascular: RRR, no murmur, no gallops, no rubs Gastrointestinal: soft, non-tender, non-distended, normal bowel sounds Extremities: no cyanosis, no clubbing, no edema Skin: normal turgor, no lesions Neurological: no focal deficits Musculoskeletal: normal tone, normal strength, no muscle wasting PSYCH: normal affect, normal behavior, A&O x 3 Problem (1) Acute pancreatitis Code(s): K85.90 - ACUTE PANCREATITIS WITHOUT NECROSIS OR INFECTION, UNSP Status: Acute Qualifiers: Acute pancreatitis complication: unspecified (2) Elevated alkaline phosphatase level Code(s): R74.8 - ABNORMAL LEVELS OF OTHER SERUM ENZYMES Status: Acute (3) Hypokalemia Code(s): E87.6 - HYPOKALEMIA Status: Resolved (4) Hyponatremia Code(s): E87.1 - HYPO-OSMOLALITY AND HYPONATREMIA Status: Resolved (5) Ovarian cyst Code(s): N83.209 - UNSPECIFIED OVARIAN CYST, UNSPECIFIED SIDE Status: Chronic Qualifiers: Laterality: unspecified laterality Qualified Code(s): N83.209 - Unspecified ovarian cyst, unspecified side (6) Uterine fibroid Code(s): D25.9 - LEIOMYOMA OF UTERUS, UNSPECIFIED Status: Chronic Qualifiers: Uterine leiomyoma location: unspecified location Qualified Code(s): D25.9 - Leiomyoma of uterus, unspecified (7) Alcohol abuse Code(s): F10.10 - ALCOHOL ABUSE, UNCOMPLICATED Status: Chronic (8) Obesity (BMI 30-39.9) Code(s): E66.9 - OBESITY, UNSPECIFIED Status: Chronic (9) History of cholecystectomy Code(s): Z90.49 - ACQUIRED ABSENCE OF OTHER SPECIFIED PARTS OF DIGESTIVE TRACT Status: Chronic Plan Prescriptions: Folic Acid [Folvite] 1 mg PO DAILY #30 tab Pantoprazole [Protonix] 40 mg PO BID #60 tab Thiamine 100 mg PO DAILY #30 tab Ondansetron [Zofran ODT] 4 mg PO Q6H PRN #20 tab PRN Reason: Nausea/Vomiting Home Medications: Medication Instructions Recorded Confirmed Type Amlodipine [Norvasc] 5 mg PO DAILY 08/18/19 11/01/20 History Ibuprofen [Motrin] 600 mg PO Q6HR PRN #42 tab 08/26/19 11/01/20 Rx Folic Acid [Folvite] 1 mg PO DAILY #30 tab 11/08/20 Rx Ondansetron [Zofran ODT] 4 mg PO Q6H PRN #20 tab 11/08/20 Rx Pantoprazole [Protonix] 40 mg PO BID #60 tab 11/08/20 Rx Thiamine 100 mg PO DAILY #30 tab 11/08/20 Rx Allergies: No Known Allergies Allergy (Verified 08/18/19 00:21) Discharge Instructions:: [facility]PERCHARGER [facility]CH[facility] PRESCRIPTION AT [facility] Activity:: Activity as Tolerated Nourishment:: Heart Healthy Diet Therapies:: Not Applicable Equipment/Supplies:: Not Applicable IV Therapy:: Not Applicable Referrals: Deidra Green NP [[facility]] - 11/15/20 1:30 pm (You are scheduled to complete your registration first as it is set to . Please remember to bring all medication bottles to clinic, along with needed documentation for registration (photo ID, certificate or SS card, proof of address, and proof of income) and all hospital discharge paperwork. You will see the provider directly following at 1:45pm.) Disposition: HOME Quality CORE MEASURES:: N/A
[2020-11-08 11:45] VITALS: BP 100/74
== END 2020-11-08 14:50 | disposition home or self-care (01) | DRG 439 ==
LOC: ERS 04:59 → SURG B 07:28 → OBSVTOIN 07:28
PROVIDERS: ADMIT Internal Medicine; ATTEND Internal Medicine
DX: K85.20 Alcohol induced acute pancreatitis without necrosis or infection (principal); F10.188 Alcohol abuse with other alcohol-induced disorder; E87.1 Hypo-osmolality and hyponatremia; I10 Essential (primary) hypertension; F41.9 Anxiety disorder, unspecified; E87.6 Hypokalemia; F17.220 Nicotine dependence, chewing tobacco, uncomplicated; D25.9 Leiomyoma of uterus, unspecified; K21.9 Gastro-esophageal reflux disease without esophagitis; N83.209 Unspecified ovarian cyst, unspecified side; K04.7 Periapical abscess without sinus; Z90.49 Acquired absence of other specified parts of digestive tract; Z86.16 Personal history of COVID-19; Z79.899 Other long term (current) drug therapy; Z68.35 Body mass index [BMI] 35.0-35.9, adult
CPT/HCPCS: 36415; 36416; 74177; 80048; 80053; 80076; 81001; 82607; 82746; 82787; 83540; 83550; 83690; 83735; 84478; 84703; 85025; 86038; 86225; 93975; 96361; 96372; 96374; 96375; 96376; C9113; G0378; J0295; J1650; J1885; J2270; J2405; J3475; J3480; J3490; J7120; Q9967

== ENCOUNTER 2021-01-27 13:54 | Inpatient (IN) | payer SELFPAY ==
[2021-01-27 14:17] LABS: Bacteria/HPF None Seen HPF (None Seen); Bilirubin Negative (Negative); Blood, Urine 1+ (Negative); Clarity Clear (Clear); Glucose, Urine (Dipstick) Normal (Negative); Ketone, Urine 10 mg/dL (Negative); Leukocyte Negative Leu/uL (Negative); Nitrite Negative (Negative); Pregnancy Test - Urine (BHCG) Negative (Negative); Pregu Control Background? CLEAR/WHITE (CLR/WHITE); Pregu Control Bar Appear? YES (CONTROL BAR); Protein, Urine (Dipstick) 30 mg/dL (Neg-Trace); Specific Gravity 1.022 (1.002-1.036); Specific Gravity, Urine 1.022 (1.002-1.036); Urobilinogen Normal mg/dL (Less than 2); WBC/HPF 0-3 HPF (0-3)
[2021-01-27 14:26] LABS: #Basophils 0.1 thou/uL (0.0-0.2); #Eosinphils 0.2 thou/uL (0.0-0.7); #Lymphocytes 2.3 thou/uL (1.20-3.40); #Monocytes 0.5 thou/uL (0.11-0.59); #Neutrophils 7.6 thou/uL (1.40-6.50); %Eosinophils 2.3 % (0.0-10.0); %Lymphocytes 21.4 % (21.0-51.0); %Monocytes 4.4 % (0.0-10.0); %Neutrophils 70.9 % (42.0-75.0); Hemoglobin 11.4 g/dL (12.0-16.0); Mean Corpuscular HGB CONC 33.3 g/dL (32.0-36.0); Mean Corpuscular Hemoglobin 29.4 pg (27.0-31.0); Mean Corpuscular Volume 88.4 fL (78.0-98.0); Mean Platelet Volume 8.2 fL (7.4-10.4); Platelet Count 559 thou/uL (130-400); RBC Distribution Width 26.9 % (11.5-14.5); Red Blood Cell (RBC) Count 3.88 mill/uL (4.20-5.40); White Blood Cell (WBC) Count 10.8 thou/uL (4.8-10.8)
[2021-01-27 14:42] LABS: Anisocytosis MODERATE=16-30 cells (100X) (0-5/hpf); MDiff Complete? YES; Platelet Morphology Comment Appears Increased; Polychromasia SLIGHT = 2-3 cells (100X) (0-2/hpf); Target Cells SLIGHT = 2-5 cells (100X) (0-1/hpf)
[2021-01-27 14:47] LABS: ALT (SGPT) 17 U/L (8-55); AST (SGOT) 32 U/L (5-34); Albumin 4.1 g/dL (3.5-5.0); Alkaline Phosphatase 121 U/L (40-110); Anion Gap 17 mmol/L (10-20); BUN (Urea Nitrogen) 6 mg/dL (7.0-18.7); Bilirubin, Total 0.3 mg/dL (0.2-1.2); Calc. Creatinine Clearance 0 mL/min (70-130); Calcium 9.7 mg/dL (7.8-10.44); Carbon Dioxide 24 mmol/L (22-29); Chloride 101 mmol/L (98-107); Globulin 3.8 g/dL (2.4-3.5); Glucose 106 mg/dL (70-105); Lipase 52 U/L (8-78); Potassium 3.5 mmol/L (3.5-5.1); Protein, Total 7.9 g/dL (6.0-8.3); Sodium 138 mmol/L (136-145)
[2021-01-27] MEDS ORDERED: Ondansetron ODT 4 MG TAB ONE (15:14)
[2021-01-27] MEDS ORDERED: Morphine 4 MG/ML VIAL ONE (15:28)
[2021-01-27] MEDS ORDERED: Acetaminophen 325 MG TAB PO PRN (17:41)
[2021-01-27] MEDS: Sodium Chloride 0.9% 1,000 ML IV SCH (18:27)
[2021-01-27] MEDS: Morphine 4 MG/ML VIAL SLOW IVP PRN ×2 (18:27→22:40)
[2021-01-27] MEDS ORDERED: Magnesium 2 GM/50 ML 2 GM in Premix Bag 1 BAG IVPB SCH (20:00)
[2021-01-27] MEDS: Ketorolac Tromethamine 30 MG/ML VIAL IVP PRN (20:36)
[2021-01-28] MEDS: Ketorolac Tromethamine 30 MG/ML VIAL IVP PRN ×4 (02:19→21:23)
[2021-01-28] MEDS: Sodium Chloride 0.9% 1,000 ML IV SCH ×3 (02:19→17:38)
[2021-01-28 02:29] LABS: SARS-CoV-2 PCR by NAA Not Detected (NotDetected)
[2021-01-28] MEDS: Ondansetron ODT 4 MG TAB PO PRN ×2 (04:05→09:44)
[2021-01-28] MEDS: Morphine 4 MG/ML VIAL SLOW IVP PRN ×5 (04:08→19:59)
[2021-01-28 07:13] LABS: #Basophils 0.1 thou/uL (0.0-0.2); #Eosinphils 0.3 thou/uL (0.0-0.7); #Lymphocytes 1.8 thou/uL (1.20-3.40); #Monocytes 0.4 thou/uL (0.11-0.59); #Neutrophils 6.1 thou/uL (1.40-6.50); %Basophils 0.6 % (0.0-1.0); %Eosinophils 3.3 % (0.0-10.0); %Lymphocytes 20.6 % (21.0-51.0); %Neutrophils 70.4 % (42.0-75.0); Hemoglobin 10.2 g/dL (12.0-16.0); Mean Corpuscular HGB CONC 31.8 g/dL (32.0-36.0); Mean Corpuscular Hemoglobin 28.7 pg (27.0-31.0); Mean Corpuscular Volume 90.3 fL (78.0-98.0); Mean Platelet Volume 8.6 fL (7.4-10.4); Platelet Count 504 thou/uL (130-400); RBC Distribution Width 26.6 % (11.5-14.5); Red Blood Cell (RBC) Count 3.57 mill/uL (4.20-5.40); White Blood Cell (WBC) Count 8.6 thou/uL (4.8-10.8)
[2021-01-28 07:30] LABS: Anion Gap 12 mmol/L (10-20); BUN (Urea Nitrogen) 6 mg/dL (7.0-18.7); Calc. Creatinine Clearance 165 mL/min (70-130); Carbon Dioxide 26 mmol/L (22-29); Chloride 105 mmol/L (98-107); Glucose 88 mg/dL (70-105); Sodium 140 mmol/L (136-145)
[2021-01-28 07:34] LABS: Potassium 2.9 mmol/L (3.5-5.1)
[2021-01-28] MEDS: Amlodipine 5 MG TAB PO SCH (08:15)
[2021-01-28] MEDS ORDERED: Cyanocobalamin 1000 MCG/ML VIAL IM SCH ×2 (08:15→10:00)
[2021-01-28 09:05] LABS: ALT (SGPT) 13 U/L (8-55); AST (SGOT) 19 U/L (5-34); Albumin 3.4 g/dL (3.5-5.0); Alkaline Phosphatase 101 U/L (40-110); Bilirubin, Direct 0.2 mg/dL (0.1-0.3); Bilirubin, Total 0.4 mg/dL (0.2-1.2); Protein, Total 6.9 g/dL (6.0-8.3)
[2021-01-28] MEDS: Folic Acid 1 MG TAB PO SCH (09:37)
[2021-01-28] MEDS: Potassium Chloride 20 MEQ TAB PO SCH ×2 (09:37→12:21)
[2021-01-28] MEDS: Ondansetron PF 4 MG/2 ML Vial IVP PRN ×2 (09:44→19:59)
[2021-01-28 11:46] LABS: Anisocytosis MODERATE=16-30 cells (100X) (0-5/hpf); MDiff Complete? YES; Platelet Morphology Comment Appears Increased; Polychromasia SLIGHT = 2-3 cells (100X) (0-2/hpf)
[2021-01-28] MEDS ORDERED: Promethazine HCl 25 MG/ML VIAL IM PRN (12:03)
[2021-01-28] MEDS ORDERED: Promethazine HCl 25 MG in Sodium Chloride 0.9% 50 ML IVPB PRN (12:08)
[2021-01-28] MEDS ORDERED: Potassium Chloride 40 MEQ in Sodium Chloride 0.9% 250 ML 250 ML IVPB SCH (12:15)
[2021-01-28] MEDS ORDERED: Potassium Chloride 10 MEQ in Premix Bag 1 BAG IVPB SCH (12:15)
[2021-01-29] MEDS: Morphine 4 MG/ML VIAL SLOW IVP PRN ×3 (00:55→08:50)
[2021-01-29] MEDS: Sodium Chloride 0.9% 1,000 ML IV SCH ×4 (00:59→23:22)
[2021-01-29] MEDS: Ondansetron PF 4 MG/2 ML Vial IVP PRN ×3 (03:24→17:04)
[2021-01-29] MEDS: Ketorolac Tromethamine 30 MG/ML VIAL IVP PRN ×3 (03:24→19:02)
[2021-01-29 07:27] LABS: #Eosinphils 0.3 thou/uL (0.0-0.7); #Lymphocytes 1.1 thou/uL (1.20-3.40); #Monocytes 0.5 thou/uL (0.11-0.59); #Neutrophils 10.7 thou/uL (1.40-6.50); %Basophils 0.1 % (0.0-1.0); %Lymphocytes 8.5 % (21.0-51.0); %Monocytes 4.2 % (0.0-10.0); %Neutrophils 85.2 % (42.0-75.0); Hemoglobin 10.9 g/dL (12.0-16.0); Mean Corpuscular HGB CONC 32.5 g/dL (32.0-36.0); Mean Corpuscular Hemoglobin 29.2 pg (27.0-31.0); Mean Corpuscular Volume 89.7 fL (78.0-98.0); Mean Platelet Volume 8.7 fL (7.4-10.4); Platelet Count 501 thou/uL (130-400); RBC Distribution Width 26.7 % (11.5-14.5); Red Blood Cell (RBC) Count 3.73 mill/uL (4.20-5.40); White Blood Cell (WBC) Count 12.6 thou/uL (4.8-10.8)
[2021-01-29 07:35] LABS: Carbon Dioxide 22 mmol/L (22-29); Chloride 103 mmol/L (98-107); Sodium 137 mmol/L (136-145)
[2021-01-29 07:36] LABS: Anion Gap 15 mmol/L (10-20); BUN (Urea Nitrogen) 5 mg/dL (7.0-18.7); Calc. Creatinine Clearance 181 mL/min (70-130); Calcium 9.2 mg/dL (7.8-10.44); Glucose 103 mg/dL (70-105)
[2021-01-29 07:39] LABS: Potassium 2.8 mmol/L (3.5-5.1)
[2021-01-29 08:13] LABS: Anisocytosis MODERATE=16-30 cells (100X) (0-5/hpf); MDiff Complete? YES; Platelet Morphology Comment Appears Increased; Polychromasia SLIGHT = 2-3 cells (100X) (0-2/hpf)
[2021-01-29] MEDS: Potassium Chloride 10 MEQ in Premix Bag 1 BAG IVPB SCH ×3 (08:54→17:04)
[2021-01-29] MEDS: Amlodipine 5 MG TAB PO SCH (08:55)
[2021-01-29] MEDS: Folic Acid 1 MG TAB PO SCH (08:55)
[2021-01-29] MEDS ORDERED: Fentanyl 100 MCG/2 ML VIAL SLOW IVP SCH (11:15)
[2021-01-29] MEDS: Fentanyl 100 MCG/2 ML VIAL SLOW IVP PRN ×2 (17:04→23:19)
[2021-01-29] MEDS ORDERED: Morphine 4 MG/ML VIAL SLOW IVP SCH (21:15)
[2021-01-30] MEDS: Ondansetron PF 4 MG/2 ML Vial IVP PRN ×2 (01:37→07:50)
[2021-01-30] MEDS: Morphine 4 MG/ML VIAL SLOW IVP PRN ×4 (01:37→10:41)
[2021-01-30] MEDS: Ketorolac Tromethamine 30 MG/ML VIAL IVP PRN (05:50)
[2021-01-30] MEDS: Sodium Chloride 0.9% 1,000 ML IV SCH ×5 (06:11→23:04)
[2021-01-30] MEDS: Amlodipine 5 MG TAB PO SCH (07:49)
[2021-01-30] MEDS: Folic Acid 1 MG TAB PO SCH (07:50)
[2021-01-30] MEDS ORDERED: diphenhydrAMINE 50 MG/ML VIAL IM PRN (10:42)
[2021-01-30] MEDS ORDERED: Zolpidem Tartrate 5 MG TAB PO PRN (10:42)
[2021-01-30] MEDS ORDERED: diphenhydrAMINE 50 MG/ML VIAL IVP PRN (10:42)
[2021-01-30] MEDS ORDERED: Promethazine HCl 25 MG/ML VIAL IM PRN (10:42)
[2021-01-30] MEDS ORDERED: Ondansetron PF 4 MG/2 ML Vial IVP PRN (10:42)
[2021-01-30] MEDS ORDERED: Naloxone HCl 0.4 mg/ml Vial IV PRN (10:42)
[2021-01-30] MEDS ORDERED: diphenhydrAMINE 25 MG CAP PO PRN (10:42)
[2021-01-30] MEDS ORDERED: Communication Order-Pharmacy FS SCH (10:45)
[2021-01-30] MEDS: fentaNYL Citrate/PF 2,000 MCG in Sodium Chloride 0.9% 60 ML IV PRN (12:12)
[2021-01-30 17:43] LABS: Anion Gap 15 mmol/L (10-20); BUN (Urea Nitrogen) 4 mg/dL (7.0-18.7); Calc. Creatinine Clearance 191 mL/min (70-130); Calcium 9.3 mg/dL (7.8-10.44); Carbon Dioxide 19 mmol/L (22-29); Chloride 103 mmol/L (98-107); Glucose 73 mg/dL (70-105); Sodium 134 mmol/L (136-145)
[2021-01-30 17:47] LABS: Potassium 2.9 mmol/L (3.5-5.1)
[2021-01-30] MEDS: Potassium Chloride 20 MEQ in Premix Bag 1 BAG IVPB SCH ×2 (18:18→23:04)
[2021-01-31] MEDS: Potassium Chloride 20 MEQ in Premix Bag 1 BAG IVPB SCH (04:26)
[2021-01-31] MEDS: Sodium Chloride 0.9% 1,000 ML IV SCH ×4 (04:27→20:03)
[2021-01-31] MEDS: Folic Acid 1 MG TAB PO SCH (08:08)
[2021-01-31] MEDS: Thiamine 100 MG TAB PO SCH (08:08)
[2021-01-31] MEDS: Multivit, Therapeutic 1 TAB PO SCH (08:08)
[2021-01-31 08:55] LABS: #Basophils 0.1 thou/uL (0.0-0.2); #Eosinphils 0.4 thou/uL (0.0-0.7); #Lymphocytes 1.9 thou/uL (1.20-3.40); #Monocytes 0.4 thou/uL (0.11-0.59); #Neutrophils 8.3 thou/uL (1.40-6.50); %Basophils 0.6 % (0.0-1.0); %Eosinophils 3.6 % (0.0-10.0); %Lymphocytes 16.9 % (21.0-51.0); %Monocytes 3.8 % (0.0-10.0); %Neutrophils 75.2 % (42.0-75.0); Hemoglobin 9.8 g/dL (12.0-16.0); Mean Corpuscular HGB CONC 30.7 g/dL (32.0-36.0); Mean Corpuscular Hemoglobin 27.4 pg (27.0-31.0); Mean Corpuscular Volume 89.2 fL (78.0-98.0); Mean Platelet Volume 8.4 fL (7.4-10.4); Platelet Count 494 thou/uL (130-400); RBC Distribution Width 27.1 % (11.5-14.5); Red Blood Cell (RBC) Count 3.58 mill/uL (4.20-5.40)
[2021-01-31 09:12] LABS: Phosphorus 2.3 mg/dL (2.3-4.7)
[2021-01-31 09:14] LABS: ALT (SGPT) 8 U/L (8-55); AST (SGOT) 14 U/L (5-34); Albumin 3.3 g/dL (3.5-5.0); Alkaline Phosphatase 94 U/L (40-110); Anion Gap 13 mmol/L (10-20); BUN (Urea Nitrogen) Less than 4 mg/dL (7.0-18.7); Bilirubin, Total 0.3 mg/dL (0.2-1.2); Calc. Creatinine Clearance 208 mL/min (70-130); Calcium 8.9 mg/dL (7.8-10.44); Carbon Dioxide 22 mmol/L (22-29); Chloride 102 mmol/L (98-107); Globulin 3.6 g/dL (2.4-3.5); Glucose 70 mg/dL (70-105); Lipase 203 U/L (8-78); Magnesium 1.6 mg/dL (1.6-2.6); Potassium 3.3 mmol/L (3.5-5.1); Protein, Total 6.9 g/dL (6.0-8.3); Sodium 134 mmol/L (136-145)
[2021-01-31] MEDS: Amlodipine 5 MG TAB PO SCH (12:08)
[2021-01-31 12:50] VITALS: BMI 33.7
[2021-01-31] MEDS: Calcium Carbonate 500 MG ChewTAB PO PRN (15:58)
[2021-02-01] MEDS: Sodium Chloride 0.9% 1,000 ML IV SCH ×4 (02:00→20:23)
[2021-02-01] MEDS: fentaNYL Citrate/PF 2,000 MCG in Sodium Chloride 0.9% 60 ML IV PRN (03:55)
[2021-02-01] MEDS: Calcium Carbonate 500 MG ChewTAB PO PRN (04:00)
[2021-02-01] MEDS: Amlodipine 5 MG TAB PO SCH (07:25)
[2021-02-01] MEDS: Folic Acid 1 MG TAB PO SCH (07:25)
[2021-02-01] MEDS: Multivit, Therapeutic 1 TAB PO SCH (07:26)
[2021-02-01] MEDS: Thiamine 100 MG TAB PO SCH (07:26)
[2021-02-01 08:52] LABS: #Basophils 0.1 thou/uL (0.0-0.2); #Eosinphils 0.3 thou/uL (0.0-0.7); #Monocytes 0.6 thou/uL (0.11-0.59); #Neutrophils 6.2 thou/uL (1.40-6.50); %Basophils 1.2 % (0.0-1.0); %Eosinophils 3.1 % (0.0-10.0); %Lymphocytes 21.6 % (21.0-51.0); %Monocytes 6.5 % (0.0-10.0); %Neutrophils 67.6 % (42.0-75.0); Hemoglobin 9.1 g/dL (12.0-16.0); Mean Corpuscular HGB CONC 32.9 g/dL (32.0-36.0); Mean Corpuscular Hemoglobin 29.4 pg (27.0-31.0); Mean Corpuscular Volume 89.5 fL (78.0-98.0); Mean Platelet Volume 8.3 fL (7.4-10.4); Platelet Count 407 thou/uL (130-400); RBC Distribution Width 27.1 % (11.5-14.5); White Blood Cell (WBC) Count 9.1 thou/uL (4.8-10.8)
[2021-02-01 09:05] LABS: Anisocytosis MODERATE=16-30 cells (100X) (0-5/hpf); MDiff Complete? YES; Platelet Morphology Comment Appears Increased; Polychromasia SLIGHT = 2-3 cells (100X) (0-2/hpf)
[2021-02-01 09:19] LABS: ALT (SGPT) 16 U/L (8-55); AST (SGOT) 34 U/L (5-34); Alkaline Phosphatase 92 U/L (40-110); Anion Gap 10 mmol/L (10-20); BUN (Urea Nitrogen) Less than 4 mg/dL (7.0-18.7); Bilirubin, Total 0.3 mg/dL (0.2-1.2); Calc. Creatinine Clearance 203 mL/min (70-130); Calcium 8.9 mg/dL (7.8-10.44); Carbon Dioxide 24 mmol/L (22-29); Chloride 103 mmol/L (98-107); Globulin 3.3 g/dL (2.4-3.5); Glucose 72 mg/dL (70-105); Lipase 162 U/L (8-78); Protein, Total 6.3 g/dL (6.0-8.3); Sodium 134 mmol/L (136-145)
[2021-02-01] MEDS: Potassium Chloride 20 MEQ TAB PO SCH ×2 (16:39→20:22)
[2021-02-02] MEDS: Sodium Chloride 0.9% 1,000 ML IV SCH ×4 (00:21→18:32)
[2021-02-02 06:48] LABS: ALT (SGPT) 38 U/L (8-55); AST (SGOT) 63 U/L (5-34); Albumin 2.8 g/dL (3.5-5.0); Alkaline Phosphatase 109 U/L (40-110); Anion Gap 8 mmol/L (10-20); BUN (Urea Nitrogen) Less than 4 mg/dL (7.0-18.7); Bilirubin, Total 0.2 mg/dL (0.2-1.2); Calc. Creatinine Clearance 190 mL/min (70-130); Calcium 8.7 mg/dL (7.8-10.44); Carbon Dioxide 23 mmol/L (22-29); Chloride 106 mmol/L (98-107); Globulin 3.4 g/dL (2.4-3.5); Glucose 113 mg/dL (70-105); Lipase 210 U/L (8-78); Potassium 3.4 mmol/L (3.5-5.1); Protein, Total 6.2 g/dL (6.0-8.3); Sodium 134 mmol/L (136-145)
[2021-02-02 07:23] LABS: #Eosinphils 0.3 thou/uL (0.0-0.7); #Lymphocytes 2.4 thou/uL (1.20-3.40); #Monocytes 0.8 thou/uL (0.11-0.59); #Neutrophils 5.4 thou/uL (1.40-6.50); %Basophils 0.4 % (0.0-1.0); %Eosinophils 3.6 % (0.0-10.0); %Lymphocytes 26.9 % (21.0-51.0); %Monocytes 8.5 % (0.0-10.0); %Neutrophils 60.6 % (42.0-75.0); Hemoglobin 9.1 g/dL (12.0-16.0); Mean Corpuscular HGB CONC 32.7 g/dL (32.0-36.0); Mean Corpuscular Hemoglobin 29.4 pg (27.0-31.0); Mean Corpuscular Volume 89.8 fL (78.0-98.0); Mean Platelet Volume 8.7 fL (7.4-10.4); Platelet Count 421 thou/uL (130-400); RBC Distribution Width 27.3 % (11.5-14.5); Red Blood Cell (RBC) Count 3.11 mill/uL (4.20-5.40); White Blood Cell (WBC) Count 8.9 thou/uL (4.8-10.8)
[2021-02-02 07:24] LABS: Anisocytosis MODERATE=16-30 cells (100X) (0-5/hpf); MDiff Complete? YES; Platelet Morphology Comment Appears Increased
[2021-02-02] MEDS ORDERED: Potassium Chloride 20 MEQ TAB PO SCH (08:00)
[2021-02-02] MEDS: Multivit, Therapeutic 1 TAB PO SCH (08:29)
[2021-02-02] MEDS: Folic Acid 1 MG TAB PO SCH (08:29)
[2021-02-02] MEDS: Thiamine 100 MG TAB PO SCH (08:29)
[2021-02-02] MEDS: Amlodipine 5 MG TAB PO SCH (08:30)
[2021-02-02] MEDS: fentaNYL Citrate/PF 2,000 MCG in Sodium Chloride 0.9% 60 ML IV PRN (12:20)
[2021-02-03] MEDS: Sodium Chloride 0.9% 1,000 ML IV SCH ×3 (06:30→17:17)
[2021-02-03] MEDS: Amlodipine 5 MG TAB PO SCH (08:41)
[2021-02-03] MEDS: Folic Acid 1 MG TAB PO SCH (08:41)
[2021-02-03] MEDS: Multivit, Therapeutic 1 TAB PO SCH (08:41)
[2021-02-03] MEDS: Thiamine 100 MG TAB PO SCH (08:41)
[2021-02-03 08:48] LABS: Anion Gap 11 mmol/L (10-20); BUN (Urea Nitrogen) Less than 4 mg/dL (7.0-18.7); Calc. Creatinine Clearance 183 mL/min (70-130); Calcium 8.6 mg/dL (7.8-10.44); Carbon Dioxide 25 mmol/L (22-29); Chloride 104 mmol/L (98-107); Glucose 111 mg/dL (70-105); Potassium 3.1 mmol/L (3.5-5.1); Sodium 137 mmol/L (136-145)
[2021-02-03 08:49] LABS: #Basophils 0.1 thou/uL (0.0-0.2); #Eosinphils 0.4 thou/uL (0.0-0.7); #Lymphocytes 2.1 thou/uL (1.20-3.40); #Monocytes 0.8 thou/uL (0.11-0.59); #Neutrophils 5.5 thou/uL (1.40-6.50); %Basophils 1.1 % (0.0-1.0); %Eosinophils 4.4 % (0.0-10.0); %Lymphocytes 23.7 % (21.0-51.0); %Monocytes 8.8 % (0.0-10.0); Anisocytosis SLIGHT = 6-15 cells (100X) (0-5/hpf); Hemoglobin 9.6 g/dL (12.0-16.0); MDiff Complete? YES; Mean Corpuscular HGB CONC 31.6 g/dL (32.0-36.0); Mean Corpuscular Hemoglobin 28.4 pg (27.0-31.0); Mean Corpuscular Volume 90.1 fL (78.0-98.0); Mean Platelet Volume 8.6 fL (7.4-10.4); Platelet Count 460 thou/uL (130-400); Poikilocytosis SLIGHT = 6-15 cells (100X) (0-5/hpf); RBC Distribution Width 27.4 % (11.5-14.5); Red Blood Cell (RBC) Count 3.37 mill/uL (4.20-5.40); White Blood Cell (WBC) Count 8.8 thou/uL (4.8-10.8)
[2021-02-03] MEDS ORDERED: Potassium Chloride 20 MEQ/100 ML PREMIX BAG IVPB SCH (11:00)
[2021-02-03] MEDS ORDERED: Morphine 2 MG/ML VIAL SLOW IVP PRN (11:23)
[2021-02-03] MEDS ORDERED: traMADol HCl 50 MG TAB PO PRN (11:24)
[2021-02-03] MEDS: Morphine 4 MG/ML VIAL SLOW IVP PRN ×3 (14:56→23:29)
[2021-02-03] MEDS: Potassium Chloride 20 MEQ TAB PO SCH (17:18)
[2021-02-04] MEDS: Sodium Chloride 0.9% 1,000 ML IV SCH ×2 (03:29→13:03)
[2021-02-04] MEDS: Morphine 4 MG/ML VIAL SLOW IVP PRN ×2 (03:30→08:11)
[2021-02-04 06:49] LABS: Anion Gap 11 mmol/L (10-20); BUN (Urea Nitrogen) Less than 4 mg/dL (7.0-18.7); Calc. Creatinine Clearance 186 mL/min (70-130); Carbon Dioxide 24 mmol/L (22-29); Chloride 106 mmol/L (98-107); Glucose 93 mg/dL (70-105); Potassium 3.4 mmol/L (3.5-5.1); Sodium 138 mmol/L (136-145)
[2021-02-04] MEDS: Amlodipine 5 MG TAB PO SCH (08:07)
[2021-02-04] MEDS: Folic Acid 1 MG TAB PO SCH (08:09)
[2021-02-04] MEDS: Thiamine 100 MG TAB PO SCH (08:10)
[2021-02-04] MEDS: Potassium Chloride 20 MEQ TAB PO SCH (08:10)
[2021-02-04] MEDS: Multivit, Therapeutic 1 TAB PO SCH (08:10)
[2021-02-04 16:33] VITALS: BP 114/69; TEMP 98.9
== END 2021-02-04 17:43 | disposition home or self-care (01) | DRG 440 ==
LOC: ERS 13:54 → T4-B 16:26 → OBSVTOIN 16:26 → T4-B 17:36
PROVIDERS: ADMIT Internal Medicine; ATTEND Internal Medicine
PROC: HZ2ZZZZ Detoxification Services for Substance Abuse Treatment (ICD-10-PCS; principal; 2021-01-31)
DX: K85.90 Acute pancreatitis without necrosis or infection, unspecified (principal); I10 Essential (primary) hypertension; F10.10 Alcohol abuse, uncomplicated; E87.6 Hypokalemia; E53.8 Deficiency of other specified B group vitamins; E66.9 Obesity, unspecified; Z20.822 Contact with and (suspected) exposure to COVID-19; Z90.49 Acquired absence of other specified parts of digestive tract; Z71.41 Alcohol abuse counseling and surveillance of alcoholic; Z68.33 Body mass index [BMI] 33.0-33.9, adult
CPT/HCPCS: 36415; 74177; 80048; 80053; 80076; 81003; 81015; 81025; 82607; 82746; 83690; 83735; 84100; 84425; 85025; 87635; 93005; 96365; 96372; 96374; 96375; 96376; G0378; J1885; J2270; J2405; J2550; J3010; J3420; J3475; J3480; J3490; J7050; Q0162; Q9967; U0003; U0005